=== PATIENT | male | born 1985 | race Caucasian/White ===

== ENCOUNTER 2018-07-25 10:35 | Emergency (ER) | payer SELFPAY ==
[2018-07-25 11:38] LABS: Absolute Monocytes 0.7 K/uL (0.1-1.3); Absolute Neutrophil 7.2 K/uL (1.8-8.0); Basophils % 0.4 % (0-1.3); Eosinophils % 5.5 % (0-4.4); Hematocrit 42.8 % (39.6-49.0); Lymphocytes % 18.5 % (15.3-44.8); MCH 31.8 pg (27.0-35.0); MCV 93.6 fL (80-100); MPV 9.3 fL (7.6-11.3); Monocytes % 6.9 % (3.3-12.3); RBC Red Blood Cell Count 4.57 M/uL (4.33-5.43)
[2018-07-25 11:45] LABS: Protime INR 0.89
[2018-07-25 11:56] LABS: ALT/SGPT 41 U/L (12-78); AST/SGOT 24 U/L (15-37); Albumin 3.8 g/dL (3.4-5.0); Alkaline Phosphatase 102 U/L (45-117); BUN Blood Urea Nitrogen 13 mg/dL (7-18); Bicarbonate 25 mmol/L (21-32); Bilirubin Direct < 0.1 mg/dL (0-0.2); Bilirubin Total 0.3 mg/dL (0.2-1.0); Glucose Level 83 mg/dL (74-106); Magnesium 2.3 mg/dL (1.8-2.4); NT PRO-BNP 16 pg/mL (<125); Potassium 4.2 mmol/L (3.5-5.1); Protein, Total 7.3 g/dL (6.4-8.2); Sodium Level 137 mmol/L (136-145); Troponin (Emerg Dept Use Only) < 0.02 ng/mL (0.0-0.045)
[2018-07-25 12:00] LABS: Urine Blood NEGATIVE (NEG); Urine Glucose NEGATIVE (NEG); Urine Protein NEGATIVE (NEG); Urine Specific Gravity 1.025 (1.005-1.030); Urine pH 5.5 (5.0-7.0)
[2018-07-25 12:15] LABS: Barbiturates NEGATIVE (NEGATIVE); Benzodiazepines NEGATIVE (NEGATIVE); Cocaine NEGATIVE (NEGATIVE); METHAMPHETAM NEGATIVE (NEGATIVE); Methadone NEGATIVE (NEGATIVE); Opiates NEGATIVE (NEGATIVE); Phencyclidine NEGATIVE (NEGATIVE); THC Cannibis NEGATIVE (NEGATIVE)
--- NOTE | 2018-07-25 12:17 | RAD REPORT ---
EXAM DESCRIPTION: Sadiq Single View07/25/2018 11:53 am CLINICAL HISTORY: Chest pain COMPARISON: 2013 FINDINGS: The lungs appear clear of acute infiltrate. The heart is normal size IMPRESSION: No acute abnormalities displayed
[2018-07-25 13:16] LABS: T3 Free 2.95 pg/mL (2.18-3.98); Thyroid Stimulating Hormone 4.75 uIU/mL (0.360-3.740)
--- NOTE | 2018-07-25 13:54 | EKG ---
Test Date: 2018-07-25 Test Time: 11:37:31 Viscose Cellar Worker: NIRANJAN MEASUREMENT RESULTS: Intervals: Rate: 64 MI: 120 QRSD: 106 QT: 396 QTc: 408 [place]: P: 69 MI: 120 QRS: 66 T: 48 INTERPRETIVE STATEMENTS: Normal sinus rhythm Normal ECG Compared to ECG 07/18/2014 14:20:23 Sinus arrhythmia no longer present Electronically Signed On 07-25-18 13:53:08 CDT by Edmund Rios
--- NOTE | 2018-07-25 14:01 | ER ---
Nurse's Notes [facility] Name: Karson Gant Age: 33 yrs Sex: Male : 1985 Arrival Date: 07/25/2018 Time: 10:37 Bed 7 Private MD: Diagnosis: Chest pain, unspecified Presentation: 07/25 10:49 Presenting complaint: Patient states: Dry mouth, chest/ back discomfort and mild, ss bilateral flank pain x 2 days. Pt reports a history of hypothyroidism, but has yet to fill prescription. Transition of care: patient was not received from another setting of care. Onset of symptoms was July 23, 2018. Risk Assessment: Do you want to hurt yourself or someone else? Patient reports no desire to harm self or others. Initial Sepsis Screen: Does the patient meet any 2 criteria? No. Patient's initial sepsis screen is negative. Does the patient have a suspected source of infection? No. Patient's initial sepsis screen is negative. Care prior to arrival: None. 10:49 Method Of Arrival: Ambulatory ss 10:49 Acuity: BASIL 3 ss Historical: - Allergies: 10:49 PENICILLINS; hb - Home Meds: 10:49 None [Active]; hb - PMHx: 10:49 Hypothyroidism; Hypertension; hb - PSHx: 10:49 Tear Duct Sx; hb - Immunization history:: Adult Immunizations up to date. - Social history:: Smoking status: Patient uses tobacco products, smokes one-half pack cigarettes per day, Patient uses street drugs, Methamphetamine (Meth) Patient/guardian denies using alcohol. - Ebola Screening: : No symptoms or risks identified at this time. Screenin:51 Abuse screen: Denies threats or abuse. Denies injuries from another. Nutritional hb screening: No deficits noted. Tuberculosis screening: No symptoms or risk factors identified. Fall Risk None identified. Assessment: 11:00 General: Appears in no apparent distress. Behavior is calm, cooperative. Pain: Pain hb currently is 4 out of 10 on a pain scale. Neuro: Level of Consciousness is awake, alert, obeys commands, Oriented to person, place, time, situation. Cardiovascular: Capillary refill < 3 seconds Patient's skin is warm and dry. Respiratory: Airway is patent Respiratory effort is even, unlabored, Respiratory pattern is regular, symmetrical, Breath sounds are clear bilaterally. GI: No signs and/or symptoms were reported involving the gastrointestinal system. : No signs and/or symptoms were reported regarding the genitourinary system. EENT: No signs and/or symptoms were reported regarding the EENT system. Derm: Skin is intact, is healthy with good turgor, Skin is pink, warm \T\ dry. Musculoskeletal: Reports back oain. 12:00 Reassessment: Patient appears in no apparent distress at this time. No changes from hb previously documented assessment. Patient and/or family updated on plan of care and expected duration. Pain level reassessed. Patient is alert, oriented x 3, equal unlabored respirations, skin warm/dry/pink. 13:00 Reassessment: Patient appears in no apparent distress at this time. No changes from hb previously documented assessment. Patient and/or family updated on plan of care and expected duration. Pain level reassessed. Patient is alert, oriented x 3, equal unlabored respirations, skin warm/dry/pink. 14:00 Reassessment: Patient appears in no apparent distress at this time. No changes from hb previously documented assessment. Patient and/or family updated on plan of care and expected duration. Pain level reassessed. Patient is alert, oriented x 3, equal unlabored respirations, skin warm/dry/pink. Vital Signs: 10:48 BP 115 / 84; Pulse 84; Resp 15; Temp 97.9(TE); Pulse Ox 100% on R/A; Weight 68.04 kg; hb Height 5 ft. 6 in. (167.64 cm); Pain 6/10; 11:45 BP 113 / 85; Pulse 80; Resp 15; Pulse Ox 100% on R/A; hb 13:00 BP 114 / 79; Pulse 61; Resp 16; Pulse Ox 100% on R/A; hb 10:48 Body Mass Index 24.21 (68.04 kg, 167.64 cm) hb ED Course: 10:37 Patient arrived in ED. as 10:46 Kris Andre PA is PHCP. cp 10:46 Kris Echevarria MD is Attending Physician. cp 10:48 Arm band placed on. hb 10:50 Triage completed. ss 11:00 Patient has correct armband on for positive identification. Placed in gown. Bed in low hb position. Call light in reach. Side rails up X 1. 11:31 Initial lab(s) drawn, by sd, sent to lab. Inserted saline lock: 20 gauge in right em1 forearm, using aseptic technique. Blood collected. 11:37 X-ray completed. Portable x-ray completed in exam room. Patient tolerated procedure ag1 well. 11:39 XRAY Chest (1 view) In Process Unspecified. EDMS 11:43 Destiney Barr, RN is Primary Nurse. ss 11:50 EKG done, by solar maintenance technician. reviewed by Kris BABCOCK. at1 13:45 Basic Metabolic Panel Sent. hb 13:45 CBC with Diff Sent. hb 14:09 No provider procedures requiring assistance completed. IV discontinued, intact, hb bleeding controlled, No redness/swelling at site. Pressure dressing applied. Administered Medications: No medications were administered Outcome: 14:00 Discharge ordered by . cp 14:09 Discharged to home ambulatory. hb 14:09 Condition: stable 14:09 Discharge instructions given to patient, Instructed on discharge instructions, follow up and referral plans. medication usage, Demonstrated understanding of instructions, follow-up care, medications. 14:10 Patient left the ED. hb Signatures: Dispatcher [employer] EDCT Mariela Lainez Eric em1 Destiney Barr, RN RN Yuko Gambino, [employer] glazer EKG Tat1 Radha Velazquez ag1 Kris Andre PA PA cp Baxter, Heather, RN RN hb
--- NOTE | 2018-07-25 14:02 | EDPHYS ---
Physician Documentation [facility] Name: Karson Gant Age: 33 yrs Sex: Male : 1985 Arrival Date: 07/25/2018 Time: 10:37 Bed 7 Private MD: ED Physician Kris Echevarria HPI: 07/25 11:39 This 33 yrs old Male presents to ER via Ambulatory with complaints of High cp Blood Pressure, Medication Refill. 11:39 The patient or guardian reports chest pain that is located primarily in the anterior cp chest wall. 11:39 The pain does not radiate. cp 11:39 Associated signs and symptoms: Pertinent positives: abdominal pain, back pain, flank cp pain, Pertinent negatives: cough, diaphoresis, lower extremity pain, lower extremity swelling, shortness of breath, syncope, vomiting. 11:39 The chest pain is described as aching. Duration: The patient or guardian reports cp multiple episodes, that wax and wane, with no pattern. Modifying factors: the symptoms are aggravated by nothing. Severity of pain: in the emergency department the pain has improved moderately. Patient admits to using methamphetamine 2 weeks ago. Historical: - Allergies: 10:49 PENICILLINS; hb - Home Meds: 10:49 None [Active]; hb - PMHx: 10:49 Hypothyroidism; Hypertension; hb - PSHx: 10:49 Tear Duct Sx; hb - Immunization history:: Adult Immunizations up to date. - Social history:: Smoking status: Patient uses tobacco products, smokes one-half pack cigarettes per day, Patient uses street drugs, Methamphetamine (Meth) Patient/guardian denies using alcohol. - Ebola Screening: : No symptoms or risks identified at this time. ROS: 11:40 Constitutional: Negative for body aches, chills, fever, poor PO intake. cp 11:40 Eyes: Negative for injury, pain, redness, and discharge. cp 11:40 ENT: Negative for drainage from ear(s), ear pain, sore throat, difficulty swallowing, difficulty handling secretions. 11:40 Cardiovascular: Positive for chest pain, Negative for edema, palpitations. 11:40 Respiratory: Negative for cough, shortness of breath, wheezing. 11:40 Abdomen/GI: Negative for abdominal pain, nausea, vomiting, and diarrhea, black/tarry stool, rectal bleeding. 11:40 Back: Positive for pain at rest, Negative for injury or acute deformity. 11:40 Skin: Negative for cellulitis, rash. 11:40 Neuro: Negative for altered mental status, dizziness, headache, syncope, near syncope, weakness. 11:40 All other systems are negative. Exam: 11:41 ECG was reviewed by the Attending Physician. cp 11:45 Constitutional: The patient appears in no acute distress, alert, awake, comfortable, cp non-diaphoretic, non-toxic, well developed, well nourished. 11:45 Head/Face: Normocephalic, atraumatic. cp 11:45 Eyes: Pupils equal round and reactive to light, extra-ocular motions intact. Lids and lashes normal. Conjunctiva and sclera are non-icteric and not injected. Cornea within normal limits. Periorbital areas with no swelling, redness, or edema. ENT: Nares patent. No nasal discharge, no septal abnormalities noted. Tympanic membranes are normal and external auditory canals are clear. Oropharynx with no redness, swelling, or masses, exudates, or evidence of obstruction, uvula midline. Mucous membranes moist. Neck: Trachea midline, no thyromegaly or masses palpated, and no cervical lymphadenopathy. Supple, full range of motion without nuchal rigidity, or vertebral point tenderness. No Meningismus. Chest/axilla: Normal chest wall appearance and motion. Nontender with no deformity. No lesions are appreciated. Cardiovascular: Regular rate and rhythm with a normal S1 and S2. No gallops, murmurs, or rubs. Normal PMI, no JVD. No pulse deficits. Respiratory: Lungs have equal breath sounds bilaterally, clear to auscultation and percussion. No rales, rhonchi or wheezes noted. No increased work of breathing, no retractions or nasal flaring. Abdomen/GI: Soft, non-tender, with normal bowel sounds. No distension or tympany. No guarding or rebound. No evidence of tenderness throughout. Back: No spinal tenderness. No costovertebral tenderness. Full range of motion. Skin: Warm, dry with normal turgor. Normal color with no rashes, no lesions, and no evidence of cellulitis. Neuro: Awake and alert, GCS 15, oriented to person, place, time, and situation. Cranial nerves II-XII grossly intact. Motor strength 5/5 in all extremities. Sensory grossly intact. Cerebellar exam normal. Normal gait. Vital Signs: 10:48 BP 115 / 84; Pulse 84; Resp 15; Temp 97.9(TE); Pulse Ox 100% on R/A; Weight 68.04 kg; hb Height 5 ft. 6 in. (167.64 cm); Pain 6/10; 11:45 BP 113 / 85; Pulse 80; Resp 15; Pulse Ox 100% on R/A; hb 13:00 BP 114 / 79; Pulse 61; Resp 16; Pulse Ox 100% on R/A; hb 10:48 Body Mass Index 24.21 (68.04 kg, 167.64 cm) hb MDM: 10:46 Patient medically screened. cp 12:00 Differential diagnosis: abnormal EKG, acute myocardial infarction, acute pericarditis, cp chest wall pain, Cholelithiasis costochondritis, pericarditis, pleurisy, pneumonia, pneumothorax, pulmonary embolus, stable angina, unstable angina. 14:00 Data reviewed: vital signs, nurses notes, lab test result(s), EKG, radiologic studies, cp plain films. 14:00 Test interpretation: by ED physician or midlevel provider: ECG, plain radiologic cp studies. Counseling: I had a detailed discussion with the patient and/or guardian regarding: the historical points, exam findings, and any diagnostic results supporting the discharge/admit diagnosis, lab results, radiology results, the need for outpatient follow up, a family practitioner, to return to the emergency department if symptoms worsen or persist or if there are any questions or concerns that arise at home. Special discussion: Based on the patient's history, exam, and Dx evaluation, there is no indication for emergent intervention or inpatient Tx. It is understood by the patient/guardian that if the Sx's persist or worsen they need to return immediately for re-evaluation. 07/25 11:13 Order name: Basic Metabolic Panel cp 07/25 11:13 Order name: CBC with Diff cp 07/25 11:13 Order name: LFT's; Complete Time: 12:29 cp 07/25 11:13 Order name: Magnesium; Complete Time: 12:29 cp 07/25 13:48 Interpretation: MG 2.3; Reviewed. cp 07/25 11:13 Order name: NT PRO-BNP; Complete Time: 12:29 cp 07/25 11:13 Order name: PT-INR; Complete Time: 12:29 cp 07/25 11:13 Order name: Troponin (emerg Dept Use Only); Complete Time: 12:29 cp 07/25 12:30 Interpretation: TROPED < 0.02; Reviewed. cp 07/25 11:13 Order name: UDS; Complete Time: 12:29 cp 07/25 12:31 Interpretation: Reviewed. cp 07/25 11:13 Order name: Basic Metabolic Panel; Complete Time: 12:29 EDMS 07/25 11:13 Order name: CBC with Automated Diff; Complete Time: 12:29 EDMS 07/25 12:31 Interpretation: Normal except: EOSINOPHIL % 5.5; EOSA 0.6. cp 07/25 11:57 Order name: Urine Dipstick--Ancillary (enter results); Complete Time: 12:29 bd 07/25 12:30 Order name: TSH; Complete Time: 13:47 cp 07/25 13:47 Interpretation: Abnormal: TSH 4.750. cp 07/25 12:30 Order name: T3 Free; Complete Time: 13:47 cp 07/25 13:47 Interpretation: Within normal limits: T3F 2.95. cp 07/25 11:13 Order name: XRAY Chest (1 view); Complete Time: 12:29 cp 07/25 12:30 Interpretation: Report review. cp 07/25 11:13 Order name: EKG; Complete Time: 11:13 cp 07/25 11:13 Order name: Cardiac monitoring; Complete Time: 11:56 cp 07/25 11:13 Order name: EKG - Nurse/Tech; Complete Time: 11:56 cp 07/25 11:13 Order name: IV Saline Lock; Complete Time: 11:40 cp 07/25 11:13 Order name: Labs collected and sent; Complete Time: 11:40 cp 07/25 11:13 Order name: O2 Per Protocol; Complete Time: 11:56 cp 07/25 11:13 Order name: O2 Sat Monitoring; Complete Time: 11:56 cp 07/25 12:32 Order name: Urine Dipstick-Ancillary (obtain specimen); Complete Time: 12:34 cp 07/25 13:17 Order name: T4 Free; Complete Time: 13:47 EDMS EC:41 Rate is 64 beats/min. Rhythm is regular. MA interval is normal. QRS interval is cp prolonged at 106 msec. QT interval is normal. Interpreted by me. Reviewed by me. Administered Medications: No medications were administered Disposition: 07/26 09:00 Co-signature as Attending Physician, Kris Echevarria MD I agree with the assessment and [facility] plan of care. Disposition: 07/25/18 14:00 Discharged to Home. Impression: Chest pain, unspecified. - Condition is Stable. - Discharge Instructions: Nonspecific Chest Pain. - Medication Reconciliation Form, Thank You Letter, Antibiotic Education, Prescription Opioid Use form. - Follow up: Private Physician; When: 2 - 3 days; Reason: Recheck today's complaints. - Problem is new. - Symptoms have improved. Signatures: Dispatcher [employer] EDMS Kris Echevarria MD MD cha Page, Corey PA PA cp Linda Colby, RN RN Corrections: (The following items were deleted from the chart) 07/25 12:31 12:29 Normal except: EOSINOPHIL % 5.5. cp cp 14:10 14:00 07/25/2018 14:00 Discharged to Home. Impression: Chest pain, unspecified. hb Condition is Stable. Forms are Medication Reconciliation Form, Thank You Letter, Antibiotic Education, Prescription Opioid Use. Follow up: Private Physician; When: 2 - 3 days; Reason: Recheck today's complaints. Problem is new. Symptoms have improved. cp
[2018-07-25 14:22] VITALS: TEMP 97.9; O2SAT 100
[2018-07-25 14:24] VITALS: BP 114/79
== END 2018-07-25 14:10 | disposition home or self-care (01) ==
LOC: ER 10:35
DX: R07.9 Chest pain, unspecified (principal); Z76.0 Encounter for issue of repeat prescription; Z88.0 Allergy status to penicillin
CPT/HCPCS: 36415; 71045; 80048; 80076; 80307; 81003; 83735; 83880; 84439; 84443; 84481; 84484; 85025; 85610; 93005; 99284

== ENCOUNTER 2019-01-03 03:45 | Emergency (ER) | payer SELFPAY ==
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
--- NOTE | 2019-01-03 04:48 | EDPHYS ---
Physician Documentation [facility] Name: Karson Gant Age: 33 yrs Sex: Male : 1985 Arrival Date: 01/03/2019 Time: 03:45 Bed 2 Private MD: JOSELIN Physician Kris Echevarria HPI: 01/03 04:42 This 33 yrs old Male presents to ER via EMS with complaints of Abscess. esperanza 04:42 The patient presents with an abscess of the back, The patient presents with cellulitis esperanza of the back, the patient presents with a swollen area of the back. Description: erythematous, fluctuant, raised. Onset: The symptoms/episode began/occurred 3 day(s) ago. Possible cause(s): unknown. Associated signs and symptoms: Pertinent positives: erythema. Modifying factors: the symptoms are alleviated by remaining still, the symptoms are aggravated by pressure, squeezing the lesion and expressing the contents, touching. Severity of symptoms: At their worst the symptoms were mild, moderate, in the emergency department the symptoms are unchanged. The patient has not experienced similar symptoms in the past. Historical: - Allergies: 03:50 PENICILLINS; tl2 - Home Meds: 03:50 None [Active]; tl2 - PMHx: 03:50 Hypertension; Hypothyroidism; tl2 - PSHx: 03:50 tear duct; tl2 - Immunization history:: Adult Immunizations up to date. - Social history:: Smoking status: Patient uses tobacco products, smokes one pack cigarettes per day. - Ebola Screening: : No symptoms or risks identified at this time. - Family history:: not pertinent. ROS: 04:42 Constitutional: Negative for fever, chills, and weight loss, Eyes: Negative for injury, esperanza pain, redness, and discharge, ENT: Negative for injury, pain, and discharge, Neck: Negative for injury, pain, and swelling, Cardiovascular: Negative for chest pain, palpitations, and edema, Respiratory: Negative for shortness of breath, cough, wheezing, and pleuritic chest pain, Abdomen/GI: Negative for abdominal pain, nausea, vomiting, diarrhea, and constipation, Back: Negative for injury and pain, : Negative for injury, bleeding, discharge, and swelling, MS/Extremity: Negative for injury and deformity, Neuro: Negative for headache, weakness, numbness, tingling, and seizure, Psych: Negative for depression, anxiety, suicide ideation, homicidal ideation, and hallucinations, Allergy/Immunology: Negative for hives, rash, and allergies, Endocrine: Negative for neck swelling, polydipsia, polyuria, polyphagia, and marked weight changes, Hematologic/Lymphatic: Negative for swollen nodes, abnormal bleeding, and unusual bruising. 04:42 Skin: Positive for erythema, swelling. Exam: 04:42 Constitutional: This is a well developed, well nourished patient who is awake, alert, esperanza and in no acute distress. Head/Face: Normocephalic, atraumatic. Eyes: Pupils equal round and reactive to light, extra-ocular motions intact. Lids and lashes normal. Conjunctiva and sclera are non-icteric and not injected. Cornea within normal limits. Periorbital areas with no swelling, redness, or edema. ENT: Nares patent. No nasal discharge, no septal abnormalities noted. Tympanic membranes are normal and external auditory canals are clear. Oropharynx with no redness, swelling, or masses, exudates, or evidence of obstruction, uvula midline. Mucous membranes moist. Neck: Trachea midline, no thyromegaly or masses palpated, and no cervical lymphadenopathy. Supple, full range of motion without nuchal rigidity, or vertebral point tenderness. No Meningismus. Chest/axilla: Normal chest wall appearance and motion. Nontender with no deformity. No lesions are appreciated. Cardiovascular: Regular rate and rhythm with a normal S1 and S2. No gallops, murmurs, or rubs. Normal PMI, no JVD. No pulse deficits. Respiratory: Lungs have equal breath sounds bilaterally, clear to auscultation and percussion. No rales, rhonchi or wheezes noted. No increased work of breathing, no retractions or nasal flaring. Abdomen/GI: Soft, non-tender, with normal bowel sounds. No distension or tympany. No guarding or rebound. No evidence of tenderness throughout. Back: No spinal tenderness. No costovertebral tenderness. Full range of motion. MS/ Extremity: Pulses equal, no cyanosis. Neurovascular intact. Full, normal range of motion. Neuro: Awake and alert, GCS 15, oriented to person, place, time, and situation. Cranial nerves II-XII grossly intact. Motor strength 5/5 in all extremities. Sensory grossly intact. Cerebellar exam normal. Normal gait. Psych: Awake, alert, with orientation to person, place and time. Behavior, mood, and affect are within normal limits. 04:42 Skin: Appearance: Temperature: hot, Moisture: normal moisture, petechiae, not noted, ecchymosis, not noted, abscess, that is moderate sized, of the back, cellulitis, that is mild, that is moderate, induration, that is moderate is noted. Vital Signs: 03:50 BP 135 / 98; Pulse 74; Resp 18; Temp 98.6(O); Pulse Ox 98% on R/A; Weight 61.23 kg; tl2 Height 5 ft. 6 in. (167.64 cm); Pain 8/10; 04:47 BP 127 / 86; Pulse 64; Resp 16; Pulse Ox 100% on R/A; aa1 05:46 BP 129 / 73; Pulse 71; Resp 16; Pulse Ox 98% on R/A; Pain 0/10; aa1 03:50 Body Mass Index 21.79 (61.23 kg, 167.64 cm) tl2 MDM: 03:59 Patient medically screened. [facility] 04:42 Data reviewed: vital signs, nurses notes. [facility] 01/03 04:42 Order name: Dressing - Wound [facility] 01/03 04:42 Order name: Gloves, Sterile; Complete Time: 04:54 [facility] 01/03 04:42 Order name: Setup Suture Tray; Complete Time: 04:54 [facility] Administered Medications: 04:54 Drug: Doxycycline 200 mg Route: PO; aa1 05:44 Follow up: Response: No adverse reaction aa1 04:54 Drug: Bactrim (160 mg-800 mg (DS) 1 tablet Route: PO; aa1 05:44 Follow up: Response: No adverse reaction aa1 05:30 Drug: Lidocaine-Epinephrine -1%: (1:100,000) 1 application Volume: 20 ml; Route: aa1 Infiltration; Disposition: 01/03/19 04:48 Discharged to Home. Impression: Cutaneous abscess of back [any part, except buttock], Cellulitis of back [any part except buttock]. - Condition is Stable. - Discharge Instructions: Skin Abscess, Cellulitis, Adult, Incision and Drainage, Cellulitis, Adult, [id number], Incision and Drainage, Care After. - Prescriptions for Tylenol- Codeine #3 300-30 mg Oral Tablet - take 2 tablets by ORAL route every 6 hours As needed; 26 tablet. Doxycycline Hyclate 100 mg Oral Tablet - take 1 tablet by ORAL route every 12 hours; 20 tablet. Bactrim DS 800- 160 mg Oral Tablet - take 1 tablet by ORAL route every 12 hours for 10 days; 20 tablet. - Medication Reconciliation Form, Thank You Letter, Antibiotic Education, Prescription Opioid Use form. - Follow up: Private Physician; When: 2 - 3 days; Reason: Recheck today's complaints, Continuance of care, Re-evaluation by your physician. Follow up: Stew Ngo MD; When: 2 - 3 days; Reason: Recheck today's complaints, Re-evaluation by your physician. - Problem is new. - Symptoms have improved. Signatures: Nai Bower RN RN aa1 Kris Echevarria MD MD cha Knox, Taylor, RN RN tl2 Corrections: (The following items were deleted from the chart) 05:53 04:48 01/03/2019 04:48 Discharged to Home. Impression: Cutaneous abscess of back [any aa1 part, except buttock]; Cellulitis of back [any part except buttock]. Condition is Stable. Forms are Medication Reconciliation Form, Thank You Letter, Antibiotic Education, Prescription Opioid Use. Follow up: Private Physician; When: 2 - 3 days; Reason: Recheck today's complaints, Continuance of care, Re-evaluation by your physician. Follow up: Dr. Stew Ngo; When: 2 - 3 days; Reason: Recheck today's complaints, Re-evaluation by your physician. Problem is new. Symptoms have improved. esperanza
[2019-01-03] MEDS ORDERED: SMZ./TMP. 800/160 MG TABLET ONE (04:56)
[2019-01-03] MEDS ORDERED: DOXYCYCLINE 100 MG CAP PO ONE (04:56)
[2019-01-03] MEDS ORDERED: LIDOCAINE 1% W/EPI 1:100,000 MDV 50 ML VIAL ONE (04:56)
[2019-01-03 05:57] VITALS: TEMP 98.6
[2019-01-03 06:00] VITALS: BP 129/73; O2SAT 98
== END 2019-01-03 05:53 | disposition home or self-care (01) ==
LOC: ER 03:45
PROC: 0J970ZZ Drainage of Back Subcutaneous Tissue and Fascia, Open Approach (ICD-10-PCS; principal; 2019-01-03)
DX: L02.212 Cutaneous abscess of back [any part, except buttock and flank] (principal); L03.312 Cellulitis of back [any part except buttock and flank]; I10 Essential (primary) hypertension; E03.9 Hypothyroidism, unspecified; F17.210 Nicotine dependence, cigarettes, uncomplicated
CPT/HCPCS: 99283

== ENCOUNTER 2019-01-19 11:48 | Emergency (ER) | payer SELFPAY ==
[2019-01-19] MEDS ORDERED: ONDANSETRON 4 MG/2 ML VIAL ONE (12:22)
[2019-01-19] MEDS ORDERED: NA CHLORIDE 0.9% 1,000 ML ONE ×2 (12:22→13:24)
[2019-01-19 12:36] LABS: Absolute Lymphocytes (CBC) 3.8 K/uL (0.7-4.9); Absolute Monocytes 1.4 K/uL (0.1-1.3); Absolute Neutrophil 11.9 K/uL (1.8-8.0); Basophils % 0.4 % (0-1.3); Eosinophils % 7.4 % (0-4.4); Hematocrit 44.3 % (39.6-49.0); Lymphocytes % 20.4 % (15.3-44.8); MPV 8.6 fL (7.6-11.3); Monocytes % 7.6 % (3.3-12.3); RBC Red Blood Cell Count 4.75 M/uL (4.33-5.43)
[2019-01-19] MEDS ORDERED: PROMETHAZINE 25 MG/ML VIAL ONE (12:54)
[2019-01-19 12:59] LABS: ALT/SGPT 18 U/L (12-78); AST/SGOT 13 U/L (15-37); Albumin 4.1 g/dL (3.4-5.0); Alkaline Phosphatase 95 U/L (45-117); BUN Blood Urea Nitrogen 11 mg/dL (7-18); Bicarbonate 31 mmol/L (21-32); Bilirubin Direct < 0.1 mg/dL (0-0.2); Bilirubin Total 0.3 mg/dL (0.2-1.0); Glucose Level 99 mg/dL (74-106); Lipase 58 U/L (73-393); Potassium 4.2 mmol/L (3.5-5.1); Protein, Total 8.2 g/dL (6.4-8.2); Sodium Level 144 mmol/L (136-145)
[2019-01-19 13:00] LABS: Urine Blood NEGATIVE (NEG); Urine Glucose NEGATIVE (NEG); Urine Protein TRACE (NEG)
[2019-01-19 13:07] LABS: Barbiturates NEGATIVE (NEGATIVE); Benzodiazepines NEGATIVE (NEGATIVE); Cocaine NEGATIVE (NEGATIVE); Methadone NEGATIVE (NEGATIVE); Opiates NEGATIVE (NEGATIVE); Phencyclidine NEGATIVE (NEGATIVE)
[2019-01-19 13:08] LABS: METHAMPHETAM POSITIVE (NEGATIVE); THC Cannibis POSITIVE (NEGATIVE)
--- NOTE | 2019-01-19 14:39 | ER ---
Nurse's Notes [facility] Name: Karson Gant Age: 33 yrs Sex: Male : 1985 Arrival Date: 01/19/2019 Time: 11:49 Bed 16 Private MD: Diagnosis: Nausea and vomiting;Diarrhea, unspecified Presentation: 01/19 11:49 Presenting complaint: Patient states: N/V/D for 2 days. Patient states "I'm detoxing aj off of meth, last use was 1 week ago.". Transition of care: patient was not received from another setting of care. Onset of symptoms was January 17, 2019. Risk Assessment: Do you want to hurt yourself or someone else? Patient reports no desire to harm self or others. Initial Sepsis Screen: Does the patient meet any 2 criteria? No. Patient's initial sepsis screen is negative. Does the patient have a suspected source of infection? No. Patient's initial sepsis screen is negative. Care prior to arrival: None. 11:49 Method Of Arrival: EMS: [facility] 11:49 Acuity: BASIL 3 aj Triage Assessment: 11:51 General: Appears in no apparent distress. comfortable, Behavior is calm, cooperative, aj appropriate for age. Pain: Complains of pain in abdomen. Neuro: Level of Consciousness is awake, alert, obeys commands, Oriented to person, place, time, situation, Appropriate for age. Respiratory: Airway is patent Respiratory effort is even, unlabored, Respiratory pattern is regular, symmetrical. GI: Abdomen is flat, non-distended, Reports diarrhea, nausea, vomiting. Derm: Skin is intact, is healthy with good turgor, Skin is pink, warm \\T\\ dry. normal. Historical: - Allergies: 11:51 PENICILLINS; aj - Home Meds: 11:51 None [Active]; aj - PMHx: 11:51 Hypertension; Hypothyroidism; aj - PSHx: 11:51 None; aj - Immunization history:: Adult Immunizations unknown. - Social history:: Smoking status: Patient uses tobacco products, smokes one pack cigarettes per day. Patient uses street drugs, marijuana, Methamphetamine (Meth). - Ebola Screening: : Patient negative for fever greater than or equal to 101.5 degrees Fahrenheit, and additional compatible Ebola Virus Disease symptoms Patient denies exposure to infectious person Patient denies travel to an Ebola-affected area in the 21 days before illness onset No symptoms or risks identified at this time. Screenin:27 Abuse screen: Denies threats or abuse. Denies injuries from another. Nutritional aj screening: No deficits noted. Tuberculosis screening: No symptoms or risk factors identified. Fall Risk None identified. Assessment: 12:26 Reassessment: No changes from previously documented assessment. aj 13:15 Reassessment: Patient appears in no apparent distress at this time. No changes from aj previously documented assessment. Patient and/or family updated on plan of care and expected duration. Pain level reassessed. Patient is alert, oriented x 3, equal unlabored respirations, skin warm/dry/pink. Patient is resting in bed comfortably Patient states feeling better. Patient states symptoms have improved. 14:52 Reassessment: Patient appears in no apparent distress at this time. Patient and/or aj family updated on plan of care and expected duration. Pain level reassessed. Patient is alert, oriented x 3, equal unlabored respirations, skin warm/dry/pink. Patient denies pain at this time. Patient states feeling better. Patient states symptoms have improved. Vital Signs: 11:51 BP 117 / 83; Pulse 67; Resp 20; Temp 98.1; Pulse Ox 100% on R/A; Weight 72.57 kg; aj Height 5 ft. 6 in. (167.64 cm); 14:53 BP 119 / 79; Pulse 69; Resp 20; Pulse Ox 100% on R/A; aj 11:51 Body Mass Index 25.82 (72.57 kg, 167.64 cm) aj ED Course: 11:49 Patient arrived in ED. aj 11:50 Matilda Gee FNP-C is PHCP. kb 11:50 Debby Dunlap MD is Attending Physician. kb 11:50 Triage completed. aj 11:51 Arm band placed on left wrist. Patient placed in an exam room, on a stretcher, on pulse aj oximetry. 12:01 Yuko Simeon, ASLUD is Primary Nurse. aj 12:27 Inserted saline lock: 22 gauge in left antecubital area, using aseptic technique. Blood aj collected. 12:35 Patient has correct armband on for positive identification. iw 15:16 No provider procedures requiring assistance completed. IV discontinued, intact, iw bleeding controlled, No redness/swelling at site. Pressure dressing applied. Administered Medications: 12:26 Drug: NS 0.9% 1000 ml Route: IV; Rate: 1000 ml; Site: left antecubital; aj 15:17 Follow up: IV Status: Completed infusion iw 12:26 Drug: Zofran 4 mg Route: IVP; Site: left antecubital; aj 14:51 Follow up: Response: Nausea is decreased aj 12:45 Drug: Phenergan 12.5 mg Route: IVP; Site: left antecubital; aj 14:51 Follow up: Response: Nausea is decreased aj 13:14 Drug: NS 0.9% 1000 ml Route: IV; Rate: 1 bolus; Site: left antecubital; aj 15:17 Follow up: IV Status: Completed infusion iw Outcome: 14:39 Discharge ordered by . kb 15:16 Discharged to home ambulatory. iw 15:16 Condition: good 15:16 Discharge instructions given to patient, Instructed on discharge instructions, follow up and referral plans. medication usage, Demonstrated understanding of instructions, follow-up care, medications, Prescriptions given X 1. 15:17 Patient left the ED. iw Signatures: Matilda Gee, ITEM PROCESSING CLERK-C ITEM PROCESSING CLERK-CkYuko Pratt, RN RN Chasity Mcfadden, RN RN iw Corrections: (The following items were deleted from the chart) 13:15 11:51 BP 117 / 83; Pulse 67bpm; Resp 20bpm; Pulse Ox 100% RA; aj aj
--- NOTE | 2019-01-19 14:39 | EDPHYS ---
Physician Documentation [facility] Name: Karson Gant Age: 33 yrs Sex: Male : 1985 Arrival Date: 01/19/2019 Time: 11:49 Bed 16 Private MD: ED Physician Debby Dunlap HPI: 01/19 11:59 This 33 yrs old Male presents to ER via EMS with complaints of kb Nausea/Vomiting/Diarrhea. 11:59 The patient presents to the emergency department with nausea, vomiting, diarrhea, kb abdominal pain. Onset: The symptoms/episode began/occurred this morning. Possible causes: stopped using meth one week ago. The symptoms are aggravated by nothing. The symptoms are alleviated by nothing. Associated signs and symptoms: Pertinent positives: diarrhea, nausea, vomiting, Pertinent negatives: abdominal pain, anorexia, belching, constipation, dysuria, fever, flatulence, GI bleeding, hematuria. Severity of symptoms: At their worst the symptoms were moderate in the emergency department the symptoms are unchanged. The patient has experienced a previous episode, "same as last time I came off a drug, but it wasn't meth that time.". The patient has not recently seen a physician. Historical: - Allergies: 11:51 PENICILLINS; aj - Home Meds: 11:51 None [Active]; aj - PMHx: 11:51 Hypertension; Hypothyroidism; aj - PSHx: 11:51 None; aj - Immunization history:: Adult Immunizations unknown. - Social history:: Smoking status: Patient uses tobacco products, smokes one pack cigarettes per day. Patient uses street drugs, marijuana, Methamphetamine (Meth). - Ebola Screening: : Patient negative for fever greater than or equal to 101.5 degrees Fahrenheit, and additional compatible Ebola Virus Disease symptoms Patient denies exposure to infectious person Patient denies travel to an Ebola-affected area in the 21 days before illness onset No symptoms or risks identified at this time. ROS: 11:58 Constitutional: Negative for fever, chills, and weight loss, ENT: Negative for injury, kb pain, and discharge, Neck: Negative for injury, pain, and swelling, Cardiovascular: Negative for chest pain, palpitations, and edema, Respiratory: Negative for shortness of breath, cough, wheezing, and pleuritic chest pain, Back: Negative for injury and pain, : Negative for injury, bleeding, discharge, and swelling, MS/Extremity: Negative for injury and deformity, Skin: Negative for injury, rash, and discoloration, Neuro: Negative for headache, weakness, numbness, tingling, and seizure. 11:58 Abdomen/GI: Positive for abdominal pain, nausea, vomiting, and diarrhea, Negative for constipation, abdominal cramps, abdominal distension, anorexia. Exam: 11:58 Constitutional: This is a well developed, well nourished patient who is awake, alert, kb and in no acute distress. Head/Face: Normocephalic, atraumatic. Chest/axilla: Normal chest wall appearance and motion. Nontender with no deformity. No lesions are appreciated. Cardiovascular: Regular rate and rhythm with a normal S1 and S2. No gallops, murmurs, or rubs. Normal PMI, no JVD. No pulse deficits. Respiratory: Lungs have equal breath sounds bilaterally, clear to auscultation and percussion. No rales, rhonchi or wheezes noted. No increased work of breathing, no retractions or nasal flaring. Abdomen/GI: Soft, non-tender, with normal bowel sounds. No distension or tympany. No guarding or rebound. No evidence of tenderness throughout. Skin: Warm, dry with normal turgor. Normal color with no rashes, no lesions, and no evidence of cellulitis. MS/ Extremity: Pulses equal, no cyanosis. Neurovascular intact. Full, normal range of motion. Neuro: Awake and alert, GCS 15, oriented to person, place, time, and situation. Cranial nerves II-XII grossly intact. Motor strength 5/5 in all extremities. Sensory grossly intact. Cerebellar exam normal. Normal gait. Vital Signs: 11:51 BP 117 / 83; Pulse 67; Resp 20; Temp 98.1; Pulse Ox 100% on R/A; Weight 72.57 kg; aj Height 5 ft. 6 in. (167.64 cm); 14:53 BP 119 / 79; Pulse 69; Resp 20; Pulse Ox 100% on R/A; aj 11:51 Body Mass Index 25.82 (72.57 kg, 167.64 cm) aj MDM: 11:50 Patient medically screened. kb 11:58 Data reviewed: vital signs, nurses notes. Data interpreted: Pulse oximetry: on room air kb is 100 %. Interpretation: normal. 14:38 Counseling: I had a detailed discussion with the patient and/or guardian regarding: the kb historical points, exam findings, and any diagnostic results supporting the discharge/admit diagnosis, lab results, the need for outpatient follow up, a family practitioner, to return to the emergency department if symptoms worsen or persist or if there are any questions or concerns that arise at home. ED course: Tolerating PO intake. 01/19 11:55 Order name: Basic Metabolic Panel; Complete Time: 12:59 kb 01/19 11:55 Order name: CBC with Diff; Complete Time: 12:40 kb 01/19 11:55 Order name: Hepatic Function; Complete Time: 12:59 kb 01/19 11:55 Order name: Lipase; Complete Time: 12:59 kb 01/19 12:06 Order name: UDS; Complete Time: 13:12 kb 01/19 12:27 Order name: Urine Dipstick--Ancillary (enter results); Complete Time: 13:02 eb 01/19 11:55 Order name: IV Saline Lock; Complete Time: 12:26 kb 01/19 11:55 Order name: Labs collected and sent; Complete Time: 12:26 kb 01/19 13:36 Order name: PO challenge; Complete Time: 14:51 kb Administered Medications: 12:26 Drug: NS 0.9% 1000 ml Route: IV; Rate: 1000 ml; Site: left antecubital; aj 15:17 Follow up: IV Status: Completed infusion iw 12:26 Drug: Zofran 4 mg Route: IVP; Site: left antecubital; aj 14:51 Follow up: Response: Nausea is decreased aj 12:45 Drug: Phenergan 12.5 mg Route: IVP; Site: left antecubital; aj 14:51 Follow up: Response: Nausea is decreased aj 13:14 Drug: NS 0.9% 1000 ml Route: IV; Rate: 1 bolus; Site: left antecubital; aj 15:17 Follow up: IV Status: Completed infusion iw Disposition: 17:13 Co-signature as Attending Physician, Debby Dunlap MD. ma2 Disposition: 01/19/19 14:39 Discharged to Home. Impression: Nausea and vomiting, Diarrhea, unspecified. - Condition is Stable. - Discharge Instructions: Nausea and Vomiting, Adult, [id number], Diarrhea, Adult, [id number]. - Prescriptions for Zofran 4 mg Oral Tablet - take 1 tablet by ORAL route every 6 hours As needed; 20 tablet. - Medication Reconciliation Form, Thank You Letter, Antibiotic Education, Prescription Opioid Use form. - Follow up: Emergency Department; When: As needed; Reason: Worsening of condition. Follow up: Private Physician; When: 2 - 3 days; Reason: Recheck today's complaints, Continuance of care, Re-evaluation by your physician. Signatures: Dispatcher [employer] Matilda Gee, NURSE EXECUTIVE-C NURSE EXECUTIVE-Yuko Choe, RN RN Chasity Mcfadden RN RN Debby Shahid MD MD ma2 Corrections: (The following items were deleted from the chart) 15:17 14:39 01/19/2019 14:39 Discharged to Home. Impression: Nausea and vomiting; Diarrhea, iw unspecified. Condition is Stable. Forms are Medication Reconciliation Form, Thank You Letter, Antibiotic Education, Prescription Opioid Use. Follow up: Emergency Department; When: As needed; Reason: Worsening of condition. Follow up: Private Physician; When: 2 - 3 days; Reason: Recheck today's complaints, Continuance of care, Re-evaluation by your physician. kb
[2019-01-19 16:02] VITALS: TEMP 98.1; O2SAT 100
[2019-01-19 16:03] VITALS: BP 119/79
== END 2019-01-19 15:17 | disposition home or self-care (01) ==
LOC: ER 11:48
DX: R11.2 Nausea with vomiting, unspecified (principal); R19.7 Diarrhea, unspecified; F17.210 Nicotine dependence, cigarettes, uncomplicated; Z88.0 Allergy status to penicillin
CPT/HCPCS: 36415; 80048; 80076; 80307; 81003; 83690; 85025; 96361; 96374; 96375; 99284; J2405; J2550; J7030

== ENCOUNTER 2019-05-21 18:04 | Inpatient (IN) | payer SELFPAY ==
[2019-05-21] MEDS ORDERED: FAMOTIDINE 20 MG/2 ML VIAL IV ONE (18:35)
[2019-05-21] MEDS ORDERED: NA CHLORIDE 0.9% 2,000 ML ONE (18:35)
[2019-05-21] MEDS ORDERED: ONDANSETRON 4 MG/2 ML VIAL ONE (18:35)
[2019-05-21 19:04] LABS: Absolute Lymphocytes (CBC) 1.7 K/uL (0.7-4.9); Basophils % 0.5 % (0-1.3); Hematocrit 41.9 % (39.6-49.0); MPV 9.8 fL (7.6-11.3); RBC Red Blood Cell Count 4.54 M/uL (4.33-5.43)
[2019-05-21 19:09] LABS: Protime INR 1.35
--- NOTE | 2019-05-21 19:10 | RAD REPORT ---
EXAM DESCRIPTION: RAD - Chest Single View - 05/21/2019 6:43 pm CLINICAL HISTORY: Weakness, shortness of breath COMPARISON: June 2018 TECHNIQUE: AP portable chest image was obtained 1838 hours . FINDINGS: Lungs are clear. Heart and vasculature are normal. No measurable pleural effusion and no p neumothorax. No acute bony abnormality seen. No acute aortic findings suspected. IMPRESSION: No acute cardiopulmonary process. No significant interval change.
[2019-05-21] MEDS ORDERED: NA CHLORIDE 0.9% 1,000 ML ONE ×2 (19:22→20:41)
[2019-05-21 19:23] LABS: ALT/SGPT 100 U/L (12-78); AST/SGOT 65 U/L (15-37); Albumin 3.3 g/dL (3.4-5.0); Alkaline Phosphatase 133 U/L (45-117); BUN Blood Urea Nitrogen 29 mg/dL (7-18); Bicarbonate 27 mmol/L (21-32); Bilirubin Direct 0.2 mg/dL (0-0.2); Bilirubin Total 0.6 mg/dL (0.2-1.0); Glucose Level 85 mg/dL (74-106); Magnesium 1.7 mg/dL (1.8-2.4); NT PRO-BNP 1038 pg/mL (<125); Potassium 4.1 mmol/L (3.5-5.1); Sodium Level 137 mmol/L (136-145); Troponin (Emerg Dept Use Only) < 0.02 ng/mL (0.0-0.045)
[2019-05-21 20:27] LABS: Barbiturates NEGATIVE (NEGATIVE); Benzodiazepines NEGATIVE (NEGATIVE); Cocaine NEGATIVE (NEGATIVE); METHAMPHETAM POSITIVE (NEGATIVE); Methadone NEGATIVE (NEGATIVE); Opiates NEGATIVE (NEGATIVE); Phencyclidine NEGATIVE (NEGATIVE); THC Cannibis NEGATIVE (NEGATIVE)
--- NOTE | 2019-05-21 20:38 | RAD REPORT ---
EXAM DESCRIPTION: CT - Abdomen Pelvis Wo Contrast - 05/21/2019 7:45 pm CLINICAL HISTORY: nausea/vomiting/diarrhea Abdominal pain COMPARISON: <Comparisons> None. TECHNIQUE: Axial [address] imaging of the abdomen and pelvis was performed without IV contrast. No IV contrast was given because of allergy, abnormal renal function, patient refusal or physician re quest. No oral contrast was given. All CT scans are performed using dose optimization technique as appropriate and may include automated exposure control or mA/KV adjustment according to patient size. FINDINGS: No suspicious findings in the lung bases. The liver, spleen and pancreas show no suspicious findings on non-contrast imaging. Gallbladder and b iliary tree are also without suspicious finding. No hydronephrosis or suspicious renal mass. No significant adrenal finding. Isodense renal masses an d pyelonephritis cannot be excluded in the absence of IV contrast. The urinary bladder is without sig nificant finding. No dilated bowel loops or bowel wall thickening. No free air, free fluid or inflammatory stranding. No hernia, mass or bulky lymphadenopathy. No suspicious bony findings. IMPRESSION: Non-contrast enhanced CT abdomen and pelvis imaging show no significant or suspicious fi nding. Full assessment is limited is the absence of IV contrast.
[2019-05-21 20:44] LABS: Blood Morphology Comment NOT SEEN (NOT SEEN); Platelet Estimate ADEQ
[2019-05-21] MEDS ORDERED: NA CHLORIDE 0.9% 250 ML ONE ×2 (21:11→21:12)
[2019-05-21] MEDS ORDERED: CEFEPIME 2 GM VIAL ONE (21:11)
[2019-05-21] MEDS ORDERED: VANCOMYCIN 1 GM/VIAL ONE (21:12)
[2019-05-21 21:38] LABS: Urine Bacteria <20 /HPF (NONE SEEN); Urine Culture Reflex Order NOT NEEDED; Urine Mucus 1+ /HPF (NONE SEEN); Urine RBC <5 /HPF (NONE SEEN)
--- NOTE | 2019-05-21 21:48 | EDPHYS ---
Physician Documentation [facility] Name: Karson Gant Age: 34 yrs Sex: Male : 1985 Arrival Date: 05/21/2019 Time: 18:06 Bed 25 Private MD: ED Physician Kris Echevarria HPI: 05/21 18:40 This 34 yrs old Male presents to ER via EMS with complaints of Heat Exposure. cp 18:40 The patient presents to the emergency department with nausea, that is mild, vomiting, cp that is continuous, described as bilious, diarrhea, that is continuous, abdominal pain, of the epigastric area, described as dull, and does not radiate. 18:40 Onset: The symptoms/episode began/occurred yesterday. cp 18:40 Possible causes: unknown. Associated signs and symptoms: Pertinent positives: abdominal cp pain, Pertinent negatives: constipation, fever, GI bleeding. Severity of symptoms: in the emergency department the symptoms are unchanged despite home interventions. Patient admits to injecting methamphetamine 2 days ago. Historical: - Allergies: 18:08 PENICILLINS; bp - Home Meds: 18:08 None [Active]; bp - PMHx: 18:08 Hypertension; Hypothyroidism; bp - Immunization history:: Adult Immunizations unknown. - Social history:: Smoking status: Patient uses tobacco products, unknown amount Patient uses street drugs, Methamphetamine (Meth). - Ebola Screening: : No symptoms or risks identified at this time. ROS: 18:45 Constitutional: Positive for poor PO intake, Negative for body aches, chills, fever. cp 18:45 Eyes: Negative for injury, pain, redness, and discharge. cp 18:45 ENT: Negative for drainage from ear(s), ear pain, sore throat, difficulty swallowing, difficulty handling secretions. 18:45 Neck: Negative for pain with movement, pain at rest, stiffness, tenderness. 18:45 Cardiovascular: Negative for chest pain, edema, palpitations. 18:45 Respiratory: Negative for cough, shortness of breath, wheezing. 18:45 Abdomen/GI: Positive for abdominal pain, nausea, vomiting, diarrhea, anorexia, of the epigastric area, Negative for constipation, hematemesis, black/tarry stool, rectal bleeding. 18:45 Back: Negative for pain at rest, pain with movement. 18:45 : Negative for urinary symptoms, testicular pain 18:45 Skin: Negative for cellulitis, rash. 18:45 Neuro: Positive for headache, weakness, Negative for altered mental status, dizziness, loss of consciousness, syncope. 18:45 All other systems are negative. Exam: 18:08 ECG was reviewed by the Attending Physician. cp 18:35 ECG was reviewed by the Attending Physician. cp 18:50 Constitutional: The patient appears in no acute distress, alert, awake, cp non-diaphoretic, non-toxic, well developed, well nourished. 18:50 Head/Face: Normocephalic, atraumatic. cp 18:50 Eyes: Periorbital structures: appear normal, Pupils: equal, round, and reactive to cp light and accomodation, Extraocular movements: intact throughout, Conjunctiva: normal, no exudate, no injection, Sclera: no appreciated abnormality, Lids and lashes: appear normal, bilaterally. 18:50 ENT: External ear(s): are unremarkable, Ear canal(s): are normal, clear, TM's: are normal, no evidence of bulging, no erythema, Nose: is normal, Mouth: Lips: dry, Oral mucosa: pink and intact, dry, Posterior pharynx: is normal, airway is patent, no erythema, no exudate, Voice: is normal. 18:50 Neck: ROM/movement: is normal, is supple, without pain, no range of motions cp limitations, no meningismus, no nuchal rigidity. 18:50 Chest/axilla: Inspection: normal, Palpation: is normal, no crepitus, no tenderness. 18:50 Cardiovascular: Rate: normal, Rhythm: regular, Heart sounds: murmur, not appreciated, rub, not appreciated, gallop, not appreciated, Edema: is not appreciated, JVD: is not appreciated. 18:50 Respiratory: the patient does not display signs of respiratory distress, Respirations: normal, no use of accessory muscles, no retractions, no splinting, no tachypnea, labored breathing, is not present, Breath sounds: are clear throughout, no decreased breath sounds, no stridor, no wheezing. 18:50 Abdomen/GI: Inspection: abdomen appears normal, Bowel sounds: active, all quadrants, Palpation: soft, in all quadrants, mild abdominal tenderness, in the epigastric area, rebound tenderness, is not appreciated, voluntary guarding, is not appreciated, involuntary guarding, is not appreciated. 18:50 Back: pain, is absent, ROM is normal. 18:50 Skin: cellulitis, is not appreciated, no rash present. 18:50 Neuro: Orientation: to person, place \T\ time. Mentation: is normal, Motor: moves all fours, strength is normal. Vital Signs: 18:10 BP 90 / 49; Pulse 90; Resp 14; Temp 99.1; Pulse Ox 98% ; Weight 54.43 kg; bp 18:45 BP 84 / 59; Pulse 75; Resp 16; Pulse Ox 98% ; bp 19:54 BP 91 / 62; Pulse 79; Resp 17; Pulse Ox 100% on R/A; ca1 20:38 BP 88 / 68; Pulse 81; Resp 17 S; Temp 98.2(TE); Pulse Ox 100% on R/A; ca1 21:00 BP 89 / 69; Pulse 85; Resp 15; Pulse Ox 99% on R/A; jp3 21:41 BP 91 / 64; Pulse 82; Resp 15 S; Pulse Ox 100% on R/A; ca1 22:44 BP 103 / 71; Pulse 81; Resp 17 S; Pulse Ox 100% on R/A; ca1 18:10 ARRIVAL VITALS bp MDM: 18:11 Patient medically screened. esperanza 18:30 Differential diagnosis: gastritis, pancreatitis, viral gastroenteritis, cp gastroenteritis, sepsis, colitis, dehydration. 21:03 Data reviewed: vital signs, nurses notes, lab test result(s), EKG, radiologic studies, cp CT scan, plain films. Test interpretation: by ED physician or midlevel provider: ECG, plain radiologic studies. Physician consultation: Debby Mckeon MD was called at 21:00, was contacted at 21:00, regarding admission, patient's condition. 21:05 Response to treatment: improved. cp 05/21 18:21 Order name: Basic Metabolic Panel; Complete Time: 19:50 bp 05/21 18: Order name: CBC with Diff; Complete Time: 20:45 bp 05/21 19:19 Interpretation: Normal except: WBC 43.0; IONA% 90.5; LYM% 4.0; MNA 2.1; NEUT A 39.0. cp 05/21 18: Order name: LFT's; Complete Time: 19:50 bp 05/21 18:21 Order name: Magnesium; Complete Time: 19:50 bp 05/21 18:21 Order name: NT PRO-BNP; Complete Time: 19:50 bp 05/21 18:21 Order name: PT-INR; Complete Time: 19:16 bp 05/21 18:21 Order name: Troponin (emerg Dept Use Only); Complete Time: 19:50 bp 05/21 18:31 Order name: Lipase; Complete Time: 19:19 cp 05/21 19:19 Interpretation: Reviewed. 05/21 18:33 Order name: UDS; Complete Time: 20:39 cp 05/21 20:40 Interpretation: Normal except: METHAMPHETAMINE POSITIVE. 05/21 19:13 Order name: Procalcitonin; Complete Time: 20:39 cp 05/21 20:40 Interpretation: Abnormal: Procalcitonin 130.67. 05/21 19:13 Order name: Lactate; Complete Time: 20:39 cp 05/21 19:13 Order name: Blood Culture Adult (2) 05/21 20:43 Order name: Manual Differential [facility] 05/21 20:52 Order name: Urine Microscopic Only; Complete Time: 21:45 cp 05/21 21:45 Interpretation: Normal except: UWBC 5-10; SQEPI 5-10. 05/21 20:52 Order name: Urine Culture 05/21 20:52 Order name: Urine Dipstick--Ancillary (enter results) 05/21 20:52 Order name: Urine Microscopic Only 05/21 21:03 Order name: CPK 05/21 22:06 Order name: Lactate [facility] 05/21 22:08 Order name: CBC with Automated Diff ED[facility] 05/21 22:08 Order name: CBC with Automated Diff ED[facility] 05/21 22:08 Order name: Comprehensive Metabolic Panel [facility] 05/21 18:21 Order name: XRAY Chest (1 view); Complete Time: 19:50 bp 05/21 18:21 Order name: EKG; Complete Time: 18:22 bp 05/21 18:22 Order name: EKG; Complete Time: 18:23 cp 05/21 18:22 Order name: Cardiac monitoring; Complete Time: 18:27 cp 05/21 18:22 Order name: EKG - Nurse/Tech; Complete Time: 18:27 cp 05/21 18:22 Order name: IV Saline Lock; Complete Time: 18:55 cp 05/21 18:22 Order name: Labs collected and sent; Complete Time: 18:55 cp 05/21 18:22 Order name: O2 Per Protocol; Complete Time: 18:27 cp 05/21 18:22 Order name: O2 Sat Monitoring; Complete Time: 18:27 cp 05/21 18:31 Order name: IV; Complete Time: 18:54 cp 05/21 19:51 Order name: Abdomen ; Complete Time: 20:39 EDMS 05/21 20:52 Order name: CT Head Brain wo Cont cp 05/21 22:08 Order name: CONS Pharmacy Consult EDMS 05/21 22:08 Order name: NPO EDMS 05/21 22:08 Order name: Comprehensive Metabolic Panel ED[facility] 05/21 22:13 Order name: Abdomen Exam Complete EDMS EC:08 Rate is 84 beats/min. Rhythm is regular. [place] interval is normal. QRS interval is cp prolonged at 106 msec. QT interval is normal. Interpreted by me. Reviewed by me. 18:35 Rate is 82 beats/min. Rhythm is regular. [place] interval is normal. QRS interval is cp prolonged at 104 msec. QT interval is normal. Interpreted by me. Reviewed by me. Administered Medications: 18:45 Drug: NS 0.9% 1000 ml Route: IV; Rate: 1 bolus; Site: right antecubital; bp 20:07 Follow up: Response: No adverse reaction; IV Status: Completed infusion; IV Intake: ca1 1000ml 18:45 Drug: Zofran 4 mg Route: IVP; Site: right antecubital; bp 20:06 Follow up: Response: No adverse reaction ca1 18:45 Drug: Pepcid 20 mg Route: IVP; Site: right antecubital; bp 20:06 Follow up: Response: No adverse reaction ca1 18:45 Drug: NS 0.9% 1000 ml Route: IV; Rate: 1 bolus; Site: right antecubital; bp 20:06 Follow up: Urine output 250 ml; IV Status: Completed infusion; IV Intake: 1000ml ca1 19:23 Drug: NS 0.9% 1000 ml Route: IV; Rate: 1 bolus; Site: right antecubital; bp 20:30 Follow up: Response: No adverse reaction; IV Status: Completed infusion; IV Intake: ca1 1000ml 20:56 Drug: NS 0.9% 1000 ml Route: IV; Rate: 125 ml/hr; Site: right antecubital; ca1 21:55 Follow up: Response: No adverse reaction; IV Status: Infusion continued upon admission ca1 21:02 CANCELLED (Physician Discretion): cefOTAXime 2 grams IVPB once over 30 mins; (mix in cp 100 mL NS) 21:17 Drug: Cefepime 2 grams Route: IVPB; Rate: 200 ml/hr; Infused Over: 30 mins; Site: right ca1 antecubital; 21:53 Follow up: Response: No adverse reaction; IV Status: Completed infusion ca1 21:54 Drug: vancoMYCIN 1 grams Route: IVPB; Infused Over: 2 hrs; Site: right antecubital; ca1 21:56 Follow up: Response: No adverse reaction; IV Status: Infusion continued upon admission ca1 Disposition: 05/22 20:39 Co-signature as Attending Physician, Kris Echevarria MD I agree with the assessment and esperanza plan of care. Disposition: 05/21/19 21:47 Hospitalization ordered by Debby Mckeon for Inpatient Admission. Preliminary diagnosis are Other sepsis, Vomiting, unspecified, Diarrhea, unspecified. - Bed requested for Intensive Care Unit. - Status is Inpatient Admission. ca1 - Condition is Serious. - Problem is new. - Symptoms have improved. UTI on Admission? No Signatures: Dispatcher [employer] Kris Trinh MD MD cha Page, Corey, PA PA cp Garcia, Cindy, Marco Stahl RN, MD MD gs Peltier, Brian, RN RN bp Candice Houston RN RN ca1 Corrections: (The following items were deleted from the chart) 05/21 18:22 18:21 O2 Sat Monitoring ordered. bp bp 18:25 18:21 Oxygen Per Protocol ordered. bp bp 18:26 18:21 Cardiac monitoring ordered. bp bp 18:26 18:21 EKG - Nurse/Tech ordered. bp bp 18:26 18:21 IV Saline Lock ordered. bp bp 18:26 18:21 Labs collected and sent ordered. bp bp 18:59 18:23 BASIC METABOLIC PANEL+C.LAB.BRZ ordered. EDMS EDMS 18:59 18:23 CBC+H.LAB.BRZ ordered. EDMS EDMS 18:59 18:23 HEPATIC FUNCTION+C.LAB.BRZ ordered. EDMS EDMS 18:59 18:23 MAGNESIUM+C.LAB.BRZ ordered. EDVA EDMS 18:59 18:23 PROBNP+C.LAB.BRZ ordered. [facility] EDMS 19:00 18:23 PROTIME (+INR)+COAG.LAB.BRZ ordered. [facility] EDMS 19:00 18:23 TROPONIN (EMERG DEPT USE ONLY)+C.LAB.BRZ ordered. ED[facility] EDMS 19:00 18:23 CREATINE PHOSPHOKINASE+C.LAB.BRZ ordered. [facility] EDMS 19:19 19:19 Normal except: WBC 43.0; IONA% 90.5; LYM% 4.0. cp cp 19:19 19:19 Normal except: WBC 43.0; IONA% 90.5; LYM% 4.0; MNA 2.1. cp cp 19:50 19:19 Abdomen Pelvis W Con+CT.RAD.BRZ ordered. EDVA EDMS 21:02 21:01 cefOTAXime 2 grams IVPB once over 30 mins; (mix in 100 mL NS) ordered. cp cp 22:51 21:47 Hospitalization Ordered by Debby Mckeon MD for Inpatient Admission. Preliminary cg diagnosis is Other sepsis; Vomiting, unspecified; Diarrhea, unspecified. Bed requested for Intensive Care Unit. Status is Inpatient Admission. Condition is Serious. Problem is new. Symptoms have improved. UTI on Admission? No. cp 23:21 22:51 05/21/2019 21:47 Hospitalization Ordered by Debby Mckeon MD for Inpatient ca1 Admission. Preliminary diagnosis is Other sepsis; Vomiting, unspecified; Diarrhea, unspecified. Bed requested for Intensive Care Unit. Status is Inpatient Admission. Condition is Serious. Problem is new. Symptoms have improved. UTI on Admission? No. cg
--- NOTE | 2019-05-21 21:48 | ER ---
Nurse's Notes [facility] Name: Karson Gant Age: 34 yrs Sex: Male : 1985 Arrival Date: 05/21/2019 Time: 18:06 Bed 25 Private MD: Diagnosis: Other sepsis;Vomiting, unspecified;Diarrhea, unspecified Presentation: 05/21 18:07 Presenting complaint: EMS states: METH USE, HEAT EXPOSURE, GENERALIZED WEAKNESS. bp Transition of care: patient was not received from another setting of care. Onset of symptoms is unknown. Risk Assessment: Do you want to hurt yourself or someone else? Patient reports no desire to harm self or others. Initial Sepsis Screen: Does the patient meet any 2 criteria? No. Patient's initial sepsis screen is negative. Does the patient have a suspected source of infection? No. Patient's initial sepsis screen is negative. Care prior to arrival: Glucose check: 76. 18:07 Method Of Arrival: EMS: [facility] bp 18:07 Acuity: BASIL 3 bp Triage Assessment: 18:08 General: Appears in no apparent distress. comfortable, unkempt, Behavior is bp cooperative, appropriate for age, drowsy. Pain: Denies pain. EENT: No deficits noted. Neuro: Level of Consciousness is alert, obeys commands, lethargic, Oriented to person, place, time, situation, Appropriate for age. Cardiovascular: No deficits noted. Respiratory: No deficits noted. GI: No signs and/or symptoms were reported involving the gastrointestinal system. : No signs and/or symptoms were reported regarding the genitourinary system. Derm: No deficits noted. Musculoskeletal: No deficits noted. Historical: - Allergies: 18:08 PENICILLINS; bp - Home Meds: 18:08 None [Active]; bp - PMHx: 18:08 Hypertension; Hypothyroidism; bp - Immunization history:: Adult Immunizations unknown. - Social history:: Smoking status: Patient uses tobacco products, unknown amount Patient uses street drugs, Methamphetamine (Meth). - Ebola Screening: : No symptoms or risks identified at this time. Screenin:11 Abuse screen: Denies threats or abuse. Denies injuries from another. Nutritional bp screening: No deficits noted. Tuberculosis screening: No symptoms or risk factors identified. Fall Risk None identified. Assessment: 18:11 General: SEE TRIAGE NOTE. bp 19:12 Reassessment:. ak1 19:54 Reassessment: Patient appears in no apparent distress at this time. Patient and/or ca1 family updated on plan of care and expected duration. Pain level reassessed. Patient is alert, oriented x 3, equal unlabored respirations, skin warm/dry/pink. Pt back from CT scan. 20:50 Reassessment: Patient appears in no apparent distress at this time. Patient and/or ca1 family updated on plan of care and expected duration. Pain level reassessed. Patient is alert, oriented x 3, equal unlabored respirations, skin warm/dry/pink. 21:40 Reassessment: Patient appears in no apparent distress at this time. Patient and/or ca1 family updated on plan of care and expected duration. Pain level reassessed. Patient is alert, oriented x 3, equal unlabored respirations, skin warm/dry/pink. 22:44 Reassessment: Patient appears in no apparent distress at this time. Patient and/or ca1 family updated on plan of care and expected duration. Pain level reassessed. Patient is alert, oriented x 3, equal unlabored respirations, skin warm/dry/pink. Vital Signs: 18:10 BP 90 / 49; Pulse 90; Resp 14; Temp 99.1; Pulse Ox 98% ; Weight 54.43 kg; bp 18:45 BP 84 / 59; Pulse 75; Resp 16; Pulse Ox 98% ; bp 19:54 BP 91 / 62; Pulse 79; Resp 17; Pulse Ox 100% on R/A; ca1 20:38 BP 88 / 68; Pulse 81; Resp 17 S; Temp 98.2(TE); Pulse Ox 100% on R/A; ca1 21:00 BP 89 / 69; Pulse 85; Resp 15; Pulse Ox 99% on R/A; jp3 21:41 BP 91 / 64; Pulse 82; Resp 15 S; Pulse Ox 100% on R/A; ca1 22:44 BP 103 / 71; Pulse 81; Resp 17 S; Pulse Ox 100% on R/A; ca1 18:10 ARRIVAL VITALS bp ED Course: 18:00 Inserted saline lock: 18 gauge in right antecubital area, using aseptic technique. ca1 ,using aseptic technique. by SALUD Watkins Blood collected. 18:06 Patient arrived in ED. bp 18:08 Triage completed. bp 18:10 Kris Andre PA is PHCP. cp 18:10 Kris Echevarria MD is Attending Physician. cp 18:10 Arm band placed on. bp 18:11 Patient has correct armband on for positive identification. Bed in low position. Call bp light in reach. Side rails up X2. 18:20 Roland Mukherjee RN is Primary Nurse. bp 18:41 XRAY Chest (1 view) In Process Unspecified. EDMS 19:00 Inserted saline lock: 20 gauge in right forearm, using aseptic technique. ,using ca1 aseptic technique. by SALUD Watkins Blood collected. 19:12 Notified Nurse Practitioner and/or Physician Freight Handler of a critical lab result(s), WBC ak1 43.0 C. Page PA informed. 19:24 Radiology exam delayed due to lab results not completed at this time. (BUN/Creatinine). nj 19:51 Abdomen In Process Unspecified. EDMS 21:20 CT Head Brain wo Cont In Process Unspecified. EDMS 21:45 Debby Mckeon MD is Hospitalizing Provider. cp 21:55 No provider procedures requiring assistance completed. Patient admitted, IV remains in ca1 place. Administered Medications: 18:45 Drug: NS 0.9% 1000 ml Route: IV; Rate: 1 bolus; Site: right antecubital; bp 20:07 Follow up: Response: No adverse reaction; IV Status: Completed infusion; IV Intake: ca1 1000ml 18:45 Drug: Zofran 4 mg Route: IVP; Site: right antecubital; bp 20:06 Follow up: Response: No adverse reaction ca1 18:45 Drug: Pepcid 20 mg Route: IVP; Site: right antecubital; bp 20:06 Follow up: Response: No adverse reaction ca1 18:45 Drug: NS 0.9% 1000 ml Route: IV; Rate: 1 bolus; Site: right antecubital; bp 20:06 Follow up: Urine output 250 ml; IV Status: Completed infusion; IV Intake: 1000ml ca1 19:23 Drug: NS 0.9% 1000 ml Route: IV; Rate: 1 bolus; Site: right antecubital; bp 20:30 Follow up: Response: No adverse reaction; IV Status: Completed infusion; IV Intake: ca1 1000ml 20:56 Drug: NS 0.9% 1000 ml Route: IV; Rate: 125 ml/hr; Site: right antecubital; ca1 21:55 Follow up: Response: No adverse reaction; IV Status: Infusion continued upon admission ca1 21:02 CANCELLED (Physician Discretion): cefOTAXime 2 grams IVPB once over 30 mins; (mix in cp 100 mL NS) 21:17 Drug: Cefepime 2 grams Route: IVPB; Rate: 200 ml/hr; Infused Over: 30 mins; Site: right ca1 antecubital; 21:53 Follow up: Response: No adverse reaction; IV Status: Completed infusion ca1 21:54 Drug: vancoMYCIN 1 grams Route: IVPB; Infused Over: 2 hrs; Site: right antecubital; ca1 21:56 Follow up: Response: No adverse reaction; IV Status: Infusion continued upon admission ca1 Intake: 20:06 IV: 1000ml; Total: 1000ml. ca1 20:07 IV: 1000ml; Total: 2000ml. ca1 20:30 IV: 1000ml; Total: 3000ml. ca1 Output: 20:06 Urine: 250ml; Total: 250ml. ca1 Outcome: 21:47 Decision to Hospitalize by Provider. cp 23:12 Admitted to ICU accompanied by nurse, via stretcher, room 8, on monitor, with chart, ca1 Report called to Zenia Sprague RN 23:12 Condition: stable 23:12 Instructed on the need for admit. 23:21 Patient left the ED. ca1 Signatures: Dispatcher [employer] EDMS Margoth Geiger, RN RN ak1 Kris Andre PA PA cp Jordan, Nathan nj Peltier, Brian, RN RN bp Pisarski, Jacob jp3 Candice Houston RN RN ca1
[2019-05-21] MEDS ORDERED: MORPHINE 4 MG/ML SYR IV PRN (22:02)
[2019-05-21] MEDS ORDERED: ONDANSETRON 4 MG/2 ML VIAL IV PRN (22:02)
[2019-05-21 22:16] LABS: Urine Blood NEGATIVE (NEG); Urine Glucose NEGATIVE (NEG); Urine Protein NEGATIVE (NEG); Urine pH 5.5 (5.0-7.0)
[2019-05-21] MEDS ORDERED: Levofloxacin500mg IV 500 MG/100 ML BAG IV SCH (23:00)
[2019-05-21] MEDS: ACETAMINOPHEN 500 MG TAB PO PRN (23:56)
[2019-05-21] MEDS: METRONIDAZOLE 500mg IVPB 500 MG/100 ML BAG IV SCH (23:56)
[2019-05-21] MEDS: NA CHLORIDE 0.9% 1,000 ML IV SCH (23:56)
[2019-05-22] MEDS ORDERED: NA CHLORIDE 0.9% 1,000 ML IV ONE ×2 (00:23→05:22)
[2019-05-22] MEDS ORDERED: Magnesium Sulfate 2gm IVPB 2 G/50 ML BAG IV ONE (00:23)
[2019-05-22] MEDS ORDERED: HYDROCORTISONE SUC 100 MG INJ IV ONE (00:24)
[2019-05-22 00:41] VITALS: BMI 23.1
[2019-05-22] MEDS: METRONIDAZOLE 500mg IVPB 500 MG/100 ML BAG IV SCH ×3 (05:06→17:17)
[2019-05-22 05:16] LABS: Absolute Lymphocytes (CBC) 1.5 K/uL (0.7-4.9); Basophils % 0.2 % (0-1.3); MPV 10.3 fL (7.6-11.3); RBC Red Blood Cell Count 3.87 M/uL (4.33-5.43)
[2019-05-22 05:30] LABS: Albumin 2.5 g/dL (3.4-5.0); Bilirubin Total 0.4 mg/dL (0.2-1.0); Magnesium 2.6 mg/dL (1.8-2.4); Protein, Total 5.5 g/dL (6.4-8.2)
[2019-05-22] MEDS ORDERED: VANCOMYCIN 1.25 GM in NA CHLORIDE 0.9% 250 ML IVPB SCH (09:00)
[2019-05-22] MEDS: ACETAMINOPHEN 500 MG TAB PO PRN (09:08)
[2019-05-22] MEDS ORDERED: VANCOMYCIN 1 GM in NA CHLORIDE 0.9% 250 ML IVPB SCH (10:00)
--- NOTE | 2019-05-22 10:02 | RAD REPORT ---
EXAM DESCRIPTION: CT - Head Brain Wo Cont - 05/21/2019 11:59 pm CLINICAL HISTORY: 34-year-old male with headache and generalized weakness with nausea. COMPARISON: None. TECHNIQUE: CT brain without contrast. This exam was performed according to our departmental dose opt imization program which includes use of automated exposure control, adjustment of the mA and/or kV ac cording to patient size and/or use of iterative reconstruction technique. FINDINGS: The ventricles, sulci, and cisterns are within normal limits. The tierney-white matter diff erentiation is preserved. There is no mass effect, midline shift, intra- or extra-axial fluid colle ction/acute hemorrhage. The osseous structures are unremarkable. The paranasal sinuses and mastoi d air cells are clear. Chronic appearing right-sided lamina papyracea fracture. IMPRESSION: No acute intracranial abnormalities. Electronically signed by: Christiana Vargas MD 05/21/2019 9:47 PM CDT Due to temporary technical issues with the PACS/Fluency reporting system, reports are being signed by the in house radiologist as a courtesy to ensure prompt reporting. The interpreting radiologist is f ully responsible for the content of the report.
--- NOTE | 2019-05-22 11:22 | EKG ---
Test Date: 2019-05-21 Test Time: 18:26:39 Certified Real Estate Appraiser: EDIN MEASUREMENT RESULTS: Intervals: Rate: 82 GA: 112 QRSD: 104 QT: 388 QTc: 453 [place]: P: 64 GA: 112 QRS: 70 T: 49 INTERPRETIVE STATEMENTS: Normal sinus rhythm Moderate voltage criteria for LVH, may be normal variant Borderline ECG Compared to ECG 07/25/2018 11:37:31 Left ventricular hypertrophy now present Electronically Signed On 05-22-19 11:19:26 CDT by Edmund Rios
--- NOTE | 2019-05-22 11:22 | EKG ---
Test Date: 2019-05-21 Test Time: 18:04:02 Road Freight Conductor: RV MEASUREMENT RESULTS: Intervals: Rate: 84 SD: 118 QRSD: 106 QT: 380 QTc: 449 [place]: P: 69 SD: 118 QRS: 68 T: 51 INTERPRETIVE STATEMENTS: Normal sinus rhythm Possible Left atrial enlargement RSR' or QR pattern in V1 suggests right ventricular conduction delay Borderline ECG Compared to ECG 07/25/2018 11:37:31 RSR' in V1 or V2 now present Electronically Signed On 05-22-19 11:19:28 CDT by Edmund Rios
--- NOTE | 2019-05-22 12:02 | ECHO ---
HEIGHT: 5 ft 6 in WEIGHT: 143 lb 3.2 oz DATE OF STUDY: 04/21/[address]: Debby Mckeon MD 2-DIMENSIONAL: YES M.MODE: YES DOPPLER: YES COLOR FLOW: YES TDS: NO PORTABLE: NO DEFINITY: NO BUBBLE STUDY: NO DIAGNOSIS: SEPTIC/ ENDOCARDITIS CARDIAC HISTORY: CATHERIZATION: NO SURGERY: NO PROSTHETIC VALVE: NO PACEMAKER: NO MEASUREMENTS (cm) DIASTOLIC (NORMALS) SYSTOLIC (NORMALS) IVSd 0.7 (0.6-1.2) LA Diam 3.4 (1.9-4.0) LVEF 44% LVIDd 5.5 (3.5-5.7) LVIDs 4.3 (2.0-3.5) %FS 22% LVPWd 0.7 (0.6-1.2) Ao Diam 2.9 (2.0-3.7) 2 DIMENSIONAL ASSESSMENT: RIGHT ATRIUM: NORMAL LEFT ATRIUM: NORMAL RIGHT VENTRICLE: NORMAL LEFT VENTRICLE: NORMAL TRICUSPID VALVE: NORMAL MITRAL VALVE: NORMAL PULMONIC VALVE: NORMAL AORTIC VALVE: NORMAL PERICARDIAL EFFUSION: NONE AORTIC ROOT: NORMAL LEFT VENTRICULAR WALL MOTION: MILD GLOBAL HYPOKENISIS. DOPPLER/COLOR FLOW: MILD TRICUSPID REGURGITATION. COMMENTS: MILD GLOBAL HYPOKINESIS. EJECTION FRACTION 45%. MILD TRICUSPID REGURGITATION. NO VEGETATION. TECHNOLOGIST: JESUS QUIJANO
[2019-05-22] MEDS: NA CHLORIDE 0.9% 1,000 ML IV SCH ×4 (12:20→23:00)
--- NOTE | 2019-05-22 14:14 | P.PN ---
Subjective Date of Service: 05/22/19 Subjective: Tolerating diet, Improving, Working w/ PT, Doing well Review of Systems 10-point ROS is otherwise unremarkable Physical Examination - Vital Signs Temperature: 97.6 F Blood Pressure: 104/72 Pulse: 58 Respirations: 16 Pulse Ox (%): 100 - Physical Exam General: Alert, In no apparent distress HEENT: Atraumatic, PERRLA, EOMI Neck: Supple, JVD not distended Respiratory: Clear to auscultation bilaterally, Normal air movement Cardiovascular: Regular rate/rhythm, Normal S1 S2 Gastrointestinal: Normal bowel sounds, No tenderness Musculoskeletal: No tenderness Integumentary: No rashes Neurological: Normal speech, Normal tone, Normal affect Lymphatics: No axilla or inguinal lymphadenopathy - Studies Laboratory Data (last 24 hrs) 05/21/19 18:45: Lipase 38 L 05/21/19 18:45: PT 15.8 H, INR 1.35 05/21/19 18:45: WBC 43.0 H*, Hgb 13.7, Hct 41.9, Plt Count 212 05/21/19 18:45: Sodium 137, Potassium 4.1, BUN 29 H, Creatinine 1.64 H, Glucose 85, Magnesium 1.7 L D, Total Bilirubin 0.6, AST 65 H, ALT 100 H, Alkaline Phosphatase 133 H 05/21/19 18:22: PT Cancelled, INR Cancelled 05/21/19 18:22: WBC Cancelled, Hgb Cancelled, Hct Cancelled, Plt Count Cancelled 05/21/19 18:22: Sodium Cancelled, Potassium Cancelled, BUN Cancelled, Creatinine Cancelled, Glucose Cancelled, Magnesium Cancelled, Total Bilirubin Cancelled, AST Cancelled, ALT Cancelled, Alkaline Phosphatase Cancelled Medications List Reviewed: Yes Assessment And Plan - Current Problems (Diagnosis) (1) Heat stroke Current Visit: Yes Status: Acute Plan: Patient with heat stroke with prolonged exposure to the heat -CK within normal limits -BUN and creatinine within normal limits at this time -elevated white count along with pro calcitonin -will monitor closely here in the hospital -currently alert and oriented x3 -IV fluids increased to 125 mL an hr Qualifiers: Encounter type: initial encounter Qualified Code(s): T67.0XXA - Heatstroke and sunstroke, initial encounter (2) Diarrhea Current Visit: Yes Status: Acute Plan: Patient with diarrhea on presentation along with nausea vomiting most likely secondary to heat stroke -however will rule out any infectious etiology -abdominal CT negative for any acute abnormality -stool cultures pending at this time -continue with IV Levaquin and Flagyl -pending abdominal ultrasound Qualifiers: Diarrhea type: presumed infectious Qualified Code(s): R19.7 - Diarrhea, unspecified (3) Methamphetamine abuse Current Visit: Yes Status: Chronic - Plan Pending clinical improvement at this time Discharge Plan: Home Plan to discharge in: Greater than 2 days - Code Status/Comfort Care Code Status Assessed: Yes Critical Care: Yes
--- NOTE | 2019-05-22 15:44 | RAD REPORT ---
EXAM DESCRIPTION: US - Abdomen Exam Complete - 05/22/2019 3:27 pm CLINICAL HISTORY: Abdominal pain. Abd pain COMPARISON: Abdomen Pelvis Wo Contrast dated 05/21/2019; Head Brain Wo Cont dated 05/21/2019 FINDINGS: Liver size is prominent with the right lobe of the liver measuring 18 cm in anterior-poste rior dimension. No focal liver lesions or intrahepatic biliary dilatation is seen. Very small amount of fluid is seen the perihepatic space. The gallbladder demonstrates no gallstones, pericholecystic fluid or gallbladder wall thickening. Co mmon bile duct is normal in caliber measuring 3 mm. Both kidneys are normal in size, shape and echotexture. No hydronephrosis, focal lesion of concern or perinephric fluid. Small benign right renal cyst. The spleen is normal in size measuring 10 x 3 cm. The pancreas and aorta are obscured by bowel gas. The visualized aspects of the IVC are grossly normal. IMPRESSION: The liver appears mildly prominent in size.
[2019-05-22] MEDS: PIPER/TAZO/NS 3.375gm 3.375 GM/100 ML BAG IVPB SCH (18:07)
--- NOTE | 2019-05-22 20:13 | P.HP ---
Certification for Inpatient Patient admitted to: Inpatient With expected LOS: >2 Midnights Patient will require the following post-hospital care: None Practitioner: I am a practitioner with admitting privileges, knowledge of patient current condition, hospital course, and medical plan of care. Services: Services provided to patient in accordance with Admission requirements found in Title 42 Section 412.3 of the Code of Federal Regulations Patient History Date of Service: 05/21/19 Reason for admission: Septic shock History of Present Illness: Patient is a 34-year-old gentleman who presents to the hospital with intractable nausea and vomiting with persistent diarrhea. This has been going on for last 24 hours. Patient with no significant past medical history. He does have a history of IV drug abuse. He did and fed it means intravenously. He says the needle was dirty and he did really clean himself. There is a concern for sepsis from the intravenous drug use and also possibly from the gastroenteritis. Patient will be admitted to the hospital for further evaluation. Patient has been having nausea and vomiting along with diarrhea for the last 24 hours. He does not have any sick contacts. He says that he has gotten really dehydrated and lightheaded. In the emergency room he was given 3 L of IV fluids and his blood pressure only went up to a 80/50. Normally he states his blood pressure is 110/70. He will be admitted for further evaluation in the intensive care unit. Continue IV fluid boluses along with IV antibiotics. We will now for sepsis and also check echocardiogram. Blood cultures are pending as well. Patient will need inpatient hospitalization. Allergies Penicillins Allergy (Unknown, Verified 05/22/19 00:41) Shortness of breath Home Medications: NK [No Home Meds] 07/18/14 - Past Medical/Surgical History Has patient received pneumonia vaccine in the past: No Diabetic: No -: HTN -: hypothyroidism -: tear duct sx - Family History Father Family History: Reviewed- Non-Contributory - Social History Smoking Status: Current every day smoker Alcohol use: Yes CD- Drugs: Yes Caffeine use: Yes Place of Residence: Homeless Review of Systems 10-point ROS is otherwise unremarkable Physical Examination - Vital Signs Temperature: 98.4 F Blood Pressure: 114/82 Pulse: 55 Respirations: 18 Pulse Ox (%): 99 - Physical Exam General: Alert, In no apparent distress, Oriented x3 HEENT: Atraumatic, PERRLA, Mucous membr. moist/pink, EOMI, Sclerae nonicteric Neck: Supple, 2+ carotid pulse no bruit, No LAD, Without JVD or thyroid abnormality Respiratory: Clear to auscultation bilaterally, Normal air movement Cardiovascular: Regular rate/rhythm, Normal S1 S2, No murmurs Gastrointestinal: Normal bowel sounds, Soft and benign, Non-distended, Tenderness Musculoskeletal: No clubbing, No swelling, No tenderness Integumentary: No rashes Neurological: Normal gait, Normal speech, Normal strength at 5/5 x4 extr, Normal tone, Sensation intact, Cranial nerves 3-12 intact, Normal affect Lymphatics: No axilla or inguinal lymphadenopathy - Studies Laboratory Data (last 24 hrs) 05/21/19 18:45: WBC 43.0 H*, Hgb 13.7, Hct 41.9, Plt Count 212 Assessment & Plan - Problems (Diagnosis) (1) 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 Aggressive IV hydration 2. Aggressive IV antibiotics 3. Echocardiogram 4. Abdominal ultrasound 5. Blood cultures 6. Stool cultures 7. Procalcitonin and lactate along with white blood cell count repeat 8. GI and DVT prophylaxis Discharge Plan: Home Plan to discharge in: Greater than 2 days - Advance Directives Does patient have a Living Will: No Does patient have a Durable POA for Healthcare: No - Code Status/Comfort Care Code Status Assessed: Yes Code Status: Full Code Critical Care: Yes Time Spent Managing PTS Care (In Minutes): 45
[2019-05-22] MEDS: VANCOMYCIN 1.25 GM in NA CHLORIDE 0.9% 250 ML IVPB SCH (20:23)
[2019-05-23] MEDS: METRONIDAZOLE 500mg IVPB 500 MG/100 ML BAG IV SCH ×2 (00:45→05:36)
[2019-05-23] MEDS: PIPER/TAZO/NS 3.375gm 3.375 GM/100 ML BAG IVPB SCH ×2 (01:20→05:35)
[2019-05-23 06:29] LABS: Absolute Lymphocytes (CBC) 4.4 K/uL (0.7-4.9); Basophils % 0.3 % (0-1.3); Hematocrit 38.1 % (39.6-49.0); Lymphocytes % 14.7 % (15.3-44.8); MPV 10.9 fL (7.6-11.3); RBC Red Blood Cell Count 4.13 M/uL (4.33-5.43)
[2019-05-23 06:41] LABS: Albumin 2.3 g/dL (3.4-5.0); Bilirubin Total 0.3 mg/dL (0.2-1.0); Magnesium 1.8 mg/dL (1.8-2.4); Phosphorus 2.2 mg/dL (2.5-4.9); Potassium 3.9 mmol/L (3.5-5.1); Protein, Total 5.4 g/dL (6.4-8.2)
[2019-05-23] MEDS: ACETAMINOPHEN 500 MG TAB PO PRN (07:10)
[2019-05-23] MEDS: NA CHLORIDE 0.9% 1,000 ML IV SCH (07:17)
[2019-05-23] MEDS ORDERED: HYDROCODONE/APAP 10/325 TAB PO ONE (07:23)
[2019-05-23 08:33] LABS: Blood Morphology Comment NOT SEEN (NOT SEEN); Platelet Estimate ADEQ
[2019-05-23] MEDS: VANCOMYCIN 1.25 GM in NA CHLORIDE 0.9% 250 ML IVPB SCH ×2 (09:26→20:58)
--- NOTE | 2019-05-23 11:29 | P.PN ---
Subjective Date of Service: 05/23/19 Chief Complaint: Septic shock Patient seen and examined at bedside with RN. Chart reviewed. Case discussed with patient at bedside. This morning patient has no complaints to offer. Feels much better than before. Review of Systems 10-point ROS is otherwise unremarkable Physical Examination - Vital Signs Temperature: 98.5 F Blood Pressure: 116/87 Pulse: 58 Respirations: 16 Pulse Ox (%): 100 - Physical Exam General: Alert, In no apparent distress HEENT: Atraumatic, PERRLA, EOMI Neck: Supple, JVD not distended Respiratory: Clear to auscultation bilaterally, Normal air movement Cardiovascular: Regular rate/rhythm, Normal S1 S2 Gastrointestinal: Normal bowel sounds, No tenderness Musculoskeletal: No tenderness Integumentary: No rashes Neurological: Normal speech, Normal tone, Normal affect Lymphatics: No axilla or inguinal lymphadenopathy - Studies Medications List Reviewed: Yes Assessment And Plan - Current Problems (Diagnosis) (1) Bacteremia Current Visit: Yes Status: Acute Plan: Patient blood culture positive for Gram positive rods -currently on IV vancomycin will continue that here in the hospital until sensitivities are back -discontinue Flagyl and Zosyn at this time (2) Heat stroke Current Visit: Yes Status: Acute Plan: Patient with heat stroke with prolonged exposure to the heat. Resolved now -CK within normal limits -BUN and creatinine within normal limits at this time -elevated white count along with pro calcitonin -will monitor closely here in the hospital -currently alert and oriented x3 Qualifiers: Encounter type: initial encounter Qualified Code(s): T67.0XXA - Heatstroke and sunstroke, initial encounter (3) Diarrhea Current Visit: Yes Status: Resolved Plan: Patient with diarrhea on presentation along with nausea vomiting most likely secondary to heat stroke -however will rule out any infectious etiology -abdominal CT negative for any acute abnormality -stool cultures negative at this time -Dc Levaquin and Flagyl at this time -abdominal ultrasound negative for acute abnormality Qualifiers: Diarrhea type: presumed infectious Qualified Code(s): R19.7 - Diarrhea, unspecified (4) Methamphetamine abuse Current Visit: Yes Status: Chronic - Plan Pending clinical improvement at this time Discharge Plan: Home Plan to discharge in: Greater than 2 days - Code Status/Comfort Care Code Status Assessed: Yes Critical Care: No
[2019-05-23 15:50] VITALS: O2SAT 99
[2019-05-24] MEDS: VANCOMYCIN 1.25 GM in NA CHLORIDE 0.9% 250 ML IVPB SCH ×2 (09:22→20:52)
--- NOTE | 2019-05-24 10:35 | P.PN ---
Subjective Date of Service: 05/24/19 Chief Complaint: Septic shock Patient seen and examined at bedside with RN. Chart reviewed. Case discussed with patient at bedside. This morning patient has no complaints to offer. Feels much better than before. Review of Systems 10-point ROS is otherwise unremarkable Physical Examination - Vital Signs Temperature: 98.5 F Blood Pressure: 121/80 Pulse: 62 Respirations: 16 Pulse Ox (%): 97 - Physical Exam General: Alert, In no apparent distress HEENT: Atraumatic, PERRLA, EOMI Neck: Supple, JVD not distended Respiratory: Clear to auscultation bilaterally, Normal air movement Cardiovascular: Regular rate/rhythm, Normal S1 S2 Gastrointestinal: Normal bowel sounds, No tenderness Musculoskeletal: No tenderness Integumentary: No rashes Neurological: Normal speech, Normal tone, Normal affect Lymphatics: No axilla or inguinal lymphadenopathy - Studies Microbiology Data (last 24 hrs): 05/21/19 20:00 Clean Catch Urine [place] Count - Final <10,000 CFU/ML. 05/21/19 20:00 Clean Catch Urine - Final MIXED DELILAH. Medications List Reviewed: Yes Assessment And Plan - Current Problems (Diagnosis) (1) Bacteremia Current Visit: Yes Status: Acute Plan: Patient blood culture positive for Gram positive rods -currently on IV vancomycin will continue that here in the hospital until sensitivities are back -discontinue Flagyl and Zosyn at this time (2) Heat stroke Current Visit: Yes Status: Acute Plan: Patient with heat stroke with prolonged exposure to the heat. Resolved now -CK within normal limits -BUN and creatinine within normal limits now -elevated white count along with pro calcitonin -Repeat lab work today -currently alert and oriented x3 Qualifiers: Encounter type: initial encounter Qualified Code(s): T67.0XXA - Heatstroke and sunstroke, initial encounter (3) Diarrhea Current Visit: Yes Status: Resolved Plan: Patient with diarrhea on presentation along with nausea vomiting most likely secondary to heat stroke -abdominal CT negative for any acute abnormality -stool cultures negative at this time -Dc Levaquin and Flagyl at this time -abdominal ultrasound negative for acute abnormality Qualifiers: Diarrhea type: presumed infectious Qualified Code(s): R19.7 - Diarrhea, unspecified (4) Methamphetamine abuse Current Visit: Yes Status: Chronic - Plan Pending Microbiology culture final Results.
[2019-05-24 11:00] LABS: Absolute Lymphocytes (CBC) 4.7 K/uL (0.7-4.9); Basophils % 0.6 % (0-1.3); Hematocrit 41.8 % (39.6-49.0); Lymphocytes % 20.1 % (15.3-44.8); MPV 9.7 fL (7.6-11.3); RBC Red Blood Cell Count 4.52 M/uL (4.33-5.43)
[2019-05-24 11:10] LABS: Albumin 2.5 g/dL (3.4-5.0); Bilirubin Total 0.2 mg/dL (0.2-1.0); Potassium 3.9 mmol/L (3.5-5.1); Protein, Total 5.5 g/dL (6.4-8.2)
[2019-05-24] MEDS: ACETAMINOPHEN 500 MG TAB PO PRN (20:59)
[2019-05-25 06:07] LABS: Absolute Lymphocytes (CBC) 4.7 K/uL (0.7-4.9); Basophils % 0.7 % (0-1.3); Hematocrit 40.8 % (39.6-49.0); Lymphocytes % 24.1 % (15.3-44.8); MPV 9.8 fL (7.6-11.3); RBC Red Blood Cell Count 4.45 M/uL (4.33-5.43)
[2019-05-25 06:17] LABS: ALT/SGPT 57 U/L (12-78); AST/SGOT 26 U/L (15-37); Albumin 2.5 g/dL (3.4-5.0); Alkaline Phosphatase 174 U/L (45-117); BUN Blood Urea Nitrogen 9 mg/dL (7-18); Bicarbonate 28 mmol/L (21-32); Bilirubin Total 0.3 mg/dL (0.2-1.0); Glucose Level 110 mg/dL (74-106); Potassium 3.6 mmol/L (3.5-5.1); Protein, Total 5.7 g/dL (6.4-8.2); Sodium Level 144 mmol/L (136-145)
[2019-05-25] MEDS: VANCOMYCIN 1.25 GM in NA CHLORIDE 0.9% 250 ML IVPB SCH ×2 (09:00→10:10)
[2019-05-25 09:40] VITALS: BP 132/79; TEMP 98.9
--- NOTE | 2019-05-25 11:22 | P.DS ---
Admission Date: 05/21/19 Discharge Date: 05/25/19 Disposition: ROUTINE DISCHARGE Discharge Condition: GOOD Reason for Admission: Septic shock - Problems (1) Bacteremia Status: Acute (2) Heat stroke Status: Acute Qualifiers: Encounter type: initial encounter Qualified Code(s): T67.0XXA - Heatstroke and sunstroke, initial encounter (3) Diarrhea Status: Resolved Qualifiers: Diarrhea type: presumed infectious Qualified Code(s): R19.7 - Diarrhea, unspecified (4) Methamphetamine abuse Status: Chronic Brief History of Present Illness: Patient is a 34-year-old gentleman who presents to the hospital with intractable nausea and vomiting with persistent diarrhea. This has been going on for last 24 hours. Patient with no significant past medical history. He does have a history of IV drug abuse. He did and fed it means intravenously. He says the needle was dirty and he did really clean himself. There is a concern for sepsis from the intravenous drug use and also possibly from the gastroenteritis. Patient will be admitted to the hospital for further evaluation. Patient has been having nausea and vomiting along with diarrhea for the last 24 hours. He does not have any sick contacts. He says that he has gotten really dehydrated and lightheaded. In the emergency room he was given 3 L of IV fluids and his blood pressure only went up to a 80/50. Normally he states his blood pressure is 110/70. He will be admitted for further evaluation in the intensive care unit. Continue IV fluid boluses along with IV antibiotics. We will now for sepsis and also check echocardiogram. Blood cultures are pending as well. Patient will need inpatient hospitalization. Hospital Course: Overall During hospital Stay patient remained stable. Pt was initially admitted to the hospital for sepsis. Pt stated he used a dirty needle for his IVDA. Pt also c/o of having N/V and diarrhea and stated he passed out in the hot room. Pt was started on IV fluids along with IV abx (Vanc/ Flagyl/Levaquin). Blood, stool and sputum culture was collected. Pt also had ECHO and ABD CT done. ABD CT was negative and ECHO was negative for any vegetations. Blood culture initially was growing Gram + rods. However final Results were consistent with Collection containment. Pt was then switched to PO levaquin. WBC declined and Pt remained stabled while here in the hospital. Pt thus was dc home under stable condition. Vital Signs/Physical Exam: Temp Pulse Resp BP Pulse Ox 98.9 F 55 16 132/79 98 05/25/19 08:00 05/25/19 08:00 05/25/19 08:00 05/25/19 08:00 05/25/19 08:00 General: Alert, In no apparent distress HEENT: Atraumatic, PERRLA, EOMI Neck: Supple, JVD not distended Respiratory: Clear to auscultation bilaterally, Normal air movement Cardiovascular: Regular rate/rhythm, Normal S1 S2 Gastrointestinal: Normal bowel sounds, No tenderness Musculoskeletal: No tenderness Integumentary: No rashes Neurological: Normal speech, Normal tone, Normal affect Lymphatics: No axilla or inguinal lymphadenopathy Laboratory Data at Discharge: WBC 19.5 K/uL (4.3-10.9) H D 05/25/19 05:35 Hgb 13.6 g/dL (13.6-17.9) 05/25/19 05:35 Hct 40.8 % (39.6-49.0) 05/25/19 05:35 Plt Count 276 K/uL (152-406) 05/25/19 05:35 PT 15.8 SECONDS (9.5-12.5) H 05/21/19 18:45 INR 1.35 05/21/19 18:45 Sodium 144 mmol/L (136-145) 05/25/19 05:35 Potassium 3.6 mmol/L (3.5-5.1) 05/25/19 05:35 BUN 9 mg/dL (7-18) 05/25/19 05:35 Creatinine 0.95 mg/dL (0.55-1.3) 05/25/19 05:35 Glucose 110 mg/dL (74-106) H 05/25/19 05:35 Phosphorus 2.2 mg/dL (2.5-4.9) L 05/23/19 06:08 Magnesium 1.8 mg/dL (1.8-2.4) D 05/23/19 06:08 Total Bilirubin 0.3 mg/dL (0.2-1.0) 05/25/19 05:35 AST 26 U/L (15-37) 05/25/19 05:35 ALT 57 U/L (12-78) 05/25/19 05:35 Alkaline Phosphatase 174 U/L (45-117) H 05/25/19 05:35 Lipase 38 U/L (73-393) L 05/21/19 18:45 Home Medications: Levofloxacin [Levaquin] 500 mg PO BID #28 tablet 05/25/19 metroNIDAZOLE [Flagyl] 500 mg PO Q6H #52 tablet 05/25/19 New Medications: Levofloxacin [Levaquin] 500 mg PO BID #28 tablet metroNIDAZOLE [Flagyl] 500 mg PO Q6H #52 tablet Diet: Regular Activity: Ad rashmi
[2019-05-25 12:38] LABS: HIV AG/AB 4TH GEN Non-reactive (Non-reactive)
[2019-05-25 19:24] LABS: HBsAG Nonreactive (Nonreactive)
[2019-05-26 21:30] LABS: Hep C Virus RNA (PCR)log <1.18 log IU/mL
== END 2019-05-25 11:00 | disposition home or self-care (01) | DRG 392 ==
LOC: ER 18:04 → ERHOLD 22:17 → 3RD-ICU 23:13 → 4TH 05-23 13:07
PROVIDERS: ADMIT Hospitalist; ATTEND Hospitalist
DX: A09 Infectious gastroenteritis and colitis, unspecified (principal); T67.0XXA Heatstroke and sunstroke, initial encounter; R78.81 Bacteremia; X30.XXXA Exposure to excessive natural heat, initial encounter; Y93.9 Activity, unspecified; F15.10 Other stimulant abuse, uncomplicated
CPT/HCPCS: 36415; 70450; 71045; 74176; 76700; 80048; 80053; 80074; 80076; 80202; 80307; 81003; 81015; 82550; 83605; 83690; 83735; 83880; 84100; 84145; 84484; 85025; 85610; 87040; 87086; 87088; 87205; 87389; 87522; 93005; 93306; 96361; 96365; 96375; 99285; J0692; J1720; J2405; J2543; J3475; J7030

== ENCOUNTER 2019-06-05 16:04 | Emergency (ER) | payer SELFPAY ==
[2019-06-05 16:37] LABS: Absolute Lymphocytes (CBC) 3.2 K/uL (0.7-4.9); Basophils % 0.8 % (0-1.3); Hematocrit 40.3 % (39.6-49.0); Lymphocytes % 31.6 % (15.3-44.8); MPV 9.1 fL (7.6-11.3); RBC Red Blood Cell Count 4.29 M/uL (4.33-5.43)
[2019-06-05 16:52] LABS: Protime INR 0.96
[2019-06-05 17:01] LABS: Blood Morphology Comment NOT SEEN (NOT SEEN); Platelet Estimate ADEQ; Urine White Blood Cell Casts OK
[2019-06-05 17:04] LABS: ALT/SGPT 30 U/L (12-78); AST/SGOT 25 U/L (15-37); Albumin 3.8 g/dL (3.4-5.0); Alkaline Phosphatase 109 U/L (45-117); BUN Blood Urea Nitrogen 13 mg/dL (7-18); Bicarbonate 29 mmol/L (21-32); Bilirubin Direct < 0.1 mg/dL (0-0.2); Bilirubin Total 0.3 mg/dL (0.2-1.0); Glucose Level 73 mg/dL (74-106); Lipase 143 U/L (73-393); Magnesium 2.3 mg/dL (1.8-2.4); NT PRO-BNP 41 pg/mL (<125); Potassium 4.1 mmol/L (3.5-5.1); Protein, Total 7.6 g/dL (6.4-8.2); Sodium Level 144 mmol/L (136-145); Troponin (Emerg Dept Use Only) < 0.02 ng/mL (0.0-0.045)
[2019-06-05] MEDS ORDERED: NA CHLORIDE 0.9% 1,000 ML ONE (17:09)
[2019-06-05 17:26] LABS: Urine Blood NEGATIVE (NEG); Urine Glucose NEGATIVE (NEG); Urine Protein TRACE (NEG); Urine pH 7.5 (5.0-7.0)
[2019-06-05 17:42] LABS: Barbiturates NEGATIVE (NEGATIVE); Benzodiazepines NEGATIVE (NEGATIVE); Cocaine NEGATIVE (NEGATIVE); METHAMPHETAM POSITIVE (NEGATIVE); Methadone NEGATIVE (NEGATIVE); Opiates NEGATIVE (NEGATIVE); Phencyclidine NEGATIVE (NEGATIVE); THC Cannibis NEGATIVE (NEGATIVE)
[2019-06-05] MEDS ORDERED: ONDANSETRON 4 MG/2 ML VIAL ONE (17:42)
[2019-06-05] MEDS ORDERED: KETOROLAC 30 MG/ML INJ ONE (17:42)
--- NOTE | 2019-06-05 18:28 | RAD REPORT ---
EXAM DESCRIPTION: CT - Abdomen Pelvis W Contrast - 06/05/2019 6:02 pm CLINICAL HISTORY: Abdominal pain with vomiting COMPARISON: April 2019 TECHNIQUE: Computed axial tomography of the abdomen pelvis was obtained. 100 cc Isovue-300 was admin istered intravenously. Oral contrast was not requested which limits evaluation of bowel. All CT scans are performed using dose optimization technique as appropriate and may include automated exposure control or mA/KV adjustment according to patient size. FINDINGS: The stomach is distended The liver, spleen, pancreas, adrenal and kidneys appear unremarkable. There is no evidence of diverticulitis. A moderate amount stool within the colon IMPRESSION: Gastric distention. Moderate amount stool within the colon
--- NOTE | 2019-06-05 18:29 | RAD REPORT ---
EXAM DESCRIPTION: Sadiq Single View06/05/2019 4:40 pm CLINICAL HISTORY: Chest pain COMPARISON: April 2019 FINDINGS: The lungs appear clear of acute infiltrate. The heart is normal size IMPRESSION: No acute abnormalities displayed
--- NOTE | 2019-06-05 18:30 | EKG ---
Test Date: 2019-06-05 Test Time: 16:07:23 Head Golf Coach: WILL MEASUREMENT RESULTS: Intervals: Rate: 56 PA: 112 QRSD: 110 QT: 450 QTc: 434 [place]: P: 50 PA: 112 QRS: 74 T: 38 INTERPRETIVE STATEMENTS: Sinus bradycardia Incomplete right bundle branch block Moderate voltage criteria for LVH, may be normal variant Lateral infarct, age undetermined Abnormal ECG Compared to ECG 05/21/2019 18:26:39 Incomplete right bundle-branch block now present Myocardial infarct finding now present Sinus rhythm no longer present Electronically Signed On 06-05-19 18:29:13 CDT by Edmund Rios
[2019-06-05] MEDS ORDERED: ONDANSETRON 4 MG (ODT) TAB ONE (19:12)
--- NOTE | 2019-06-05 19:37 | ER ---
Nurse's Notes [facility] Name: Karson Gant Age: 34 yrs Sex: Male : 1985 Arrival Date: 06/05/2019 Time: 16:07 Bed 20 Private MD: Diagnosis: Unspecified abdominal pain;Chest pain, unspecified;Other stimulant abuse-methamphetamine abuse Presentation: 06/05 16:07 Presenting complaint: EMS states: Reports chest and abdominal pain, N/V and SOB, ph recently seen in ED for similar symptoms and prescribed antibiotics bu cannot afford them, VS WNL. Transition of care: patient was not received from another setting of care. Onset of symptoms was June 05, 2019. Risk Assessment: Do you want to hurt yourself or someone else? Patient reports no desire to harm self or others. Initial Sepsis Screen: Does the patient meet any 2 criteria? No. Patient's initial sepsis screen is negative. Does the patient have a suspected source of infection? No. Patient's initial sepsis screen is negative. Care prior to arrival: None. 16:07 Method Of Arrival: EMS: [facility] 16:07 Acuity: BASIL 3 ph Historical: - Allergies: 16:10 PENICILLINS; ph - PMHx: 16:10 Hypertension; Hypothyroidism; ph - Immunization history:: Adult Immunizations unknown. - Social history:: Smoking status: unknown. - Ebola Screening: : Patient negative for fever greater than or equal to 101.5 degrees Fahrenheit, and additional compatible Ebola Virus Disease symptoms. Screenin:15 Abuse screen: Denies threats or abuse. Nutritional screening: No deficits noted. jd3 Tuberculosis screening: No symptoms or risk factors identified. Fall Risk IV access (20 points). Ambulatory Aid- None/Bed Rest/Nurse Assist (0 pts). Gait- Normal/Bed Rest/Wheelchair (0 pts) Mental Status- Oriented to own ability (0 pts). Total Blas Fall Scale indicates No Risk (0-24 pts). Assessment: 16:30 General: Appears in no apparent distress. comfortable, slender, unkempt, Behavior is ph calm, cooperative, appropriate for age, Denies fever. Pain: Complains of pain in epigastric area, right upper quadrant, left upper quadrant, right lower quadrant and left lower quadrant Pain currently is 6 out of 10 on a pain scale. Neuro: Level of Consciousness is awake, alert, obeys commands, Oriented to person, place, time, situation. Cardiovascular: Reports chest pain, nausea, shortness of breath, vomiting, Capillary refill < 3 seconds in bilateral fingers Patient's skin is warm and dry. Rhythm is regular. Respiratory: Airway is patent Respiratory effort is even, unlabored, Respiratory pattern is regular, symmetrical. GI: Abdomen is flat, non-distended, Bowel sounds present X 4 quads. Abd is soft X 4 quads Reports lower abdominal pain, upper abdominal pain, nausea, vomiting. Derm: Skin is intact, Skin is pink, warm \T\ dry. 17:30 Reassessment: Patient appears in no apparent distress at this time. Patient and/or ph family updated on plan of care and expected duration. Pain level reassessed. Patient is alert, oriented x 3, equal unlabored respirations, skin warm/dry/pink. 19:05 Reassessment: Patient appears in no apparent distress at this time. Patient and/or ph family updated on plan of care and expected duration. Pain level reassessed. Patient is alert, oriented x 3, equal unlabored respirations, skin warm/dry/pink. Pt given sandwich and juice for PO challenge, tolerating well. 19:14 General: Appears in no apparent distress. comfortable, Behavior is calm, cooperative, jd3 appropriate for age. Pain: Denies pain. Neuro: Level of Consciousness is awake, alert, obeys commands, Oriented to person, place, time, situation. Cardiovascular: Denies chest pain, Capillary refill < 3 seconds Patient's skin is warm and dry. Respiratory: Airway is patent Respiratory effort is even, unlabored, Respiratory pattern is regular, symmetrical, Denies cough, shortness of breath. GI: Abdomen is flat, non-distended, Reports nausea. : No signs and/or symptoms were reported regarding the genitourinary system. EENT: No signs and/or symptoms were reported regarding the EENT system. Derm: Skin is intact, Skin is dry, Skin is normal, Skin temperature is warm. Musculoskeletal: Circulation, motion, and sensation intact. Range of motion: intact in all extremities. 19:42 Reassessment: Patient appears in no apparent distress at this time. Patient and/or jd3 family updated on plan of care and expected duration. Pain level reassessed. Patient is alert, oriented x 3, equal unlabored respirations, skin warm/dry/pink. reported understanding of discharge instructions. even and steady gait upon discharge. Vital Signs: 16:09 BP 129 / 80; Pulse 56; Resp 18; Temp 98.1; Pulse Ox 100% on R/A; Pain 7/10; ph 17:00 BP 121 / 87; Pulse 60; Resp 17; Temp 98.3(O); Pulse Ox 100% ; mh5 18:00 BP 122 / 95; Pulse 57; Resp 17; Temp 97.9(O); Pulse Ox 100% on R/A; mh5 19:03 BP 108 / 80; Pulse 58; Resp 18; Temp 98.1; Pulse Ox 100% on R/A; ph ED Course: 16:07 Patient arrived in ED. ph 16:09 Triage completed. ph 16:11 EKG done, by hydro technician. reviewed by Husam Obrien MD. sm3 16:15 Sachin Carvalho NP is PHCP. pm1 16:15 Husam Obrien MD is Attending Physician. pm1 16:43 XRAY Chest (1 view) In Process Unspecified. EDMS 17:05 Caity Koch, RN is Primary Nurse. ph 18:05 Patient has correct armband on for positive identification. Placed in gown. Bed in low mh5 position. Call light in reach. Warm blanket given. awake overnight monitor on. Pulse ox on. NIBP on. 18:09 CT Abd/Pelvis - IV Contrast Only In Process Unspecified. EDMS 19:15 Arm band placed on. jd3 19:43 No provider procedures requiring assistance completed. IV discontinued, intact, jd3 bleeding controlled, No redness/swelling at site. Pressure dressing applied. Administered Medications: 17:14 Drug: NS 0.9% 1000 ml Route: IV; Rate: 1000 ml; Site: left antecubital; ph 19:13 Follow up: Response: No adverse reaction; IV Status: Completed infusion; IV Intake: ph 1000ml 17:52 Drug: TORadol 30 mg Route: IVP; Site: left antecubital; ph 19:14 Follow up: Response: No adverse reaction; Pain is decreased ph 17:53 Drug: Zofran 4 mg Route: IVP; Site: left antecubital; ph 19:14 Follow up: Response: No adverse reaction ph 19:14 Drug: Zofran 4 mg Route: PO; jd3 19:44 Follow up: Response: No adverse reaction jd3 Intake: 19:13 IV: 1000ml; Total: 1000ml. ph Outcome: 19:17 Discharge ordered by . pm1 19:43 Discharged to home ambulatory. jd3 19:43 Condition: stable 19:43 Discharge instructions given to patient, Instructed on discharge instructions, follow up and referral plans. medication usage, Demonstrated understanding of instructions, follow-up care, medications, Prescriptions given X 3. 19:44 Patient left the ED. jd3 Signatures: Dispatcher [employer] EDMS Caity Koch RN RN ph Sachin Carvalho NP HEALTH CARE SPECIALIST pm1 Tara Lainez 5 Felipe Nettles RN RN jd3 Julia Stevens 3
--- NOTE | 2019-06-05 19:38 | EDPHYS ---
Physician Documentation [facility] Name: Karson Gant Age: 34 yrs Sex: Male : 1985 Arrival Date: 06/05/2019 Time: 16:07 Bed 20 Private MD: ED Physician Husam Obrien HPI: 06/05 17:03 This 34 yrs old Male presents to ER via EMS with complaints of Abdominal pm1 Pain, Chest Pain. 17:03 The patient presents with abdominal pain in the upper abdomen. Onset: The pm1 symptoms/episode began/occurred today. The symptoms do not radiate. Associated signs and symptoms: Pertinent positives: chest pain, Palpitations, vomit x 2, Pertinent negatives: constipation, diarrhea, dysuria, fever. The symptoms are described as achy. Modifying factors: The symptoms are alleviated by nothing, the symptoms are aggravated by nothing. Severity of pain: in the emergency department the pain has improved. The patient has experienced a previous episode, approximately 3 weeks ago, possibly due to methamphetamine abuse. Historical: - Allergies: 16:10 PENICILLINS; ph - PMHx: 16:10 Hypertension; Hypothyroidism; ph - Immunization history:: Adult Immunizations unknown. - Social history:: Smoking status: unknown. - Ebola Screening: : Patient negative for fever greater than or equal to 101.5 degrees Fahrenheit, and additional compatible Ebola Virus Disease symptoms. ROS: 17:03 Constitutional: Negative for fever, chills, and weight loss, Eyes: Negative for injury, pm1 pain, redness, and discharge, ENT: Negative for injury, pain, and discharge, Neck: Negative for injury, pain, and swelling. 17:03 Respiratory: Negative for shortness of breath, cough, wheezing, and pleuritic chest pain. 17:03 Back: Negative for injury and pain, : Negative for injury, bleeding, discharge, and swelling, MS/Extremity: Negative for injury and deformity, Skin: Negative for injury, rash, and discoloration, Neuro: Negative for headache, weakness, numbness, tingling, and seizure. 17:03 Cardiovascular: Positive for chest pain, palpitations, Negative for edema, orthopnea. 17:03 Abdomen/GI: Positive for abdominal pain, nausea and vomiting, Negative for diarrhea, constipation. Exam: 17:03 Constitutional: This is a well developed, well nourished patient who is awake, alert, pm1 and in no acute distress. Head/Face: Normocephalic, atraumatic. Neck: Trachea midline, no thyromegaly or masses palpated, and no cervical lymphadenopathy. Supple, full range of motion without nuchal rigidity, or vertebral point tenderness. No Meningismus. Chest/axilla: Normal chest wall appearance and motion. Nontender with no deformity. No lesions are appreciated. Cardiovascular: Regular rate and rhythm with a normal S1 and S2. No gallops, murmurs, or rubs. Normal PMI, no JVD. No pulse deficits. Respiratory: Lungs have equal breath sounds bilaterally, clear to auscultation and percussion. No rales, rhonchi or wheezes noted. No increased work of breathing, no retractions or nasal flaring. Abdomen/GI: Soft, non-tender, with normal bowel sounds. No distension or tympany. No guarding or rebound. No evidence of tenderness throughout. Back: No spinal tenderness. No costovertebral tenderness. Full range of motion. Skin: Warm, dry with normal turgor. Normal color with no rashes, no lesions, and no evidence of cellulitis. MS/ Extremity: Pulses equal, no cyanosis. Neurovascular intact. Full, normal range of motion. 17:03 Neuro: Orientation: is normal, Motor: is normal, moves all fours, Sensation: is normal, no obvious gross deficits. Vital Signs: 16:09 BP 129 / 80; Pulse 56; Resp 18; Temp 98.1; Pulse Ox 100% on R/A; Pain 7/10; ph 17:00 BP 121 / 87; Pulse 60; Resp 17; Temp 98.3(O); Pulse Ox 100% ; mh5 18:00 BP 122 / 95; Pulse 57; Resp 17; Temp 97.9(O); Pulse Ox 100% on R/A; mh5 19:03 BP 108 / 80; Pulse 58; Resp 18; Temp 98.1; Pulse Ox 100% on R/A; ph MDM: 16:17 Patient medically screened. pm1 17:05 Data reviewed: vital signs. Data interpreted: Pulse oximetry: on room air is 100 %. pm1 Interpretation: normal. 19:16 Counseling: I had a detailed discussion with the patient and/or guardian regarding: the pm1 historical points, exam findings, and any diagnostic results supporting the discharge/admit diagnosis, lab results, radiology results, the need for outpatient follow up, to return to the emergency department if symptoms worsen or persist or if there are any questions or concerns that arise at home. 06/05 16:25 Order name: Basic Metabolic Panel; Complete Time: 17:21 pm06/05 16:25 Order name: CBC with Diff; Complete Time: 17:03 pm06/05 16:25 Order name: LFT's; Complete Time: 17:21 pm06/05 16:25 Order name: Magnesium; Complete Time: 17:21 pm06/05 16:25 Order name: NT PRO-BNP; Complete Time: 17:21 pm06/05 16:25 Order name: PT-INR; Complete Time: 17:03 pm06/05 16:25 Order name: Troponin (emerg Dept Use Only); Complete Time: 17:21 pm06/05 16:25 Order name: XRAY Chest (1 view) pm06/05 16:25 Order name: Lipase; Complete Time: 17:21 pm06/05 16:25 Order name: UDS; Complete Time: 17:45 pm06/05 16:29 Order name: CT Abd/Pelvis - IV Contrast Only pm06/05 17:02 Order name: CBC Smear Scan; Complete Time: 17:03 EDMS 06/05 17:02 Order name: Urine Dipstick--Ancillary (enter results); Complete Time: 17:45 bd 06/05 16:25 Order name: EKG; Complete Time: 16:26 pm06/05 16:25 Order name: Cardiac monitoring; Complete Time: 17:05 pm06/05 16:25 Order name: EKG - Nurse/Tech; Complete Time: 17:05 pm06/05 16:25 Order name: IV Saline Lock; Complete Time: 17:05 pm06/05 16:25 Order name: Labs collected and sent; Complete Time: 17:05 pm06/05 16:25 Order name: O2 Per Protocol; Complete Time: 17:05 pm06/05 16:25 Order name: O2 Sat Monitoring; Complete Time: 17:05 pm06/05 16:25 Order name: Urine Dipstick-Ancillary (obtain specimen); Complete Time: 17:05 pm1 06/05 18:46 Order name: PO challenge; Complete Time: 18:57 pm1 Administered Medications: 17:14 Drug: NS 0.9% 1000 ml Route: IV; Rate: 1000 ml; Site: left antecubital; ph 19:13 Follow up: Response: No adverse reaction; IV Status: Completed infusion; IV Intake: ph 1000ml 17:52 Drug: TORadol 30 mg Route: IVP; Site: left antecubital; ph 19:14 Follow up: Response: No adverse reaction; Pain is decreased ph 17:53 Drug: Zofran 4 mg Route: IVP; Site: left antecubital; ph 19:14 Follow up: Response: No adverse reaction ph 19:14 Drug: Zofran 4 mg Route: PO; jd3 19:44 Follow up: Response: No adverse reaction jd3 Disposition: 06/05/19 19:17 Discharged to Home. Impression: Other stimulant abuse - methamphetamine abuse, Unspecified abdominal pain, Chest pain, unspecified. - Condition is Stable. - Discharge Instructions: Abdominal Pain, Adult, Nonspecific Chest Pain, Stimulant Use Disorder-Methamphetamines. - Prescriptions for Bentyl 20 mg Oral Tablet - take 1 tablet by ORAL route every 6 hours As needed; 20 tablet. Pepcid 20 mg Oral Tablet - take 1 tablet by ORAL route every 12 hours for 10 days; 20 tablet. Zofran 4 mg Oral Tablet - take 1 tablet by ORAL route every 12 hours As needed; 20 tablet. - Medication Reconciliation Form, Thank You Letter, Antibiotic Education, Prescription Opioid Use form. - Follow up: Emergency Department; When: As needed; Reason: Worsening of condition. Follow up: Private Physician; When: 2 - 3 days; Reason: Recheck today's complaints, Continuance of care, Re-evaluation by your physician. - Problem is new. - Symptoms have improved. Addendum: 06/08/2019 07:02 Co-signature as Attending Physician, Husam Obrien MD. r n Signatures: Dispatcher [employer] EDHusam Coelho MD MD rn Hall, Patricia, RN RN ph Marinas, Patrick, CURRICULUM COACH CURRICULUM COACH pm1 Felipe Nettles RN RN jd3 Corrections: (The following items were deleted from the chart) 06/05 19:44 19:17 06/05/2019 19:17 Discharged to Home. Impression: Other stimulant abuse - jd3 methamphetamine abuseUnspecified abdominal pain; Chest pain, unspecified. Condition is Stable. Forms are Medication Reconciliation Form, Thank You Letter, Antibiotic Education, Prescription Opioid Use. Follow up: Emergency Department; When: As needed; Reason: Worsening of condition. Follow up: Private Physician; When: 2 - 3 days; Reason: Recheck today's complaints, Continuance of care, Re-evaluation by your physician. Problem is new. Symptoms have improved. pm1
[2019-06-05 21:04] VITALS: O2SAT 100
[2019-06-05 21:13] VITALS: BP 108/80; TEMP 98.1
== END 2019-06-05 19:44 | disposition home or self-care (01) ==
LOC: ER 16:04
DX: F15.10 Other stimulant abuse, uncomplicated (principal); R10.10 Upper abdominal pain, unspecified; I10 Essential (primary) hypertension; Z88.0 Allergy status to penicillin
CPT/HCPCS: 36415; 71045; 74177; 80048; 80076; 80307; 81003; 83690; 83735; 83880; 84484; 85025; 85610; 93005; 96361; 96374; 96375; 99284; J2405; J7030; Q9967

== ENCOUNTER 2019-10-22 00:07 | Emergency (ER) | payer SELFPAY ==
[2019-10-22 00:58] LABS: BUN Blood Urea Nitrogen 14 mg/dL (7-18); Bicarbonate 29 mmol/L (21-32); Glucose Level 108 mg/dL (74-106); Potassium 3.8 mmol/L (3.5-5.1); Sodium Level 139 mmol/L (136-145); Troponin (Emerg Dept Use Only) < 0.02 ng/mL (0.0-0.045)
--- NOTE | 2019-10-22 01:16 | EDPHYS ---
Physician Documentation [facility] Name: Karson Gant Age: 34 yrs Sex: Male : 1985 Arrival Date: 10/22/2019 Time: 00:08 Bed 3 Private MD: ED Physician Husam Obrien HPI: 10/22 00:54 This 34 yrs old Male presents to ER via EMS with complaints of Chest Pain. rn 00:54 The patient or guardian reports chest pain that is located primarily in the anterior rn chest wall. The pain does not radiate. Associated signs and symptoms: Pertinent positives: None. Pertinent negatives: None. The chest pain is described as aching. Duration: The patient or guardian reports a single episode, that is still ongoing. Modifying factors: The symptoms are alleviated by nothing. the symptoms are aggravated by nothing. Severity of pain: At its worst the pain was mild in the emergency department the pain is unchanged. The patient has experienced similar episodes in the past. Reports used meth and marijuana around noon, has been walking around town, began to feel chest pain and sob, came in for eval. No trauma. . Historical: - Allergies: 00:14 PENICILLINS; fc - Home Meds: 00:14 None [Active]; fc - PMHx: 00:14 Hypertension; Hypothyroidism; fc - PSHx: 00:14 tear duct surg; fc - Immunization history:: Last tetanus immunization: up to date Flu vaccine is not up to date. - Coronavirus screen:: The patient has NOT traveled to [place], [place], or [place] in the past 14 days. The patient has NOT had contact with known/suspected case of Coronavirus?. - Social history:: Smoking status: Patient reports the use of cigarette tobacco products, smokes one pack cigarettes per day. Patient uses street drugs, marijuana, Methamphetamine (Meth). - Family history:: not pertinent. - Ebola Screening: : Patient negative for fever greater than or equal to 101.5 degrees Fahrenheit, and additional compatible Ebola Virus Disease symptoms Patient denies exposure to infectious person Patient denies travel to an Ebola-affected area in the 21 days before illness onset. - Hospitalizations: : No recent hospitalization is reported. ROS: 00:54 Constitutional: Negative for fever, chills, and weight loss, Eyes: Negative for injury, rn pain, redness, and discharge, Neck: Negative for injury, pain, and swelling, Cardiovascular: + chest pain Respiratory: Negative for cough, wheezing, and pleuritic chest pain, Abdomen/GI: Negative for abdominal pain, nausea, vomiting, diarrhea, and constipation, MS/Extremity: Negative for injury and deformity, Skin: Negative for injury, rash, and discoloration, Neuro: Negative for headache, weakness, numbness, tingling, and seizure. Exam: 00:54 Constitutional: Thin male, calm and no acute distress Head/Face: Normocephalic, rn atraumatic. Eyes: Pupils equal round and reactive to light, extra-ocular motions intact. Lids and lashes normal. Conjunctiva and sclera are non-icteric and not injected. Cornea within normal limits. Periorbital areas with no swelling, redness, or edema. Neck: Trachea midline, no thyromegaly or masses palpated, and no cervical lymphadenopathy. Supple, full range of motion without nuchal rigidity, or vertebral point tenderness. No Meningismus. Cardiovascular: Regular rate and rhythm. No pulse deficits. Respiratory: No increased work of breathing, no retractions or nasal flaring. Abdomen/GI: soft, non-tender MS/ Extremity: Pulses equal, no cyanosis. Neurovascular intact. Full, normal range of motion. Equal circumference. Neuro: Awake and alert, GCS 15, oriented to person, place, time, and situation. Cranial nerves II-XII grossly intact. Motor strength 5/5 in all extremities. Sensory grossly intact. Vital Signs: 00:00 BP 133 / 91; Pulse 81; Resp 16; Temp 98.1(O); Pulse Ox 100% on R/A; Weight 58.97 kg fc (R); Height 5 ft. 6 in. (167.64 cm) (R); Pain 0/10; 01:15 BP 125 / 91; Pulse 53; Resp 18; Pulse Ox 99% on R/A; ea 00:00 Body Mass Index 20.98 (58.97 kg, 167.64 cm) fc MDM: 00:09 Patient medically screened. rn 01:15 Differential diagnosis: acute pericarditis, anxiety, chest wall pain, pleurisy, rn pneumonia, pneumothorax. Data reviewed: vital signs, nurses notes, lab test result(s), EKG, radiologic studies, plain films, and as a result, I will discharge patient. Counseling: I had a detailed discussion with the patient and/or guardian regarding: the historical points, exam findings, and any diagnostic results supporting the discharge/admit diagnosis, lab results, radiology results, the need for outpatient follow up, to return to the emergency department if symptoms worsen or persist or if there are any questions or concerns that arise at home. Special discussion: Based on the patient's history, exam, and Dx evaluation, there is no indication for emergent intervention or inpatient Tx. It is understood by the patient/guardian that if the Sx's persist or worsen they need to return immediately for re-evaluation. I discussed with the patient/guardian in detail that at this point there is no indication for admission to the hospital. It is understood, however, that if the symptoms persist or worsen the patient needs to return immediately for re-evaluation. 01:16 ED course: trop neg 12 hours after stimulant use, cxr neg, ecg normal.. rn 10/22 00:27 Order name: Basic Metabolic Panel; Complete Time: 01:15 rn 10/22 00:27 Order name: Troponin (emerg Dept Use Only); Complete Time: 01:15 rn 10/22 00:27 Order name: IV Start; Complete Time: 01: rn 10/22 00:27 Order name: XRAY Chest (1 view) rn Administered Medications: 01:25 Drug: TORadol - Ketorolac 15 mg Route: IVP; Site: right antecubital; ea 01:43 Follow up: Response: No adverse reaction ea Disposition: 10/22/19 01:16 Discharged to Home. Impression: Chest pain, unspecified. - Condition is Stable. - Discharge Instructions: Nonspecific Chest Pain. - Medication Reconciliation Form, Thank You Letter, Antibiotic Education, Prescription Opioid Use form. - Follow up: Private Physician; When: As needed; Reason: Recheck today's complaints, Re-evaluation by your physician. - Problem is new. - Symptoms have improved. Signatures: Dispatcher [employer] EDMS Lala Jain RN RN fc Nieto, Roman, MD MD rn Antunez, Elena, RN RN ea Corrections: (The following items were deleted from the chart) 01:43 01:16 10/22/2019 01:16 Discharged to Home. Impression: Chest pain, unspecified. ea Condition is Stable. Forms are Medication Reconciliation Form, Thank You Letter, Antibiotic Education, Prescription Opioid Use. Follow up: Private Physician; When: As needed; Reason: Recheck today's complaints, Re-evaluation by your physician. Problem is new. Symptoms have improved. rn
--- NOTE | 2019-10-22 01:16 | ER ---
Nurse's Notes [facility] Name: Karson Gant Age: 34 yrs Sex: Male : 1985 Arrival Date: 10/22/2019 Time: 00:08 Bed 3 Private MD: Diagnosis: Chest pain, unspecified Presentation: 10/22 00:00 Presenting complaint: EMS states: that pt is homeless and has been walking around in the cold and walking through the water. His feet and soaked, wrinkled and numb. Pt also having chest pain but ONLY with deep breathing. Just laying there pt has no pain at all. Pt did smoke Meth today. Transition of care: patient was not received from another setting of care. Onset of symptoms was October 21, 2019. Risk Assessment: Do you want to hurt yourself or someone else? Patient reports no desire to harm self or others. Initial Sepsis Screen: Does the patient meet any 2 criteria? No. Patient's initial sepsis screen is negative. Does the patient have a suspected source of infection? No. Patient's initial sepsis screen is negative. Care prior to arrival: Glucose check: 87. 00:00 Method Of Arrival: [facility] 00:00 Acuity: BASIL 4 Historical: - Allergies: 00:14 PENICILLINS; fc - Home Meds: 00:14 None [Active]; fc - PMHx: 00:14 Hypertension; Hypothyroidism; fc - PSHx: 00:14 tear duct surg; fc - Immunization history:: Last tetanus immunization: up to date Flu vaccine is not up to date. - Coronavirus screen:: The patient has NOT traveled to [place], [place], or [place] in the past 14 days. The patient has NOT had contact with known/suspected case of Coronavirus?. - Social history:: Smoking status: Patient reports the use of cigarette tobacco products, smokes one pack cigarettes per day. Patient uses street drugs, marijuana, Methamphetamine (Meth). - Family history:: not pertinent. - Ebola Screening: : Patient negative for fever greater than or equal to 101.5 degrees Fahrenheit, and additional compatible Ebola Virus Disease symptoms Patient denies exposure to infectious person Patient denies travel to an Ebola-affected area in the 21 days before illness onset. - Hospitalizations: : No recent hospitalization is reported. Screenin:13 Abuse screen: Denies threats or abuse. Nutritional screening: No deficits noted. ea Tuberculosis screening: No symptoms or risk factors identified. Fall Risk IV access (20 points). Assessment: 00:12 General: Appears in no apparent distress. Behavior is cooperative. Pain: Complains of ea pain in chest. Neuro: Level of Consciousness is awake, alert, obeys commands, Oriented to person, place, situation. Cardiovascular: Patient's skin is warm and dry. Respiratory: Airway is patent Respiratory effort is even, unlabored, Respiratory pattern is regular, symmetrical. Derm: Skin is pink, warm \T\ dry. 01:15 Reassessment: Patient and/or family updated on plan of care and expected duration. Pain ea level reassessed. Pt resting with eyes closed, respirations even and unlabored, chest expansions even and symmetrical. No s/s of pain or discomfort noted at this time. 01:39 Reassessment: Patient and/or family updated on plan of care and expected duration. Pain ea level reassessed. Patient is alert, oriented x 3, equal unlabored respirations, skin warm/dry/pink. Discharge instruction given to patient, verbalized the understanding of instruction. Pt left ED ambulatory. Vital Signs: 00:00 BP 133 / 91; Pulse 81; Resp 16; Temp 98.1(O); Pulse Ox 100% on R/A; Weight 58.97 kg fc (R); Height 5 ft. 6 in. (167.64 cm) (R); Pain 0/10; 01:15 BP 125 / 91; Pulse 53; Resp 18; Pulse Ox 99% on R/A; ea 00:00 Body Mass Index 20.98 (58.97 kg, 167.64 cm) ED Course: 00:00 Arm band placed on Patient placed in an exam room, on a stretcher. 00:08 Patient arrived in ED. ds1 00:09 Husam Obrien MD is Attending Physician. rn 00:12 Triage completed. fc 00:12 Margarita Hernandez, SALUD is Primary Nurse. ea 00:13 Patient has correct armband on for positive identification. Bed in low position. Call ea light in reach. Side rails up X 1. all source intelligence on. Pulse ox on. NIBP on. 00:15 Inserted saline lock: 20 gauge in right upper arm, using aseptic technique. Blood jb5 collected. 00:58 XRAY Chest (1 view) In Process Unspecified. EDMS 01:41 No provider procedures requiring assistance completed. IV discontinued, intact, ea bleeding controlled, No redness/swelling at site. Pressure dressing applied. Administered Medications: 01:25 Drug: TORadol - Ketorolac 15 mg Route: IVP; Site: right antecubital; ea 01:43 Follow up: Response: No adverse reaction ea Outcome: 01:16 Discharge ordered by . rn 01:42 Discharged to home ambulatory. ea 01:42 Condition: stable 01:42 Discharge instructions given to patient, Instructed on discharge instructions, follow up and referral plans. Demonstrated understanding of instructions, follow-up care. 01:43 Patient left the ED. ea Signatures: Dispatcher [employer] EDMS Lala Jain, RN RN Lisa Brock ds1 Husam Obrien MD MD rn Broussard, Jennifer jb5 Margarita Hernandez RN RN ea
[2019-10-22] MEDS ORDERED: KETOROLAC 30 MG/ML INJ ONE (01:26)
[2019-10-22 01:53] VITALS: BP 125/91; O2SAT 99
--- NOTE | 2019-10-22 07:50 | RAD REPORT ---
EXAM DESCRIPTION: Sadiq Single View10/22/2019 12:58 am CLINICAL HISTORY: Chest pain COMPARISON: May 2019 FINDINGS: The lungs appear clear of acute infiltrate. The heart is normal size IMPRESSION: No acute abnormalities displayed
--- NOTE | 2019-10-22 08:04 | EKG ---
Test Date: 2019-10-22 Test Time: 00:21:20 Advertising Inserter: LILA MEASUREMENT RESULTS: Intervals: Rate: 75 AZ: 122 QRSD: 112 QT: 392 QTc: 437 Wit[place]: P: 66 AZ: 122 QRS: 69 T: 47 INTERPRETIVE STATEMENTS: Normal sinus rhythm Normal ECG Compared to ECG 06/05/2019 16:07:23 Sinus bradycardia no longer present Incomplete right bundle-branch block no longer present Left ventricular hypertrophy no longer present Myocardial infarct finding no longer present Electronically Signed On 10-22-19 08:04:00 IRON WORKER APPRENTICE by Deven Barlow
== END 2019-10-22 01:43 | disposition home or self-care (01) ==
LOC: ER 00:07
DX: R07.9 Chest pain, unspecified (principal); I10 Essential (primary) hypertension; F17.210 Nicotine dependence, cigarettes, uncomplicated; Z88.0 Allergy status to penicillin
CPT/HCPCS: 36415; 71045; 80048; 84484; 93005; 96374; 99284

== ENCOUNTER 2020-05-16 22:11 | Emergency (ER) | payer SELFPAY ==
[2020-05-16] MEDS ORDERED: ONDANSETRON 4 MG/2 ML VIAL ONE (23:07)
[2020-05-16] MEDS ORDERED: NA CHLORIDE 0.9% 1,000 ML ONE (23:07)
[2020-05-16] MEDS ORDERED: METOCLOPRAMIDE 10 MG/2mL INJ ONE (23:07)
[2020-05-16] MEDS ORDERED: PANTOPRAZOLE 40 MG INJ ONE (23:07)
[2020-05-16 23:33] LABS: Absolute Lymphocytes (CBC) 2.1 K/uL (0.7-4.9); Basophils % 0.4 % (0-1.3); Hematocrit 42.7 % (39.6-49.0); Lymphocytes % 19.8 % (15.3-44.8); MPV 9.6 fL (7.6-11.3); RBC Red Blood Cell Count 4.63 M/uL (4.33-5.43)
[2020-05-16 23:38] LABS: ALT/SGPT 24 U/L (12-78); AST/SGOT 23 U/L (15-37); Albumin 4.2 g/dL (3.4-5.0); Alkaline Phosphatase 97 U/L (45-117); BUN Blood Urea Nitrogen 15 mg/dL (7-18); Bicarbonate 30 mmol/L (21-32); Bilirubin Direct 0.2 mg/dL (0-0.2); Bilirubin Total 0.7 mg/dL (0.2-1.0); Creatine Phosphokinase 254 U/L (39-308); Glucose Level 90 mg/dL (74-106); Lipase 62 U/L (73-393); Magnesium 2.4 mg/dL (1.8-2.4); Potassium 3.8 mmol/L (3.5-5.1); Protein, Total 8.2 g/dL (6.4-8.2); Sodium Level 142 mmol/L (136-145); Troponin I < 0.02 ng/mL (0.0-0.045)
[2020-05-16 23:52] LABS: Urine Blood NEGATIVE (NEG); Urine Glucose NEGATIVE (NEG); Urine Protein NEGATIVE (NEG); Urine Specific Gravity >1.030 (1.005-1.030); Urine pH 5.5 (5.0-7.0)
[2020-05-17] MEDS ORDERED: KETOROLAC 30 MG/ML INJ ONE (00:11)
[2020-05-17 00:21] LABS: Barbiturates NEGATIVE (NEGATIVE); Benzodiazepines NEGATIVE (NEGATIVE); Cocaine POSITIVE (NEGATIVE); METHAMPHETAM POSITIVE (NEGATIVE); Methadone NEGATIVE (NEGATIVE); Opiates NEGATIVE (NEGATIVE); Phencyclidine NEGATIVE (NEGATIVE); THC Cannibis POSITIVE (NEGATIVE)
--- NOTE | 2020-05-17 01:42 | ER ---
Nurse's Notes [facility] Name: Karson Gant Age: 35 yrs Sex: Male : 1985 Arrival Date: 05/16/2020 Time: 22:14 Bed 15 Private MD: Diagnosis: Headache;Weakness-general;Cocaine abuse;Methamphetamine abuse Presentation: 05/16 22:15 Chief complaint: EMS states: Pt C/O headache for the past 4 hour and generalized wh weakness. Pt also complaining of nausea and vomiting after eating about half an hour ago. Coronavirus screen: Client denies travel out of the [place] in the last 14 days. At this time, the client does not indicate any symptoms associated with coronavirus-19. Ebola Screen: Patient negative for fever greater than or equal to 101.5 degrees Fahrenheit, and additional compatible Ebola Virus Disease symptoms Patient denies exposure to infectious person. Initial Sepsis Screen: Does the patient meet any 2 criteria? No. Patient's initial sepsis screen is negative. Does the patient have a suspected source of infection? No. Patient's initial sepsis screen is negative. Risk Assessment: Do you want to hurt yourself or someone else? Patient reports no desire to harm self or others. Onset of symptoms was May 16, 2020. 22:15 Method Of Arrival: EMS: [facility] 22:15 Acuity: BASIL 3 Triage Assessment: 22:20 Pain: Pain currently is 5 out of 10 on a pain scale. Pain began 4 hours ago. Also wh complains of nausea. 22:20 Headache History: Denies prior headaches. General: Appears unkempt. Historical: - Allergies: 22:18 PENICILLINS; - Home Meds: 22:18 None [Active]; - PMHx: 22:18 Hypertension; Hypothyroidism; - Immunization history:: Adult Immunizations not up to date. - Social history:: Smoking status: Patient reports the use of cigarette tobacco products, smokes one-half pack cigarettes per day, Patient uses alcohol, occasionally. street drugs, Methamphetamine (Meth). Screenin:19 Abuse screen: Denies threats or abuse. Denies injuries from another. Nutritional screening: No deficits noted. Tuberculosis screening: No symptoms or risk factors identified. Fall Risk None identified. Assessment: 22:18 General: Appears unkempt, Behavior is calm, cooperative, appropriate for age. Pain: wh Complains of pain in headache. Neuro: Level of Consciousness is awake, alert, obeys commands, Oriented to person, place, time, situation, Appropriate for age Implementation Consultant are equal bilaterally Moves all extremities. Gait is steady, Speech is normal, Facial symmetry appears normal, Pupils are PERRLA, Reports headache frontal area. Cardiovascular: Capillary refill < 3 seconds. Respiratory: Airway is patent Respiratory effort is even, unlabored, Respiratory pattern is regular, symmetrical. GI: Abdomen is flat, non-distended, Reports nausea, vomiting. : No signs and/or symptoms were reported regarding the genitourinary system. EENT: No signs and/or symptoms were reported regarding the EENT system. Derm: Skin is intact, is healthy with good turgor, Skin is pink, warm \T\ dry. normal. Musculoskeletal: Circulation, motion, and sensation intact. 23:45 Reassessment: No changes from previously documented assessment. Patient and/or family wh updated on plan of care and expected duration. Pain level reassessed. Patient is alert, oriented x 3, equal unlabored respirations, skin warm/dry/pink. 05/17 01:35 Reassessment: Patient and/or family updated on plan of care and expected duration. Pain wh level reassessed. Patient is alert, oriented x 3, equal unlabored respirations, skin warm/dry/pink. Vital Signs: 05/16 22:15 BP 128 / 90; Pulse 67; Resp 18; Temp 97.7; Pulse Ox 100% ; Weight 58.97 kg; Height 5 wh ft. 6 in. (167.64 cm); Pain 5/10; 23:36 BP 121 / 85; Pulse 61; Resp 18 S; Pulse Ox 99% on R/A; bb 05/17 00:30 BP 126 / 89; Pulse 59; Resp 18; Pulse Ox 100% on R/A; wh 01:45 BP 122 / 83; Pulse 71; Resp 18; Pulse Ox 100% on R/A; Pain 0/10; wh 05/16 22:15 Body Mass Index 20.98 (58.97 kg, 167.64 cm) Ruskin Coma Score: 01:41 Eye Response: spontaneous(4). Verbal Response: oriented(5). Motor Response: obeys cp commands(6). Total: 15. ED Course: 05/16 22:14 Patient arrived in ED. 22:17 Triage completed. 22:20 Arm band placed on right wrist. 22:21 Patient has correct armband on for positive identification. Bed in low position. Call light in reach. Side rails up X 1. Pulse ox on. NIBP on. 22:24 Kris Andre PA is PHCP. cp 22:24 Chay Franklin MD is Attending Physician. cp 22:40 Maira Lees is Primary Nurse. 23:05 Inserted saline lock: 20 gauge in right antecubital area, using aseptic technique. Blood collected. 05/17 01:18 CT Head Brain wo Cont In Process Unspecified. EDMS 02:15 No provider procedures requiring assistance completed. IV discontinued, intact, bleeding controlled, No redness/swelling at site. Administered Medications: 05/16 23:09 Drug: NS 0.9% 1000 ml Route: IV; Rate: 1 bolus; Site: right antecubital; 05/17 01:09 Follow up: Response: No adverse reaction; IV Status: Completed infusion 05/16 23:11 Drug: ProTONIX 40 mg Route: IVP; Site: right antecubital; 05/17 01:09 Follow up: Response: No adverse reaction 05/16 23:13 Drug: Zofran (Ondansetron) 4 mg Route: IVP; Site: right antecubital; 05/17 01:09 Follow up: Response: No adverse reaction; Nausea is decreased 05/16 23:15 Drug: Reglan 10 mg Route: IVP; Site: right antecubital; 05/17 01:08 Follow up: Response: No adverse reaction; Nausea is decreased 00:03 Drug: TORadol - Ketorolac 15 mg Route: IVP; Site: right antecubital; 01:10 Follow up: Response: No adverse reaction Outcome: 01:42 Discharge ordered by . cp 02:15 Discharged to home ambulatory. 02:15 Condition: stable 02:15 Discharge instructions given to patient, Instructed on discharge instructions, follow up and referral plans. POC Demonstrated understanding of instructions, follow-up care, POC 02:16 Patient left the ED. Signatures: Dispatcher [employer] EDFarhana Chowdary, RN RN bb Kris Andre PA PA cp Yoana, [facility] Corrections: (The following items were deleted from the chart) 05/16 22:21 22:18 GI: Abdomen is flat, non-distended, [facility] 05/17 02:15 01:45 BP 122 / 83; Pulse 71bpm; Resp 18bpm; Pulse Ox 100% RA; [facility]
--- NOTE | 2020-05-17 01:42 | EDPHYS ---
Physician Documentation [facility] Name: Karson Gant Age: 35 yrs Sex: Male : 1985 Arrival Date: 05/16/2020 Time: 22:14 Bed 15 Private MD: ED Physician Chay Franklin HPI: 05/16 22:45 This 35 yrs old Male presents to ER via EMS with complaints of Headache. cp Historical: - Allergies: 22:18 PENICILLINS; wh - Home Meds: 22:18 None [Active]; wh - PMHx: 22:18 Hypertension; Hypothyroidism; - Immunization history:: Adult Immunizations not up to date. - Social history:: Smoking status: Patient reports the use of cigarette tobacco products, smokes one-half pack cigarettes per day, Patient uses alcohol, occasionally. street drugs, Methamphetamine (Meth). ROS: 22:50 Constitutional: Negative for body aches, chills, fever, poor PO intake. cp 22:50 Eyes: Negative for injury, pain, redness, and discharge. cp 22:50 Cardiovascular: Negative for chest pain. cp 22:50 Respiratory: Negative for cough, shortness of breath, wheezing. 22:50 Abdomen/GI: Positive for nausea, vomiting, hematemesis, Negative for abdominal pain, diarrhea, constipation. 22:50 Neuro: Positive for headache, weakness, Negative for altered mental status, seizure activity. 22:50 All other systems are negative. cp Exam: 22:55 Constitutional: The patient appears in no acute distress, alert, awake, comfortable, cp non-toxic, well developed, well nourished. 22:55 Head/Face: Normocephalic, atraumatic. cp 22:55 Eyes: Periorbital structures: appear normal, Pupils: equal, round, and reactive to light and accomodation, Extraocular movements: intact throughout, Conjunctiva: normal, no exudate, no injection, Sclera: no appreciated abnormality, Lids and lashes: appear normal, bilaterally. 22:55 ENT: External ear(s): are unremarkable, Nose: is normal, Mouth: Lips: moist, Oral mucosa: moist, Posterior pharynx: Airway: no evidence of obstruction, patent, Tonsils: are normal in appearance, erythema, is not appreciated, exudate, is not appreciated. 22:55 Neck: ROM/movement: is normal, is supple, without pain, no range of motions limitations, no meningismus. 22:55 Chest/axilla: Inspection: normal, Palpation: is normal, no crepitus, no tenderness. 22:55 Cardiovascular: Rate: normal, Rhythm: regular. 22:55 Respiratory: the patient does not display signs of respiratory distress, Respirations: normal, no use of accessory muscles, no retractions, labored breathing, is not present, Breath sounds: are clear throughout, no decreased breath sounds, no stridor, no wheezing. 22:55 Abdomen/GI: Inspection: abdomen appears normal, Palpation: soft, in all quadrants, nontender, in all quadrants, involuntary guarding, is not appreciated. 22:55 Back: pain, is absent, ROM is normal. 22:55 Neuro: Orientation: to person, place \T\ time. Mentation: is normal, Motor: moves all fours, strength is normal. 23:14 ECG was reviewed by the Attending Physician. cp Vital Signs: 22:15 BP 128 / 90; Pulse 67; Resp 18; Temp 97.7; Pulse Ox 100% ; Weight 58.97 kg; Height 5 wh ft. 6 in. (167.64 cm); Pain 5/10; 23:36 BP 121 / 85; Pulse 61; Resp 18 S; Pulse Ox 99% on R/A; bb 05/17 00:30 BP 126 / 89; Pulse 59; Resp 18; Pulse Ox 100% on R/A; wh 01:45 BP 122 / 83; Pulse 71; Resp 18; Pulse Ox 100% on R/A; Pain 0/10; wh 05/16 22:15 Body Mass Index 20.98 (58.97 kg, 167.64 cm) Brandy Coma Score: 01:41 Eye Response: spontaneous(4). Verbal Response: oriented(5). Motor Response: obeys cp commands(6). Total: 15. MDM: 05/16 22:34 Patient medically screened. cp 23:00 Differential diagnosis: hypoglycemia, intracerebral hemorrhage, meningitis, migraine, cp tension headache. 05/17 01:40 Data reviewed: vital signs, nurses notes, lab test result(s), radiologic studies, CT cp scan, and as a result, I will discharge patient. 01:41 Test interpretation: by ED physician or midlevel provider: ECG. Counseling: I had a cp detailed discussion with the patient and/or guardian regarding: the historical points, exam findings, and any diagnostic results supporting the discharge/admit diagnosis, lab results, radiology results, to return to the emergency department if symptoms worsen or persist or if there are any questions or concerns that arise at home. Response to treatment: patient is well hydrated. VSS. No active vomiting observed in ED. Patient observed tolerating po fluids and food, and as a result, I will discharge patient. 05/16 22:37 Order name: Basic Metabolic Panel; Complete Time: 23:50 cp 05/16 23:50 Interpretation: Normal except: GFR 77. cp 05/16 22:37 Order name: CBC with Diff; Complete Time: 23:50 cp 05/16 22:37 Order name: Hepatic Function; Complete Time: 23:50 cp 05/16 23:50 Interpretation: Normal except: GLOB 4.0. cp 05/16 22:37 Order name: Lipase; Complete Time: 23:50 cp 05/16 22:37 Order name: CPK; Complete Time: 23:50 cp 05/16 22:38 Order name: UDS; Complete Time: 00:23 cp 05/17 00:23 Interpretation: Normal except: LIZ POSITIVE; METHAMPHETAMINE POSITIVE; THC POSITIVE. cp 05/16 22:38 Order name: Troponin I; Complete Time: 23:50 cp 05/16 23:51 Interpretation: Reviewed. cp 05/16 22:38 Order name: Magnesium; Complete Time: 23:50 cp 05/16 23:37 Order name: CT Head Brain wo Cont cp 05/16 23:45 Order name: Urine Dipstick--Ancillary (enter results) tt3 05/16 23:45 Order name: Urine Dipstick-Ancillary; Complete Time: 00:23 EDMS 05/16 22:37 Order name: IV Saline Lock; Complete Time: 23:15 cp 05/16 22:37 Order name: Labs collected and sent; Complete Time: 23:15 cp 05/16 22:38 Order name: Urine Dipstick-Ancillary (obtain specimen); Complete Time: 23:42 cp 05/16 22:38 Order name: EKG; Complete Time: 22:39 cp 05/16 22:38 Order name: EKG - Nurse/Tech; Complete Time: 23:07 cp 05/16 23:51 Order name: PO challenge; Complete Time: 00:03 cp EC/21 23:14 Rate is 59 beats/min. Rhythm is regular. ND interval is normal. QRS interval is cp prolonged at 118 msec. QT interval is normal. T waves are Inverted in lead aVR. Reviewed by me. Administered Medications: 23:09 Drug: NS 0.9% 1000 ml Route: IV; Rate: 1 bolus; Site: right antecubital; 05/17 01:09 Follow up: Response: No adverse reaction; IV Status: Completed infusion 05/16 23:11 Drug: ProTONIX 40 mg Route: IVP; Site: right antecubital; 05/17 01:09 Follow up: Response: No adverse reaction 05/16 23:13 Drug: Zofran (Ondansetron) 4 mg Route: IVP; Site: right antecubital; 05/17 01:09 Follow up: Response: No adverse reaction; Nausea is decreased 05/16 23:15 Drug: Reglan 10 mg Route: IVP; Site: right antecubital; 05/17 01:08 Follow up: Response: No adverse reaction; Nausea is decreased 00:03 Drug: TORadol - Ketorolac 15 mg Route: IVP; Site: right antecubital; 01:10 Follow up: Response: No adverse reaction Disposition: 03:37 Co-signature as Attending Physician, Chay Franklin MD. [email or web address] Disposition: 05/17/20 01:42 Discharged to Home. Impression: Headache, Weakness - general, Cocaine abuse, Methamphetamine abuse. - Condition is Stable. - Discharge Instructions: Stimulant Use Disorder-Cocaine, General Headache Without Cause, Weakness, Stimulant Use Disorder-Methamphetamines. - Medication Reconciliation Form, Thank You Letter, Antibiotic Education, Prescription Opioid Use form. - Follow up: Private Physician; When: 1 - 2 days; Reason: Recheck today's complaints. - Problem is new. - Symptoms have improved. Signatures: Dispatcher [employer] EDMS Kris Andre PA PA cp [place], Winsy Chay Franklin MD MD [email or web address] Corrections: (The following items were deleted from the chart) 01:44 01:42 05/17/2020 01:42 Discharged to Home. Impression: Headache; Weakness - general; cp Cocaine abuse. Condition is Stable. Forms are Medication Reconciliation Form, Thank You Letter, Antibiotic Education, Prescription Opioid Use. Follow up: Private Physician; When: 1 - 2 days; Reason: Recheck today's complaints. Problem is new. Symptoms have improved. cp 02:16 01:44 05/17/2020 01:42 Discharged to Home. Impression: Headache; Weakness - general; wh Cocaine abuse; Methamphetamine abuse. Condition is Stable. Discharge Instructions: Stimulant Use Disorder-Cocaine, General Headache Without Cause, Weakness, Stimulant Use Disorder-Methamphetamines. Forms are Medication Reconciliation Form, Thank You Letter, Antibiotic Education, Prescription Opioid Use. Follow up: Private Physician; When: 1 - 2 days; Reason: Recheck today's complaints. Problem is new. Symptoms have improved. cp 21:01 05/16 22:50 Abdomen/GI: Negative for abdominal pain, vomiting, diarrhea, constipation, cp cp
--- NOTE | 2020-05-17 14:39 | RAD REPORT ---
EXAM DESCRIPTION: CT - Head Brain Wo Cont - 05/17/2020 5:06 am CLINICAL HISTORY: HEADACHE, generalized weakness and nausea and vomiting TECHNIQUE: Multiple axial CT images of the brain were performed followed by sagittal and coronal rec onstructed images. The CT study is performed according to ALARA (as low as reasonably achievable) or ALARA/IMAGE GENTLY, with automatic adjustment of mA and/or kV according to patient size. Performed on: 05/17/2020 at 1:06 AM COMPARISON: 05/21/2019. FINDINGS: Brain: There is no evidence of mass, acute mass effect or midline shift. There are no acut e extra-axial fluid collections. There is no evidence of acute intracranial hemorrhage. The cerebra l sulci and ventricles are normal in size and configuration..There are no focal abnormal areas of inc reased or decreased attenuation. Paranasal Sinuses and Mastoids: There is no significant mucosal thickening of the paranasal sinuses. The mastoid air cells are clear. Orbits: The orbital contents are grossly unremarkable. There is an old medial wall blowout fracture o f the right orbit. Bones: No acute osseous abnormalities are identified. Soft Tissues: No focal soft tissue abnormalities are identified. IMPRESSION: There is no evidence of acute intracranial pathology. No significant change when compare d to the prior study. Electronically signed by: Melissa Snyder DO 05/17/2020 1:28 AM CDT Due to temporary technical issues with the PACS/Fluency reporting system, reports are being signed by the in house radiologist without review as a courtesy to ensure prompt reporting. The interpreting r adiologist is fully responsible for the content of the report.
== END 2020-05-17 02:16 | disposition home or self-care (01) ==
LOC: ER 22:11
DX: R51 Headache (principal); R53.1 Weakness; F14.10 Cocaine abuse, uncomplicated; F15.10 Other stimulant abuse, uncomplicated; Z88.0 Allergy status to penicillin; F17.210 Nicotine dependence, cigarettes, uncomplicated
CPT/HCPCS: 36415; 70450; 80048; 80076; 80307; 81003; 82550; 83690; 83735; 84484; 85025; 93005; 96361; 96374; 96375; 99284; C9113; J2405; J2765; J7030

== ENCOUNTER 2021-02-25 14:00 | Inpatient (IN) | payer SELFPAY ==
[2021-02-25] MEDS ORDERED: KETOROLAC 30 MG/ML INJ ONE (14:41)
[2021-02-25] MEDS ORDERED: ONDANSETRON 4 MG/2 ML VIAL ONE (14:41)
[2021-02-25] MEDS ORDERED: NA CHLORIDE 0.9% 1,000 ML ONE (14:42)
[2021-02-25 15:05] LABS: Basophils % 0.2 % (0-1.3); Lymphocytes % 29.6 % (15.3-44.8); MPV 8.4 fL (7.6-11.3); RBC Red Blood Cell Count 4.72 M/uL (4.33-5.43)
[2021-02-25 15:26] LABS: ALT/SGPT 29 U/L (12-78); AST/SGOT 16 U/L (15-37); Albumin 4.2 g/dL (3.4-5.0); Alkaline Phosphatase 105 U/L (45-117); BUN Blood Urea Nitrogen 11 mg/dL (7-18); Bicarbonate 30 mmol/L (21-32); Bilirubin Direct < 0.1 mg/dL (0-0.2); Bilirubin Total 0.3 mg/dL (0.2-1.0); Glucose Level 79 mg/dL (74-106); Lipase 58 U/L (73-393); Potassium 4.2 mmol/L (3.5-5.1); Protein, Total 8.5 g/dL (6.4-8.2); Sodium Level 145 mmol/L (136-145)
--- NOTE | 2021-02-25 16:31 | RAD REPORT ---
EXAM DESCRIPTION: CT - Abdomen Pelvis W Contrast - 02/25/2021 4:07 pm CLINICAL HISTORY: lower abdomen pain COMPARISON: CT abdomen and pelvis May 2019 TECHNIQUE: Biphasic, helical CT imaging of the abdomen and pelvis was performed following 100 ml non -ionic IV contrast. No oral contrast administered. All CT scans are performed using dose optimization technique as appropriate and may include automated exposure control or mA/KV adjustment according to patient size. FINDINGS: No suspicious findings in the lung bases. The liver, spleen, and pancreas show no suspicious findings. Gallbladder is normal size. Gallstones c an be occult. Intrahepatic biliary tree dilatation is present without extrahepatic dilatation. Duct s tones can be occult. No evidence for biliary mass or other abnormality proximal to the common bile du ct. This pattern was present in 2018. Symmetric renal function is seen with no hydronephrosis or suspicious renal mass. No pyelonephritis o r acute parenchymal process. No bladder abnormalities. No adrenal abnormalities. No gastric dilatation or wall thickening. Small bowel loops are not dilated. No acute finding at the ileocecal valve. The appendix cannot be clearly identifiable as a unique structure. There is no wall thickening at the tip of the cecum. No direct or indirect findings that would indicate acute appendic itis. Patient has a very large amount of stool distending the colon from cecum to distal sigmoid colo n. The sigmoid colon is tortuous and redundant. A few nondilated fluid-filled small bowel loops are p resent but nonspecific. No free air, free fluid or inflammatory stranding. No hernia, mass or bulky lymphadenopathy. No suspicious bony findings. IMPRESSION: Constipation pattern with a large amount of stool distending the entirety of the colon. No colon wall thickening or mass. The appendix is not clearly identifiable. No direct or indirect evidence for acute appendicitis. Patient has intrahepatic biliary tree dilatation without common duct dilatation or gallbladder abnorm ality. No mass or abnormality identifiable. The pattern is similar to 2019.
[2021-02-25] MEDS ORDERED: MORPHINE 2 MG/ML SYR ONE (18:07)
[2021-02-25] MEDS ORDERED: Levofloxacin 750mg IV 750 MG/150 ML BAG IV ONE (18:07)
[2021-02-25] MEDS ORDERED: METRONIDAZOLE 500mg IVPB 500 MG/100 ML BAG IV ONE (18:08)
--- NOTE | 2021-02-25 18:47 | ER ---
Nurse's Notes [facility] Name: Karson Gant Age: 35 yrs Sex: Male : 1985 Arrival Date: 02/25/2021 Time: 14:01 Bed 23 Private MD: Diagnosis: Lower abdominal pain, unspecified-RLQ Presentation: 02/25 14:02 Chief complaint: EMS states: RLQ abdominal pain since this morning, reports N/V this jl7 morning and diarrhea once the other day. Coronavirus screen: Client denies travel out of the [place] in the last 14 days. At this time, the client does not indicate any symptoms associated with coronavirus-19. Ebola Screen: No symptoms or risks identified at this time. Initial Sepsis Screen: Does the patient meet any 2 criteria? No. Patient's initial sepsis screen is negative. Does the patient have a suspected source of infection? No. Patient's initial sepsis screen is negative. Risk Assessment: Do you want to hurt yourself or someone else? Patient reports no desire to harm self or others. Onset of symptoms was February 25, 2021. Care prior to arrival: None. 14:02 Method Of Arrival: EMS: [facility] 7 14:02 Acuity: BASIL 3 jl7 Triage Assessment: 14:57 General: Appears in no apparent distress. uncomfortable, Behavior is calm, cooperative. ap3 Historical: - Allergies: 14:05 PENICILLINS; jl7 - PMHx: 14:05 Hypertension; Hypothyroidism; jl7 - Immunization history:: Adult Immunizations up to date, Client reports having NOT received the Covid vaccine. - Social history:: Smoking status: Patient reports the use of cigarette tobacco products, daily, Patient uses alcohol, on a daily basis. street drugs, Methamphetamine (Meth). Screenin:57 Abuse screen: Denies threats or abuse. Nutritional screening: No deficits noted. ap3 Tuberculosis screening: No symptoms or risk factors identified. Fall Risk None identified. Assessment: 14:55 General: Reports feeling ill for 12-24 hours. Pain: Complains of pain in right lower ap3 quadrant Pain does not radiate. Pain currently is 5 out of 10 on a pain scale. Pain began patient states pain began this morning. Neuro: Level of Consciousness is awake, alert, obeys commands, Oriented to person, place, time, situation. Cardiovascular: Capillary refill < 3 seconds. Respiratory: Airway is patent Respiratory effort is even, unlabored, Respiratory pattern is regular, symmetrical. GI: Bowel sounds present X 4 quads. Abd is soft X 4 quads Abdomen is tender to palpation in right lower quadrant Reports diarrhea, nausea, vomiting, since this morning. : No signs and/or symptoms were reported regarding the genitourinary system. EENT: No signs and/or symptoms were reported regarding the EENT system. Derm: No signs and/or symptoms reported regarding the dermatologic system. 16:22 Reassessment: Patient and/or family updated on plan of care and expected duration. Pain ap3 level reassessed. Patient is alert, oriented x 3, equal unlabored respirations, skin warm/dry/pink. 16:58 Reassessment: Patient states symptoms have improved. ap3 17:22 Reassessment: Patient and/or family updated on plan of care and expected duration. Pain ap3 level reassessed. Patient is alert, oriented x 3, equal unlabored respirations, skin warm/dry/pink. 18:22 Reassessment: patient in bed, side rails are up x's 2. patient resting with eyes ap3 closed, respirations are even and unlabored at this time. call light is within reach. . 18:45 General: patient provided with ice chips. ap3 19:14 General: patient provided with a sandwich and snack.. ap3 19:46 Reassessment: Patient and/or family updated on plan of care and expected duration. Pain ap3 level reassessed. Patient is alert, oriented x 3, equal unlabored respirations, skin warm/dry/pink. Patient denies pain at this time. Patient states symptoms have improved. patient provided with a snack. 20:56 General: nurse attempted report. Nurse was informed that the receiving nurse would have ap3 to call me back. . 21:05 General:. ap3 Vital Signs: 14:02 BP 118 / 93; Pulse 80; Resp 15 S; Temp 97.5(O); Pulse Ox 100% on R/A; Weight 63.5 kg; jl7 Pain 6/10; 14:55 BP 118 / 93; Pulse 54; Pulse Ox 100% on R/A; Pain 4/10; ap3 15:30 BP 105 / 78; Pulse 60; Pulse Ox 98% on R/A; Pain 3/10; ap3 16:22 BP 118 / 93; Pulse 57; Pulse Ox 99% on R/A; ap3 17:22 BP 107 / 89; Pulse 60; Resp 17; Pulse Ox 100% on R/A; ap3 18:21 BP 95 / 73; Pulse 81; Resp 16; Pulse Ox 100% on R/A; ap3 19:14 BP 92 / 78; Pulse 76; Resp 16; Pulse Ox 99% on R/A; ap3 20:29 BP 104 / 78; Pulse 70; Pulse Ox 100% on R/A; Pain 0/10; ap3 ED Course: 14:01 Patient arrived in ED. ap3 14:03 Kris Andre PA is PHCP. cp 14:03 Avel Lundberg MD is Attending Physician. cp 14:05 Triage completed. jl7 14:05 Arm band placed on right wrist. jl7 14:18 Yuko Baum RN is Primary Nurse. ap3 14:51 Inserted saline lock: 20 gauge in right antecubital area, using aseptic technique. ap3 Blood collected. 14:58 Patient has correct armband on for positive identification. Bed in low position. Call ap3 light in reach. Side rails up X2. Pulse ox on. NIBP on. 16:07 CT Abd/Pelvis - IV Contrast Only In Process Unspecified. EDMS 17:21 ED physician to see patient. ap3 18:46 Dann Cheema PA is Hospitalizing Provider. cp 19:01 Admitting physician to see patient. ap3 20:28 Door closed. Noise minimized. Warm blanket given. ap3 21:37 No provider procedures requiring assistance completed. Patient admitted, IV remains in ap3 place. Administered Medications: 14:51 Drug: NS 0.9% 1000 ml Route: IV; Rate: 1 bolus; Site: right antecubital; ap3 20:56 Follow up: Response: No adverse reaction; IV Status: Completed infusion; IV Intake: ap3 1000ml 14:52 Drug: Zofran (Ondansetron) 4 mg Route: IVP; Site: right antecubital; ap3 17:32 Follow up: Response: No adverse reaction; Nausea is decreased ap3 14:52 Drug: TORadol - (ketorolac) 15 mg Route: IVP; Site: right antecubital; ap3 17:33 Follow up: Response: No adverse reaction; Pain is decreased ap3 17:55 Drug: morphine 2 mg {Note: RASS 1.} Route: IVP; Site: right antecubital; ap3 19:01 Follow up: Response: No adverse reaction; Pain is decreased; RASS: Restless (+1) ap3 17:55 Drug: LevaQUIN (levofloxacin) 750 mg Volume: 150 ml; Route: IVPB; Infused Over: 90 ap3 mins; Site: right antecubital; 19:24 Follow up: Response: No adverse reaction; IV Status: Completed infusion ap3 19:37 Drug: metroNIDAZOLE 500 mg Volume: 100 ml; Route: IVPB; Infused Over: 30 mins; Site: ap3 right antecubital; 20:29 Follow up: Response: No adverse reaction; IV Status: Completed infusion ap3 Intake: 20:56 IV: 1000ml; Total: 1000ml. ap3 Outcome: 18:46 Decision to Hospitalize by Provider. cp 21:05 Admitted to Tele accompanied by nurse, via wheelchair, room 408, with chart, Report ap3 called to mary 21:38 Condition: good ap3 21:38 Patient left the ED. ap3 Signatures: Dispatcher [employer] EDMS Kris Andre PA PA cp Leal, Jahala, RN RN jl7 Yuko Baum RN RN ap3
--- NOTE | 2021-02-25 18:47 | EDPHYS ---
Physician Documentation [facility] Name: Karson Gant Age: 35 yrs Sex: Male : 1985 Arrival Date: 02/25/2021 Time: 14:01 Bed 23 Private MD: ED Physician Avel Lundberg HPI: 02/25 14:15 This 35 yrs old Male presents to ER via EMS with complaints of Abdominal Pain.cp 14:15 The patient presents with abdominal pain in the lower abdomen. Onset: The cp symptoms/episode began/occurred this morning. The symptoms do not radiate. 14:15 Associated signs and symptoms: Pertinent positives: nausea and vomiting, anorexia, cp Pertinent negatives: diarrhea, dysuria, fever, testicular pain, vomiting. 14:15 The symptoms are described as constant. cp Historical: - Allergies: 14:05 PENICILLINS; jl7 - PMHx: 14:05 Hypertension; Hypothyroidism; jl7 - Immunization history:: Adult Immunizations up to date, Client reports having NOT received the Covid vaccine. - Social history:: Smoking status: Patient reports the use of cigarette tobacco products, daily, Patient uses alcohol, on a daily basis. street drugs, Methamphetamine (Meth). ROS: 14:20 Constitutional: Negative for body aches, chills, fever, poor PO intake. cp 14:20 Eyes: Negative for injury, pain, redness, and discharge. cp 14:20 Abdomen/GI: Positive for abdominal pain, of the lower abdomen, Negative for vomiting, diarrhea, constipation. 14:20 Back: Negative for pain at rest, pain with movement. 14:20 : Negative for urinary symptoms, testicular pain Exam: 14:25 Constitutional: The patient appears in no acute distress, alert, awake, non-toxic, well cp developed, well nourished, uncomfortable. 14:25 Head/Face: Normocephalic, atraumatic. cp 14:25 Eyes: Periorbital structures: appear normal, Conjunctiva: normal, no exudate, no injection, Sclera: no appreciated abnormality, Lids and lashes: appear normal, bilaterally. 14:25 ENT: External ear(s): are unremarkable, Nose: is normal, Mouth: Lips: moist, Oral mucosa: moist, Posterior pharynx: Airway: no evidence of obstruction, patent. 14:25 Chest/axilla: Inspection: normal, Palpation: is normal, no crepitus, no tenderness. 14:25 Cardiovascular: Rate: normal, Rhythm: regular. 14:25 Respiratory: the patient does not display signs of respiratory distress, Respirations: normal, no use of accessory muscles, no retractions, labored breathing, is not present, Breath sounds: are clear throughout, no decreased breath sounds, no stridor, no wheezing. 14:25 Abdomen/GI: Inspection: abdomen appears normal, Bowel sounds: active, all quadrants, Palpation: soft, in all quadrants, moderate abdominal tenderness, in the umbilical area and right lower quadrant, rebound tenderness, is not appreciated, voluntary guarding, is elicited in the umbilical area and right lower quadrant. 14:25 Back: CVA tenderness, is absent. 14:25 Skin: cellulitis, is not appreciated, no rash present. Vital Signs: 14:02 BP 118 / 93; Pulse 80; Resp 15 S; Temp 97.5(O); Pulse Ox 100% on R/A; Weight 63.5 kg; jl7 Pain 6/10; 14:55 BP 118 / 93; Pulse 54; Pulse Ox 100% on R/A; Pain 4/10; ap3 15:30 BP 105 / 78; Pulse 60; Pulse Ox 98% on R/A; Pain 3/10; ap3 16:22 BP 118 / 93; Pulse 57; Pulse Ox 99% on R/A; ap3 17:22 BP 107 / 89; Pulse 60; Resp 17; Pulse Ox 100% on R/A; ap3 18:21 BP 95 / 73; Pulse 81; Resp 16; Pulse Ox 100% on R/A; ap3 19:14 BP 92 / 78; Pulse 76; Resp 16; Pulse Ox 99% on R/A; ap3 20:29 BP 104 / 78; Pulse 70; Pulse Ox 100% on R/A; Pain 0/10; ap3 MDM: 14:04 Patient medically screened. cp 17:25 Physician consultation: Jaleel Russell MD was called at 17:25, was contacted at 17:25, cp regarding admission, patient's condition, requests admission to hospitalist for observation, repeat CT with po contrast in morning and give IV antibiotics. 17:30 Data reviewed: vital signs, nurses notes, lab test result(s), radiologic studies, CT cp scan, I have discussed the patient's presentation/case with the attending Emergency Department Physician;. 02/25 14:08 Order name: Basic Metabolic Panel 02/25 14:08 Order name: CBC with Diff 02/25 14:08 Order name: Hepatic Function; Complete Time: 15:42 02/25 15:42 Interpretation: Normal except: TP 8.5; GLOB 4.3; A/G 1.0. cp 02/25 14:08 Order name: Lipase; Complete Time: 15:42 02/25 14:08 Order name: Urine Microscopic Only 02/25 14:09 Order name: Basic Metabolic Panel; Complete Time: 15:42 EDMS 02/25 14:08 Order name: CT Abd/Pelvis - IV Contrast Only; Complete Time: 16:34 02/25 14:09 Order name: CBC with Automated Diff; Complete Time: 15:42 EDMA 02/25 15:43 Interpretation: Normal except: WBC 13.50; MCHC 31.8; PLT 419. 02/25 20:14 Order name: SARS-COV-2 RT PCR EDMA 02/25 14:08 Order name: IV Saline Lock; Complete Time: 14:51 02/25 14:08 Order name: Labs collected and sent; Complete Time: 14:51 02/25 19:13 Order name: CONS Physician Consult EDMS Administered Medications: 14:51 Drug: NS 0.9% 1000 ml Route: IV; Rate: 1 bolus; Site: right antecubital; ap3 20:56 Follow up: Response: No adverse reaction; IV Status: Completed infusion; IV Intake: ap3 1000ml 14:52 Drug: Zofran (Ondansetron) 4 mg Route: IVP; Site: right antecubital; ap3 17:32 Follow up: Response: No adverse reaction; Nausea is decreased ap3 14:52 Drug: TORadol - (ketorolac) 15 mg Route: IVP; Site: right antecubital; ap3 17:33 Follow up: Response: No adverse reaction; Pain is decreased ap3 17:55 Drug: morphine 2 mg {Note: RASS 1.} Route: IVP; Site: right antecubital; ap3 19:01 Follow up: Response: No adverse reaction; Pain is decreased; RASS: Restless (+1) ap3 17:55 Drug: LevaQUIN (levofloxacin) 750 mg Volume: 150 ml; Route: IVPB; Infused Over: 90 ap3 mins; Site: right antecubital; 19:24 Follow up: Response: No adverse reaction; IV Status: Completed infusion ap3 19:37 Drug: metroNIDAZOLE 500 mg Volume: 100 ml; Route: IVPB; Infused Over: 30 mins; Site: ap3 right antecubital; 20:29 Follow up: Response: No adverse reaction; IV Status: Completed infusion ap3 Disposition: 02/25/21 18:46 Hospitalization ordered by Dann Cheema for Observation. Preliminary diagnosis is Lower abdominal pain, unspecified - RLQ. - Bed requested for Telemetry/MedSurg (observation). - Status is Observation. ap3 - Condition is Stable. - Problem is new. - Symptoms have improved. Signatures: Dispatcher [employer] EDMA Aminata Emmanuel RN RN tl1 Kris Andre PA PA cp Leal, Jahala, RN RN jl7 Yuko Baum RN RN ap3 Corrections: (The following items were deleted from the chart) 19:26 18:19 CORONAVIRUS+MR.LAB.BRZ ordered. EDMA EDMS 20:46 18:46 Hospitalization Ordered by Dann BABCOCK for Observation. Preliminary diagnosis tl1 is Lower abdominal pain, unspecified - RLQ. Bed requested for Telemetry/MedSurg (observation). Status is Observation. Condition is Stable. Problem is new. Symptoms have improved. cp 21:38 20:46 02/25/2021 18:46 Hospitalization Ordered by Dann BABCOCK for Observation. ap3 Preliminary diagnosis is Lower abdominal pain, unspecified - RLQ. Bed requested for Telemetry/MedSurg (observation). Status is Observation. Condition is Stable. Problem is new. Symptoms have improved. tl1 06 17:28 02/25 14:15 Associated signs and symptoms: Pertinent positives: anorexia, Pertinent cp negatives: diarrhea, dysuria, fever, testicular pain, vomiting, cp
--- NOTE | 2021-02-25 21:35 | P.HP ---
Certification for Inpatient Patient admitted to: Inpatient With expected LOS: >2 Midnights Patient will require the following post-hospital care: None Practitioner: I am a practitioner with admitting privileges, knowledge of patient current condition, hospital course, and medical plan of care. Services: Services provided to patient in accordance with Admission requirements found in Title 42 Section 412.3 of the Code of Federal Regulations <Dann Cheema - Last Filed: 02/25/21 21:59> Patient History Date of Service: 02/25/21 Reason for admission: abdominal pain History of Present Illness: Mr. Gant is a 35 yo M who woke up at 9am today with 6/10 abdominal pain beginning in the epigastric are and migrating to the RLQ. Pain is worse with walking. Reports anorexia, nausea, vomiting, chills. He smokes 1/2 ppd and uses methamphetamines daily. Ct scan could not rule out appendicitis and also showed large amount of stool in the colon. WBC 13.5. - Past Medical/Surgical History Diabetic: No -: HTN -: hypothyroidism -: tear duct sx - Family History Family History: Reviewed- Non-Contributory - Social History Smoking Status: Current every day smoker Alcohol use: No CD- Drugs: Yes Caffeine use: Yes Place of Residence: Home <Dann Cheema - Last Filed: 02/25/21 21:59> Date of Service: 02/25/21 <Debby Mckeon - Last Filed: 02/26/21 14:37> Allergies Penicillins Allergy (Severe, Verified 02/25/21 23:49) Anaphylaxis Home Medications: NK [No Home Meds] 02/25/21 Review of Systems General: Chills, As per HPI Eyes: Unremarkable ENT: Unremarkable Respiratory: Unremarkable Cardiovascular: Unremarkable Gastrointestinal: Nausea, Vomiting, Abdominal Pain, As per HPI Genitourinary: Unremarkable Musculoskeletal: Unremarkable Integumentary: Unremarkable Neurological: Unremarkable Lymphatics: Unremarkable <Dann Cheema - Last Filed: 02/25/21 21:59> Physical Examination - Physical Exam General: Alert, In no apparent distress, Oriented x3, Cooperative HEENT: Atraumatic, Normocephalic, PERRLA, Mucous membr. moist/pink, EOMI, Sclerae nonicteric Neck: Supple, 2+ carotid pulse no bruit, JVD not distended, No Thyromegaly, No LAD Respiratory: Clear to auscultation bilaterally, Normal air movement Cardiovascular: No edema, Normal pulses, Regular rate/rhythm, Normal S1 S2, No gallops, No rubs, No murmurs Capillary refill: <2 Seconds Gastrointestinal: Normal bowel sounds, Soft and benign, Non-distended, No ascites, No masses, No rebound, No guarding, Tenderness Musculoskeletal: No clubbing, No swelling, No contractures, No erythema, No tenderness, No warmth Integumentary: No rashes, No breakdown, No significant lesion, No tenderness/swelling, No erythema, No warmth, No cyanosis Neurological: Normal speech, Normal strength at 5/5 x4 extr, Normal tone, Sensation intact, Cranial nerves 3-12 intact, Normal affect Lymphatics: No axilla or inguinal lymphadenopathy - Studies Laboratory Data (last 24 hrs) 02/25/21 14:48: WBC 13.50 H, Hgb 14.0, Hct 44.0, Plt Count 419 H 02/25/21 14:48: Sodium 145, Potassium 4.2, BUN 11, Creatinine 0.92, Glucose 79, Total Bilirubin 0.3, AST 16, ALT 29, Alkaline Phosphatase 105, Lipase 58 L <aDnn Cheema - Last Filed: 02/25/21 21:59> - Studies Laboratory Data (last 24 hrs) 02/25/21 14:48: WBC 13.50 H, Hgb 14.0, Hct 44.0, Plt Count 419 H 02/25/21 14:48: Sodium 145, Potassium 4.2, BUN 11, Creatinine 0.92, Glucose 79, Total Bilirubin 0.3, AST 16, ALT 29, Alkaline Phosphatase 105, Lipase 58 L <Debby Mckeon - Last Filed: 02/26/21 14:37> Assessment and Plan - Problems (Diagnosis) (1) Abdominal pain Current Visit: Yes Status: Acute Qualifiers: Abdominal location: unspecified location Qualified Code(s): R10.9 - Unspecified abdominal pain (2) Methamphetamine abuse Current Visit: No Status: Chronic - Plan surgery consulted repeat CT scan in the AM to rule out appendicitis continue IV levaquin and flagyl, continue IVF NPO after midnight pain management as needed will start bowel regimen tomorrow once appendicitis is ruled out Discharge Plan: Home Plan to discharge in: 48 Hours - Advance Directives Does patient have a Living Will: No Does patient have a Durable POA for Healthcare: No - Code Status/Comfort Care Code Status Assessed: Yes (full code) Critical Care: No Time Spent Managing Pts Care (In Minutes): 70 <Dann Cheema - Last Filed: 02/25/21 21:59> Date of Service: 02/25/21 Patient doing well. Anticipate discharge in a.m. if symptoms are improved. Physical Examination Vitals: Afebrile vital signs are stable Abdomen: Soft, slightly tender in the lower quadrant Cardiovascular exam: Regular rate rhythm no murmur Neuro no focal deficits Advanced diet as tolerated anticipate discharge in a.m. <Debby Mckeon - Last Filed: 02/26/21 14:37>
[2021-02-25] MEDS ORDERED: ACETAMINOPHEN 500 MG TAB PO PRN (21:41)
[2021-02-25] MEDS ORDERED: MORPHINE 2 MG/ML SYR IV PRN (21:41)
[2021-02-25] MEDS ORDERED: ONDANSETRON 4 MG/2 ML VIAL IV PRN (21:41)
[2021-02-25] MEDS ORDERED: DOCUSATE NA/SENNA CONC 1 TAB PO PRN (21:45)
[2021-02-25] MEDS ORDERED: POLYETHYL GLY 3350 17 GM/DOSE PO PRN (21:45)
[2021-02-25 22:12] VITALS: BMI 22.8
[2021-02-25] MEDS: NA CHLORIDE 0.9% 1,000 ML IV SCH (22:13)
[2021-02-26] MEDS: METRONIDAZOLE 500mg IVPB 500 MG/100 ML BAG IV SCH ×2 (01:31→08:38)
[2021-02-26 04:48] LABS: Urine Appearance CLEAR (Clear); Urine Bilirubin NEGATIVE (Negative); Urine Blood NEGATIVE (Negative); Urine Color YELLOW (Yellow); Urine Glucose NEGATIVE (Negative); Urine Protein NEGATIVE (Negative); Urine Specific Gravity >=1.030 (1.005-1.030); Urine Urobilinogen 0.2 mg/dL (0.2-1.0); Urine pH 6.5 (5.0-7.0)
[2021-02-26 05:12] LABS: Barbiturates NEGATIVE (NEGATIVE); Benzodiazepines NEGATIVE (NEGATIVE); Cocaine POSITIVE (NEGATIVE); METHAMPHETAM POSITIVE (NEGATIVE); Methadone NEGATIVE (NEGATIVE); Phencyclidine NEGATIVE (NEGATIVE); THC Cannibis NEGATIVE (NEGATIVE)
[2021-02-26 05:13] LABS: Opiates POSITIVE (NEGATIVE)
[2021-02-26 05:40] LABS: Absolute Lymphocytes (CBC) 4.5 K/uL (0.7-4.9); Basophils % 0.4 % (0-1.3); Hematocrit 36.5 % (39.6-49.0); Lymphocytes % 41.1 % (15.3-44.8); MPV 8.7 fL (7.6-11.3); RBC Red Blood Cell Count 3.96 M/uL (4.33-5.43)
[2021-02-26 05:45] LABS: ALT/SGPT 22 U/L (12-78); AST/SGOT 9 U/L (15-37); Alkaline Phosphatase 76 U/L (45-117); BUN Blood Urea Nitrogen 12 mg/dL (7-18); Bicarbonate 29 mmol/L (21-32); Bilirubin Total 0.3 mg/dL (0.2-1.0); Glucose Level 87 mg/dL (74-106); Magnesium 1.8 mg/dL (1.8-2.4); Potassium 3.6 mmol/L (3.5-5.1); Protein, Total 5.9 g/dL (6.4-8.2); Sodium Level 142 mmol/L (136-145)
[2021-02-26 05:50] LABS: Urine Bacteria <20 /HPF (NONE SEEN)
[2021-02-26 05:51] LABS: Calcium Oxalate Crystals- Ur FEW (NONE SEEN); Urine RBC NONE SEEN /HPF (NONE SEEN)
[2021-02-26] MEDS: NA CHLORIDE 0.9% 1,000 ML IV SCH (07:09)
[2021-02-26] MEDS ORDERED: MAGNESIUM SULFATE 1 gm IVPB 1 GM/100 ML BAG IV ONE (08:00)
[2021-02-26] MEDS ORDERED: KCL 20 MEQ/100 mL IVPB 20 MEQ/100 ML BAG IV SCH (09:00)
[2021-02-26 09:44] VITALS: O2SAT 99
--- NOTE | 2021-02-26 09:46 | RAD REPORT ---
EXAM DESCRIPTION: CT - Abdomen Pelvis Wo Contrast - 02/26/2021 9:26 am CLINICAL HISTORY: Abdominal pain COMPARISON: February 25, 2021 TECHNIQUE: Computed axial tomography of the abdomen and pelvis was obtained. IV was not requested. O ral contrast was given. Coronal reconstructions performed. All CT scans are performed using dose optimization technique as appropriate and may include automated exposure control or mA/KV adjustment according to patient size. FINDINGS: The evaluation of solid organs and vessels is limited secondary to the lack of contrast a dministration. The liver, spleen, pancreas, adrenals and kidneys appear grossly normal. The proximal and mid appendix are normal caliber and contains contrast. Distal appendix is not clearl y seen. An abnormal appendix is not visualized. Large amount stool is present throughout the colon. Minimal amount of ascites IMPRESSION: Minimal amount ascites Proximal and mid appendix are normal. Distal appendix is not clearly seen. An abnormal appendix is no t visualized. My suspicion for appendicitis is low. If patient continues to have symptoms to suggest this then followup CT imaging would be recommended Large amount stool within the colon
[2021-02-26] MEDS ORDERED: BISACODYL 10 MG RECTAL SUPP PR ONE (10:49)
[2021-02-26 12:17] VITALS: BP 102/71; TEMP 97.2
--- NOTE | 2021-02-26 14:41 | P.DS ---
Discharge Date: 02/26/21 Disposition: ROUTINE DISCHARGE Discharge Condition: GOOD Reason for Admission: abdominal pain Brief History of Present Illness: Mr. Gant is a 35 yo M who woke up at 9am today with 6/10 abdominal pain beginning in the epigastric are and migrating to the RLQ. Pain is worse with walking. Reports anorexia, nausea, vomiting, chills. He smokes 1/2 ppd and uses methamphetamines daily. Ct scan could not rule out appendicitis and also showed large amount of stool in the colon. WBC 13.5. Hospital Course: Patient done well during hospital stay. Patient is clinically doing well in stable for discharge. Vital Signs/Physical Exam: Temp Pulse Resp BP Pulse Ox 97.2 F 57 15 102/71 98 02/26/21 12:00 02/26/21 12:00 02/26/21 12:00 02/26/21 12:00 02/26/21 12:00 General: Alert, In no apparent distress, Oriented x3 Laboratory Data at Discharge: WBC 10.80 K/uL (4.3-10.9) D 02/26/21 05:00 Hgb 12.1 g/dL (13.6-17.9) L 02/26/21 05:00 Hct 36.5 % (39.6-49.0) L D 02/26/21 05:00 Plt Count 331 K/uL (152-406) D 02/26/21 05:00 Sodium 142 mmol/L (136-145) 02/26/21 05:00 Potassium 3.6 mmol/L (3.5-5.1) 02/26/21 05:00 BUN 12 mg/dL (7-18) 02/26/21 05:00 Creatinine 0.69 mg/dL (0.55-1.3) 02/26/21 05:00 Glucose 87 mg/dL (74-106) 02/26/21 05:00 Phosphorus 3.0 mg/dL (2.5-4.9) 02/26/21 05:00 Magnesium 1.8 mg/dL (1.8-2.4) D 02/26/21 05:00 Total Bilirubin 0.3 mg/dL (0.2-1.0) 02/26/21 05:00 AST 9 U/L (15-37) L 02/26/21 05:00 ALT 22 U/L (12-78) 02/26/21 05:00 Alkaline Phosphatase 76 U/L (45-117) 02/26/21 05:00 Lipase 58 U/L (73-393) L 02/25/21 14:48 Home Medications: NK [No Home Meds] 02/25/21 Physician Discharge Instructions: OK TO DC IV AND DC HOME FOLLOW-UP WITH PRIMARY CARE PROVIDER IN 1-2 WEEKS RETURN TO THE ER IF symptoms worsen CALL or TEXT DR. SANTO AT [phone] IF ANY QUESTIONS REGARDING HOSPITAL STAY. PLEASE CALL THE FLOOR AT [phone] IF ANY MEDICATION OR NURSING QUESTIONS. Diet: Regular Activity: Fall precautions Followup: NONE,NONE [Primary Care Provider] - Time spent managing pt's care (in minutes): 25
--- NOTE | 2021-02-26 15:42 | CON ---
Date of Consultation: 02/26/2021 Brief History Of Present Illness: The patient is a 35-year-old homeless male, who presents to the [facility] with complaints of abdominal pain beginning at 9 a.m. on 02/25/2021, 03/05 at its worst. He is homeless and has been homeless for approximately 10 years, living on the streets. His diet is very inconsistent. He had been using some methamphetamines as well as cocaine the day before of the prese ntation of his pain. He reported loss of appetite, nausea, vomiting, fever, chills. He presented to the emergency room with the above-stated complaints. Since being admitted to the hospital, he feels significant symptomatic improvement. He has been having spontaneous bowel movements. No nausea. N o vomiting. His abdominal pain is resolved during my examination. Past Medical History: Hypertension, hypothyroidism. Past Surgical History: Tear duct surgery. Home Medications: None. Allergies: TO PENICILLIN. Social History: Unknown. Smoking, he smokes cigarettes every day. He uses recreational cocaine and methamphetamines daily. He denies alcohol use. Review of Systems: Ten-point review of systems other than HPI, denies. Physical Examination: Vital Signs: At the time of my examination; his BMI was 22.8. His temperature was 97.2, heart rate is 57, respiratory rate is 18, SpO2 98% on room air. General: He is awake, alert, and oriented. Psychiatric: Appropriate. Conversive. HEENT: Normocephalic. Sclerae anicteric. Mucous membranes are moist. Oropharynx clear. Neck: Supple without JVD. Chest: Normal expansion and excursion. Cardiovascular: Regular rate and rhythm. Pulmonary: Clear to auscultation bilaterally. Abdomen: Soft, nontender, nondistended. No rebound. No guarding. No focal peritonitis. Extremities: No clubbing, cyanosis, or edema. Skin: Warm and dry. Laboratory Data: Reveals a white blood cell count of 10.8, hemoglobin 12.1, hematocrit 36.5, platele t count is 331. His neutrophils were normal at 44.5%. Sodium 142, potassium 3.6, chloride 109, carb on dioxide 29, BUN 12, creatinine 0.69. His glucose was 87. Total bilirubin is 0.3, AST 9, ALT 22, alkaline phosphatase 76, lipase 58. UA is negative. Tox screen was positive for opioids, methamphet amines and cocaine. COVID was negative. He had imaging performed, which included a CT scan of the a bdomen and pelvis with repeat CT of the abdomen and pelvis with p.o. contrast. The subsequent CT sca n from 02/26/2021 shows proximal and mid appendix are normal, distal appendix not clearly seen. Appe ndicitis is not visualized. My suspicion for appendicitis is low. The patient continues to have sym ptoms, a followup CT could be recommended. A large amount of stool within the colon. Assessment And Plan: This is a 35-year-old male, who presents with signs and symptoms of constipatio n. 1.IV fluid hydration. 2.Antibiotic coverage. 3.Serial abdominal exams. 4.I recommend starting clear liquid diet and advance as tolerated and Shoe Shanker consult for th e patient's social situations. I have explained the risks, benefits, and alternatives of the above s tated plan. The patient agrees to proceed as indicated. SILVANA/MANA Voice ID: [id number] Report ID: [id number]
[2021-02-26] MEDS ORDERED: Levofloxacin 750mg IV 750 MG/150 ML BAG IV SCH (20:00)
[2021-02-26] MEDS ORDERED: FLEET ENEMA ADULT PR PRN (21:00)
== END 2021-02-26 14:47 | disposition left against medical advice (07) | DRG 392 ==
LOC: ER 14:00 → ERHOLD 19:12 → 4TH 21:12
PROVIDERS: ADMIT Hospitalist; ATTEND Hospitalist
DX: R10.9 Unspecified abdominal pain (principal); Z59.0 Homelessness; I10 Essential (primary) hypertension; E03.9 Hypothyroidism, unspecified; F15.10 Other stimulant abuse, uncomplicated; F14.90 Cocaine use, unspecified, uncomplicated; F17.210 Nicotine dependence, cigarettes, uncomplicated; Z88.0 Allergy status to penicillin; Z20.822 Contact with and (suspected) exposure to COVID-19; Z53.29 Procedure and treatment not carried out because of patient's decision for other reasons
CPT/HCPCS: 36415; 74176; 74177; 80048; 80053; 80076; 80307; 81001; 83690; 83735; 84100; 85025; 94760; 96361; 96365; 96367; 96375; 99285; J2270; J2405; J3475; J3480; J7030; Q9967; U0003

== ENCOUNTER 2021-03-12 00:42 | Emergency (ER) | payer SELFPAY ==
[2021-03-12 01:07] LABS: Absolute Lymphocytes (CBC) 4.6 K/uL (0.7-4.9); Basophils % 0.8 % (0-1.3); Lymphocytes % 35.7 % (15.3-44.8); MPV 8.5 fL (7.6-11.3); RBC Red Blood Cell Count 4.51 M/uL (4.33-5.43)
[2021-03-12 01:19] LABS: BUN Blood Urea Nitrogen 23 mg/dL (7-18); Bicarbonate 27 mmol/L (21-32); Glucose Level 80 mg/dL (74-106); Potassium 3.4 mmol/L (3.5-5.1); Sodium Level 142 mmol/L (136-145); Troponin (Emerg Dept Use Only) < 0.02 ng/mL (0.0-0.045)
--- NOTE | 2021-03-12 02:48 | ER ---
Nurse's Notes [facility] Name: Karson Gant Age: 36 yrs Sex: Male : 1985 Arrival Date: 03/12/2021 Time: 00:45 Bed 18 Private MD: Diagnosis: Chest pain, unspecified Presentation: 03/12 00:45 Chief complaint: EMS states: called out for chest pain 1 hour, used meth. 2 hours ago, em reports chest tightness, denies N/V. Coronavirus screen: Client denies travel out of the [place] in the last 14 days. Ebola Screen: Patient negative for fever greater than or equal to 101.5 degrees Fahrenheit, and additional compatible Ebola Virus Disease symptoms Patient denies exposure to infectious person. Patient denies travel to an Ebola-affected area in the 21 days before illness onset. No symptoms or risks identified at this time. Initial Sepsis Screen: Does the patient meet any 2 criteria? No. Patient's initial sepsis screen is negative. Does the patient have a suspected source of infection? No. Patient's initial sepsis screen is negative. Risk Assessment: Do you want to hurt yourself or someone else? Patient reports no desire to harm self or others. Onset of symptoms was March 12, 2021. 00:45 Method Of Arrival: EMS: [facility] em 00:45 Acuity: BASIL 3 em Historical: - Allergies: 00:47 PENICILLINS; em - PMHx: 00:47 Hypertension; Hypothyroidism; em - PSHx: 00:47 None; em - Immunization history:: Adult Immunizations. - Social history:: Smoking status: Patient denies any tobacco usage or history of. - Family history:: not pertinent. - Hospitalizations: : No recent hospitalization is reported. Screenin:08 Abuse screen: Denies threats or abuse. Denies injuries from another. Nutritional jm8 screening: No deficits noted. Tuberculosis screening: No symptoms or risk factors identified. Fall Risk None identified. Assessment: 01:09 General: Appears in no apparent distress. comfortable, Behavior is calm, cooperative. jm8 Pain: Complains of pain in chest Pain does not radiate. Pain currently is 4 out of 10 on a pain scale. Pain began 2 hours ago. Also complains of no other associated symptoms. Neuro: No deficits noted. Cardiovascular: Reports chest pain, Patient's skin is warm and dry. Rhythm is sinus rhythm. Respiratory: No deficits noted. Respiratory: Airway is patent Trachea midline Respiratory effort is even, unlabored, Respiratory pattern is regular, symmetrical. GI: No deficits noted. No signs and/or symptoms were reported involving the gastrointestinal system. : No deficits noted. No signs and/or symptoms were reported regarding the genitourinary system. EENT: No deficits noted. No signs and/or symptoms were reported regarding the EENT system. Derm: No deficits noted. No signs and/or symptoms reported regarding the dermatologic system. Musculoskeletal: No deficits noted. No signs and/or symptoms reported regarding the musculoskeletal system. Vital Signs: 00:45 BP 122 / 85; Pulse 86; Resp 18; Temp 97.7; Pulse Ox 100% on R/A; Weight 58.97 kg; em Height 5 ft. 6 in. (167.64 cm); Pain 3/10; 03:04 BP 105 / 74; Pulse 67; Resp 16; Pulse Ox 98% on R/A; jm8 00:45 Body Mass Index 20.98 (58.97 kg, 167.64 cm) em ED Course: 00:45 Patient arrived in ED. em 00:46 Husam Obrien MD is Attending Physician. rn 00:47 Triage completed. em 00:47 Arm band placed on. em 01:08 Patient has correct armband on for positive identification. Bed in low position. Call jm8 light in reach. Side rails up X2. clinical research monitor on. Pulse ox on. NIBP on. 01:12 Patient maintains SpO2 saturation greater than 95% on room air. jm8 01:12 Inserted saline lock: 18 gauge in left antecubital area, using aseptic technique. jm8 01:26 XRAY Chest (1 view) In Process Unspecified. EDMS 03:17 No provider procedures requiring assistance completed. IV discontinued, intact. jm8 Administered Medications: No medications were administered Outcome: 02:48 Discharge ordered by . rn 03:16 Discharged to home ambulatory. jm8 03:16 Condition: good 03:16 Discharge instructions given to patient, Instructed on discharge instructions, follow up and referral plans. medication usage, Demonstrated understanding of instructions, follow-up care, medications. 03:17 Patient left the ED. jm8 Signatures: Dispatcher [employer] EDMT Thierno Osborne, Husam Mancilla RN, MD MD rn Malcaba, Joseph, SALUD RN jm8
--- NOTE | 2021-03-12 02:49 | EDPHYS ---
Physician Documentation [facility] Name: Karson Gant Age: 36 yrs Sex: Male : 1985 Arrival Date: 03/12/2021 Time: 00:45 Bed 18 Private MD: ED Physician Husam Obrien HPI: 03/12 00:46 This 36 yrs old Male presents to ER via Unassigned with complaints of Chest rn Pain. 00:46 The patient or guardian reports chest pain that is located primarily in the substernal rn area. The pain radiates to Associated signs and symptoms: Pertinent negatives: abdominal pain, cough, diaphoresis, headache, shortness of breath, syncope, vomiting. The chest pain is described as a heaviness. Duration: The patient or guardian reports a single episode. Modifying factors: The symptoms are alleviated by nothing. the symptoms are aggravated by nothing. Severity of pain: At its worst the pain was moderate in the emergency department the pain has resolved. The patient has not experienced similar symptoms in the past. The patient has not recently seen a physician. 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 No famhx of early cardiac problems. No trauma. No recent illness or cough.. Historical: - Allergies: 00:47 PENICILLINS; em - PMHx: 00:47 Hypertension; Hypothyroidism; em - PSHx: 00:47 None; em - Immunization history:: Adult Immunizations. - Social history:: Smoking status: Patient denies any tobacco usage or history of. - Family history:: not pertinent. - Hospitalizations: : No recent hospitalization is reported. ROS: 00:46 Constitutional: Negative for fever, chills, and weight loss, Eyes: Negative for injury, rn pain, redness, and discharge, Neck: Negative for injury, pain, and swelling, Cardiovascular: Negative for edema, Respiratory: Negative for shortness of breath, cough, wheezing, and pleuritic chest pain, Abdomen/GI: Negative for abdominal pain, nausea, vomiting, diarrhea, and constipation, Back: Negative for injury and pain, : Negative for injury, bleeding, discharge, and swelling, MS/Extremity: Negative for injury and deformity, Skin: Negative for injury, rash, and discoloration, Neuro: Negative for headache, weakness, numbness, tingling, and seizure. Exam: 00:46 Constitutional: This is a well developed, well nourished patient who is awake, alert, rn and in no acute distress. Still seems intoxicated. Head/Face: Normocephalic, atraumatic. Eyes: Pupils equal round and reactive to light, extra-ocular motions intact. Lids and lashes normal. Conjunctiva and sclera are non-icteric and not injected. Cornea within normal limits. Periorbital areas with no swelling, redness, or edema. Neck: Trachea midline, no masses palpated, and no cervical lymphadenopathy. Supple, full range of motion without nuchal rigidity, or vertebral point tenderness. No Meningismus. Cardiovascular: Regular rate and rhythm. No pulse deficits. Respiratory: No increased work of breathing, no retractions or nasal flaring. Abdomen/GI: soft, non-tender Skin: Warm, dry MS/ Extremity: Pulses equal, no cyanosis Neuro: Awake and alert, GCS 15 Vital Signs: 00:45 BP 122 / 85; Pulse 86; Resp 18; Temp 97.7; Pulse Ox 100% on R/A; Weight 58.97 kg; em Height 5 ft. 6 in. (167.64 cm); Pain 3/10; 03:04 BP 105 / 74; Pulse 67; Resp 16; Pulse Ox 98% on R/A; jm8 00:45 Body Mass Index 20.98 (58.97 kg, 167.64 cm) em MDM: 00:46 Patient medically screened. rn 02:47 Differential diagnosis: acute myocardial infarction, acute pericarditis, anxiety, chest rn wall pain, pericarditis, pleurisy, pneumothorax, pulmonary embolus, drug related pain, vasospasm. Data reviewed: vital signs, nurses notes, lab test result(s), EKG, radiologic studies, plain films, and as a result, I will discharge patient. Counseling: I had a detailed discussion with the patient and/or guardian regarding: the historical points, exam findings, and any diagnostic results supporting the discharge/admit diagnosis, lab results, radiology results, the need for outpatient follow up, to return to the emergency department if symptoms worsen or persist or if there are any questions or concerns that arise at home. Special discussion: Based on the patient's history, exam, and Dx evaluation, there is no indication for emergent intervention or inpatient Tx. It is understood by the patient/guardian that if the Sx's persist or worsen they need to return immediately for re-evaluation. I discussed with the patient/guardian in detail that at this point there is no indication for admission to the hospital. It is understood, however, that if the symptoms persist or worsen the patient needs to return immediately for re-evaluation. ED course: Advised patient to stop using drugs. Trop neg, ecg without ischemia, will dc home. . 03/12 00:46 Order name: Basic Metabolic Panel rn 03/12 00:46 Order name: CBC with Diff; Complete Time: 02:47 rn 03/12 00:46 Order name: Troponin (emerg Dept Use Only); Complete Time: 02:47 rn 03/12 00:46 Order name: XRAY Chest (1 view) rn 03/12 00:47 Order name: Basic Metabolic Panel; Complete Time: 02:47 EDIN 03/12 00:46 Order name: EKG; Complete Time: 00:47 rn 03/12 00:46 Order name: Cardiac monitoring; Complete Time: 01: rn 03/12 00:46 Order name: EKG - Nurse/Tech; Complete Time: 01: rn 03/12 00:46 Order name: IV Saline Lock; Complete Time: 01: rn 03/12 00:46 Order name: Labs collected and sent; Complete Time: 01: rn 03/12 00:46 Order name: O2 Per Protocol; Complete Time: 01: rn 03/12 00:46 Order name: O2 Sat Monitoring; Complete Time: 01:01 rn Administered Medications: No medications were administered Disposition: 03/12/21 02:48 Discharged to Home. Impression: Chest pain, unspecified. - Condition is Stable. - Discharge Instructions: Nonspecific Chest Pain. - Medication Reconciliation Form, Thank You Letter, Antibiotic Education, Prescription Opioid Use form. - Follow up: Private Physician; When: As needed; Reason: Recheck today's complaints, Re-evaluation by your physician. - Problem is new. - Symptoms have improved. Signatures: Dispatcher [employer] Thierno Zaragoza RN RN em Nieto, Roman, MD MD rn Malcaba, Joseph, RN RN jm8 Corrections: (The following items were deleted from the chart) 03: 02:48 03/12/2021 02:48 Discharged to Home. Impression: Chest pain, unspecified. jm8 Condition is Stable. Forms are Medication Reconciliation Form, Thank You Letter, Antibiotic Education, Prescription Opioid Use. Follow up: Private Physician; When: As needed; Reason: Recheck today's complaints, Re-evaluation by your physician. Problem is new. Symptoms have improved. rn
[2021-03-12 03:22] VITALS: TEMP 97.7
[2021-03-12 03:23] VITALS: BP 105/74; O2SAT 98
--- NOTE | 2021-03-12 08:09 | RAD REPORT ---
EXAM DESCRIPTION: RAD - Chest Single View - 03/12/2021 1:26 am CLINICAL HISTORY: CHEST PAIN COMPARISON: Portable September 2019 TECHNIQUE: AP portable chest image was obtained 03/12/2021 1:26 am . FINDINGS: Lungs are clear. Heart and vasculature are normal. No measurable pleural effusion and no p neumothorax. No acute bony abnormality seen. No acute aortic findings suspected. IMPRESSION: No acute cardiopulmonary process. No suspicious change from comparison.
--- NOTE | 2021-03-12 08:20 | EKG ---
Test Date: 2021-03-12 Test Time: 00:52:41 Electrical Drafter: KAIDEN MEASUREMENT RESULTS: Intervals: Rate: 80 HI: 134 QRSD: 112 QT: 386 QTc: 445 [place]: P: 78 HI: 134 QRS: 78 T: 59 INTERPRETIVE STATEMENTS: Normal sinus rhythm Incomplete right bundle branch block Voltage criteria for left ventricular hypertrophy Abnormal ECG Compared to ECG 05/16/2020 23:10:19 Incomplete right bundle-branch block now present Sinus bradycardia no longer present Electronically Signed On 03-12-21 08:18:35 CDT by Edmund Rios
== END 2021-03-12 03:17 | disposition home or self-care (01) ==
LOC: ER 00:42
DX: R07.9 Chest pain, unspecified (principal); I10 Essential (primary) hypertension; Z88.0 Allergy status to penicillin
CPT/HCPCS: 36415; 71045; 80048; 84484; 85025; 93005

== ENCOUNTER 2021-03-25 05:03 | Emergency (ER) | payer SELFPAY ==
[2021-03-25] MEDS ORDERED: ONDANSETRON 4 MG/2 ML VIAL ONE (05:32)
[2021-03-25] MEDS ORDERED: NA CHLORIDE 0.9% 1,000 ML ONE (05:33)
[2021-03-25 05:48] LABS: Absolute Lymphocytes (CBC) 2.7 K/uL (0.7-4.9); Basophils % 0.2 % (0-1.3); Hematocrit 39.4 % (39.6-49.0); Lymphocytes % 18.7 % (15.3-44.8); MPV 8.6 fL (7.6-11.3); RBC Red Blood Cell Count 4.31 M/uL (4.33-5.43)
[2021-03-25 06:11] LABS: ALT/SGPT 19 U/L (12-78); AST/SGOT 12 U/L (15-37); Albumin 3.4 g/dL (3.4-5.0); Alkaline Phosphatase 93 U/L (45-117); BUN Blood Urea Nitrogen 13 mg/dL (7-18); Bicarbonate 29 mmol/L (21-32); Bilirubin Direct < 0.1 mg/dL (0-0.2); Bilirubin Total 0.2 mg/dL (0.2-1.0); Glucose Level 99 mg/dL (74-106); Lipase 49 U/L (73-393); Potassium 3.6 mmol/L (3.5-5.1); Protein, Total 6.9 g/dL (6.4-8.2); Sodium Level 143 mmol/L (136-145)
--- NOTE | 2021-03-25 07:04 | ER ---
Nurse's Notes [facility] Name: Karson Gant Age: 36 yrs Sex: Male : 1985 Arrival Date: 03/25/2021 Time: 05:05 Bed 14 Private MD: Diagnosis: Nausea Presentation: 03/25 05:05 Chief complaint: EMS states: abdominal pain and N/V that started while walking, denies em fever, also reports abdominal pain. Coronavirus screen: Client denies travel out of the [place] in the last 14 days. Ebola Screen: Patient negative for fever greater than or equal to 101.5 degrees Fahrenheit, and additional compatible Ebola Virus Disease symptoms Patient denies exposure to infectious person. Patient denies travel to an Ebola-affected area in the 21 days before illness onset. No symptoms or risks identified at this time. Initial Sepsis Screen: Does the patient meet any 2 criteria? No. Patient's initial sepsis screen is negative. Does the patient have a suspected source of infection? No. Patient's initial sepsis screen is negative. Risk Assessment: Do you want to hurt yourself or someone else? Patient reports no desire to harm self or others. Onset of symptoms was March 25, 2021. 05:05 Method Of Arrival: EMS: [facility] em 05:05 Acuity: BASIL 3 em Triage Assessment: 05:07 General: Appears in no apparent distress. uncomfortable, slender, unkempt, Behavior is em calm, cooperative, appropriate for age. Pain: Complains of pain in umbilical area Pain currently is 4 out of 10 on a pain scale. Pain began suddenly. Neuro: Level of Consciousness is awake, alert, obeys commands, Oriented to person, place, time, situation, Appropriate for age. Cardiovascular: Capillary refill < 3 seconds Patient's skin is warm and dry. Respiratory: Airway is patent Respiratory effort is even, unlabored, Respiratory pattern is regular, symmetrical. GI: Abdomen is flat, Abd is soft X 4 quads Abdomen is tender to palpation in abdomen diffusely Reports nausea, vomiting. Derm: Skin is intact, is healthy with good turgor, Skin is pink, warm \T\ dry. Musculoskeletal: Capillary refill < 3 seconds, Range of motion: intact in all extremities. Historical: - Allergies: 05:06 PENICILLINS; em - PMHx: 05:06 Hypertension; Hypothyroidism; em - PSHx: 05:06 None; em - Immunization history:: Adult Immunizations not up to date. - Social history:: Smoking status: Patient reports the use of cigarette tobacco products, smokes one pack cigarettes per day. - Family history:: not pertinent. Screenin:09 Abuse screen: Denies threats or abuse. Nutritional screening: No deficits noted. em Tuberculosis screening: No symptoms or risk factors identified. Fall Risk None identified. Assessment: 05:08 Reassessment: see triage note for assessment. em 06:04 Reassessment: Patient appears in no apparent distress at this time. No changes from ad5 previously documented assessment. Patient and/or family updated on plan of care and expected duration. Pain level reassessed. Patient is alert, oriented x 3, equal unlabored respirations, skin warm/dry/pink. 07:18 Reassessment: PT D/C HOME AMBULATORY, DX WITH NAUSEA. GI: No deficits noted. bp Vital Signs: 05:05 BP 140 / 108; Pulse 62; Resp 16; Temp 97.8; Pulse Ox 99% on R/A; Weight 58.97 kg; em Height 5 ft. 6 in. (167.64 cm); Pain 4/10; 06:05 BP 154 / 106; Pulse 54; Resp 15 S; Pulse Ox 100% on R/A; ad5 07:17 BP 151 / 95; Pulse 57; Resp 17; Temp 97.9; Pulse Ox 99% ; bp 05:05 Body Mass Index 20.98 (58.97 kg, 167.64 cm) em ED Course: 05:05 Patient arrived in ED. em 05:06 Triage completed. em 05:06 Arm band placed on. em 05:09 Patient has correct armband on for positive identification. Bed in low position. Call em light in reach. Side rails up X2. Pulse ox on. NIBP on. 05:10 Cristi Venegas is Primary Nurse. ad5 05:20 Debby Dunlap MD is Attending Physician. ma2 05:20 Initial lab(s) drawn, by me, sent to lab. ad5 05:28 Inserted saline lock: 20 gauge in left antecubital area, using aseptic technique. Blood ad5 collected. 07:18 No provider procedures requiring assistance completed. IV discontinued, intact, bp bleeding controlled, No redness/swelling at site. Pressure dressing applied. Administered Medications: 05:20 Drug: NS 0.9% 1000 ml Route: IV; Rate: 1 bolus; Site: left antecubital; ad5 07:20 Follow up: IV Status: Completed infusion; IV Intake: 1000ml bp 05:21 Drug: Zofran (Ondansetron) 4 mg Route: IVP; Site: left antecubital; ad5 05:58 Follow up: Response: No adverse reaction; Nausea is decreased ad5 Intake: 07:20 IV: 1000ml; Total: 1000ml. bp Outcome: 07:03 Discharge ordered by . benedicto 07:19 Discharged to home ambulatory. bp 07:19 Condition: stable 07:19 Discharge instructions given to patient, Instructed on discharge instructions, follow up and referral plans. medication usage, Demonstrated understanding of instructions, follow-up care, medications, Prescriptions given X 1. 07:21 Patient left the ED. bp Signatures: Thierno Osborne RN RN em Peltier, Brian, RN RN bp Alzahri, Mohammad, MD MD ma2 Davidson, Andrea ad5
--- NOTE | 2021-03-25 07:04 | EDPHYS ---
Physician Documentation [facility] Name: Karson Gant Age: 36 yrs Sex: Male : 1985 Arrival Date: 03/25/2021 Time: 05:05 Bed 14 Private MD: ED Physician Debby Dunlap HPI: 03/25 05:48 This 36 yrs old Male presents to ER via EMS with complaints of ma2 Nausea/Vomiting. 05:48 The patient presents to the emergency department with nausea, vomiting, diarrhea. ma2 Onset: The symptoms/episode began/occurred gradually, 2 day(s) ago. Associated signs and symptoms: Pertinent negatives: constipation, dysuria, fever, GI bleeding, hematuria. Severity of symptoms: At their worst the symptoms were mild in the emergency department the symptoms are unchanged. The patient has experienced similar episodes in the past. Historical: - Allergies: 05:06 PENICILLINS; em - PMHx: 05:06 Hypertension; Hypothyroidism; em - PSHx: 05:06 None; em - Immunization history:: Adult Immunizations not up to date. - Social history:: Smoking status: Patient reports the use of cigarette tobacco products, smokes one pack cigarettes per day. - Family history:: not pertinent. ROS: 05:48 Constitutional: Negative for fever, chills, and weight loss. ma2 05:48 All other systems are negative. Exam: 05:48 Constitutional: This is a well developed, well nourished patient who is awake, alert, ma2 and in no acute distress. Neck: Trachea midline, no thyromegaly or masses palpated, and no cervical lymphadenopathy. Supple, full range of motion without nuchal rigidity, or vertebral point tenderness. No Meningismus. Chest/axilla: Normal chest wall appearance and motion. Nontender with no deformity. No lesions are appreciated. Cardiovascular: Regular rate and rhythm with a normal S1 and S2. No gallops, murmurs, or rubs. Normal PMI, no JVD. No pulse deficits. Respiratory: Lungs have equal breath sounds bilaterally, clear to auscultation and percussion. No rales, rhonchi or wheezes noted. No increased work of breathing, no retractions or nasal flaring. Abdomen/GI: Soft, non-tender, with normal bowel sounds. No distension or tympany. No guarding or rebound. No evidence of tenderness throughout. MS/ Extremity: Pulses equal, no cyanosis. Neurovascular intact. Full, normal range of motion. Neuro: Awake and alert, GCS 15, oriented to person, place, time, and situation. Cranial nerves II-XII grossly intact. Motor strength 5/5 in all extremities. Sensory grossly intact. Cerebellar exam normal. Normal gait. Vital Signs: 05:05 BP 140 / 108; Pulse 62; Resp 16; Temp 97.8; Pulse Ox 99% on R/A; Weight 58.97 kg; em Height 5 ft. 6 in. (167.64 cm); Pain 4/10; 06:05 BP 154 / 106; Pulse 54; Resp 15 S; Pulse Ox 100% on R/A; ad5 07:17 BP 151 / 95; Pulse 57; Resp 17; Temp 97.9; Pulse Ox 99% ; bp 05:05 Body Mass Index 20.98 (58.97 kg, 167.64 cm) em MDM: 05:48 Differential diagnosis: gastritis, pancreatitis, viral gastroenteritis, ma2 gastroenteritis. Data reviewed: vital signs, nurses notes. Counseling: I had a detailed discussion with the patient and/or guardian regarding: the historical points, exam findings, and any diagnostic results supporting the discharge/admit diagnosis, the presence of at least one elevated blood pressure reading (>120/80) during this emergency department visit, the need for outpatient follow up. Response to treatment: the patient's symptoms have markedly improved after treatment. 07:03 Patient medically screened. ma2 03/25 05:10 Order name: Basic Metabolic Panel; Complete Time: 06:12 em 03/25 05:10 Order name: CBC with Diff; Complete Time: 06:12 em 03/25 05:10 Order name: Hepatic Function; Complete Time: 06:12 em 03/25 05:10 Order name: Lipase; Complete Time: 06:12 em 03/25 05:10 Order name: IV Saline Lock; Complete Time: :28 em 03/25 05:10 Order name: Labs collected and sent; Complete Time: :28 em Administered Medications: 05:20 Drug: NS 0.9% 1000 ml Route: IV; Rate: 1 bolus; Site: left antecubital; ad5 07:20 Follow up: IV Status: Completed infusion; IV Intake: 1000ml bp 05:21 Drug: Zofran (Ondansetron) 4 mg Route: IVP; Site: left antecubital; ad5 05:58 Follow up: Response: No adverse reaction; Nausea is decreased ad5 Disposition Summary: 03/25/21 07:03 Discharge Ordered Location: Home ma2 Condition: Stable ma2 Diagnosis - Nausea ma2 Followup: ma2 - With: Private Physician - When: Tomorrow - Reason: If symptoms return, Continuance of care Discharge Instructions: - Discharge Summary Sheet ma2 - Nausea and Vomiting, Adult ma2 - Nausea, Adult ma2 Forms: - Medication Reconciliation Form ma2 - Thank You Letter ma2 - Antibiotic Education ma2 - Prescription Opioid Use ma2 Prescriptions: - Zofran 4 mg Oral Tablet - take 1 tablet by ORAL route every 12 hours As needed; 20 tablet; Refills: 0, ma2 Product Selection Permitted Signatures: Dispatcher [employer] Thierno Zaragoza, RN RN Debby Ramos MD MD ma2 Cristi Venegas Brian RN bp
[2021-03-25 07:37] VITALS: BP 151/95; TEMP 97.9; O2SAT 99
== END 2021-03-25 07:21 | disposition home or self-care (01) ==
LOC: ER 05:03
DX: R11.0 Nausea (principal); I10 Essential (primary) hypertension; F17.210 Nicotine dependence, cigarettes, uncomplicated; Z88.0 Allergy status to penicillin
CPT/HCPCS: 36415; 80048; 80076; 83690; 85025; J2405; J7030

== ENCOUNTER 2021-03-26 05:52 | Emergency (ER) | payer SELFPAY ==
[2021-03-26] MEDS ORDERED: HYDROCODONE/APAP 5/325 MG TAB ONE (06:32)
--- NOTE | 2021-03-26 06:38 | ER ---
Nurse's Notes [facility] Name: Karson Gant Age: 36 yrs Sex: Male : 1985 Arrival Date: 03/26/2021 Time: 05:53 Bed 14 Private MD: Diagnosis: Chest pain on breathing-chest wall pain Presentation: 03/26 06:00 Chief complaint: EMS states: Pt BIB EMS for c/o pain to lower back, chest while ad5 walking. Pt reports pain intermittent, describes as dull. Pt denies other s/s, was in ED yesterday for abd pain and sent home with RX unable to fill after discharge. Pt resp even/unlabored, skin pwd. VSS. Coronavirus screen: At this time, the client does not indicate any symptoms associated with coronavirus-19. Ebola Screen: No symptoms or risks identified at this time. Initial Sepsis Screen: Does the patient meet any 2 criteria? No. Patient's initial sepsis screen is negative. Does the patient have a suspected source of infection? No. Patient's initial sepsis screen is negative. Risk Assessment: Do you want to hurt yourself or someone else? Patient reports no desire to harm self or others. Onset of symptoms was March 26, 2021. 06:00 Method Of Arrival: EMS ad5 06:00 Acuity: BASIL 3 ad5 Historical: - Allergies: 06:02 PENICILLINS; ad5 - PMHx: 06:02 Hypertension; Hypothyroidism; ad5 - PSHx: 06:02 "tear duct"; ad5 - Immunization history:: Adult Immunizations unknown. - Social history:: Smoking status: unknown. - Family history:: not pertinent. Screenin:04 Abuse screen: Denies threats or abuse. Denies injuries from another. Nutritional ad5 screening: No deficits noted. Tuberculosis screening: No symptoms or risk factors identified. Fall Risk None identified. Assessment: 06:02 General: Appears in no apparent distress. Behavior is calm, cooperative, appropriate ad5 for age. Pain: Complains of pain in chest, lower back. Neuro: No deficits noted. Level of Consciousness is awake, alert, obeys commands, Oriented to person, place, time, situation, Appropriate for age. Cardiovascular: Reports chest pain, Heart tones present Capillary refill < 3 seconds Patient's skin is warm and dry. Pulses are all present. Rhythm is regular. Respiratory: No deficits noted. Airway is patent Respiratory effort is even, unlabored, Respiratory pattern is regular, symmetrical. GI: No deficits noted. No signs and/or symptoms were reported involving the gastrointestinal system. : No deficits noted. No signs and/or symptoms were reported regarding the genitourinary system. Derm: Skin is pink, warm \\T\\ dry. 06:52 Reassessment: Patient appears in no apparent distress at this time. Patient and/or ad5 family updated on plan of care and expected duration. Pain level reassessed. Patient is alert, oriented x 3, equal unlabored respirations, skin warm/dry/pink. Vital Signs: 06:00 BP 138 / 106; Pulse 58; Resp 16 S; Temp 98.0; Pulse Ox 100% on R/A; Weight 65.77 kg; ad5 Height 5 ft. 6 in. (167.64 cm); Pain 3/10; 06:51 BP 130 / 102; Pulse 61; Resp 16 S; Pulse Ox 98% on R/A; ad5 06:00 Body Mass Index 23.40 (65.77 kg, 167.64 cm) ad5 ED Course: 05:53 Patient arrived in ED. em 06:00 Cristi Venegas is Primary Nurse. ad5 06:01 Debby Dunlap MD is Attending Physician. ma2 06:02 Triage completed. ad5 06:02 Arm band placed on right wrist. ad5 06:02 EKG completed in triage. Results shown to MD. ad5 06:04 EKG done, by ED staff, reviewed by Debby Dunlap MD. Patient maintains SpO2 ad5 saturation greater than 95% on room air. 06:52 No provider procedures requiring assistance completed. Patient did not have IV access ad5 during this emergency room visit. Administered Medications: 06:12 Drug: HYDROcodone-acetaminophen 5 mg-325 mg 2 tabs Route: PO; ad5 06:51 Follow up: BP 130 / 102; Pulse 61 bpm; Resp 16 bpm Spontaneous; Pulse Ox 98% RA; ad5 Response: No adverse reaction Outcome: 06:37 Discharge ordered by . ma2 06:52 Discharged to home ambulatory. ad5 06:52 Condition: stable 06:52 Discharge instructions given to patient, Instructed on discharge instructions, follow up and referral plans. Demonstrated understanding of instructions, follow-up care. 06:52 Patient left the ED. ad5 Signatures: Thierno Osborne, RN RN em Debby Dunlap MD MD ma2 Cristi Venegas ad5
--- NOTE | 2021-03-26 06:38 | EDPHYS ---
Physician Documentation [facility] Name: Karson Gant Age: 36 yrs Sex: Male : 1985 Arrival Date: 03/26/2021 Time: 05:53 Bed 14 Private MD: ED Physician Debby Dunlap HPI: 03/26 06:35 This 36 yrs old Male presents to ER via EMS with complaints of Chest wall ma2 Pain. 06:35 Associated signs and symptoms: Pertinent negatives: abdominal pain, diaphoresis, ma2 headache, lower extremity swelling, lightheadedness. Severity of pain: At its worst the pain was very mild in the emergency department the pain is unchanged. The patient has experienced similar episodes in the past. constant chest wall pain for few weeks, worse with chest twisting and movememnt and deep breath . Historical: - Allergies: 06:02 PENICILLINS; ad5 - PMHx: 06:02 Hypertension; Hypothyroidism; ad5 - PSHx: 06:02 "tear duct"; ad5 - Immunization history:: Adult Immunizations unknown. - Social history:: Smoking status: unknown. - Family history:: not pertinent. ROS: 06:35 Constitutional: Negative for fever, chills, and weight loss. ma2 06:35 All other systems are negative. Exam: 06:35 Constitutional: This is a well developed, well nourished patient who is awake, alert, ma2 and in no acute distress. Eyes: Pupils equal round and reactive to light, extra-ocular motions intact. Lids and lashes normal. Conjunctiva and sclera are non-icteric and not injected. Cornea within normal limits. Periorbital areas with no swelling, redness, or edema. ENT: Nares patent. No nasal discharge, no septal abnormalities noted. Tympanic membranes are normal and external auditory canals are clear. Oropharynx with no redness, swelling, or masses, exudates, or evidence of obstruction, uvula midline. Mucous membranes moist. Neck: Trachea midline, no thyromegaly or masses palpated, and no cervical lymphadenopathy. Supple, full range of motion without nuchal rigidity, or vertebral point tenderness. No Meningismus. Chest/axilla: chest wall pain reproducible on exam.. Normal chest wall appearance and motion. Nontender with no deformity. No lesions are appreciated. Cardiovascular: Regular rate and rhythm with a normal S1 and S2. No gallops, murmurs, or rubs. Normal PMI, no JVD. No pulse deficits. Respiratory: Lungs have equal breath sounds bilaterally, clear to auscultation and percussion. No rales, rhonchi or wheezes noted. No increased work of breathing, no retractions or nasal flaring. Abdomen/GI: Soft, non-tender, with normal bowel sounds. No distension or tympany. No guarding or rebound. No evidence of tenderness throughout. Vital Signs: 06:00 BP 138 / 106; Pulse 58; Resp 16 S; Temp 98.0; Pulse Ox 100% on R/A; Weight 65.77 kg; ad5 Height 5 ft. 6 in. (167.64 cm); Pain 3/10; 06:51 BP 130 / 102; Pulse 61; Resp 16 S; Pulse Ox 98% on R/A; ad5 06:00 Body Mass Index 23.40 (65.77 kg, 167.64 cm) ad5 MDM: 06:01 Patient medically screened. ma2 06:35 Differential diagnosis: anxiety, chest wall pain, esophagitis, gastroesophageal reflux ma2 disease (GERD). SOTO Risk Score: not applicable. Data reviewed: vital signs, nurses notes. Data reviewed: lab test result(s), EKG. Counseling: I had a detailed discussion with the patient and/or guardian regarding: the historical points, exam findings, and any diagnostic results supporting the discharge/admit diagnosis, the presence of at least one elevated blood pressure reading (>120/80) during this emergency department visit, the need for outpatient follow up. ED course: ekg wnl . Administered Medications: 06:12 Drug: HYDROcodone-acetaminophen 5 mg-325 mg 2 tabs Route: PO; ad5 06:51 Follow up: BP 130 / 102; Pulse 61 bpm; Resp 16 bpm Spontaneous; Pulse Ox 98% RA; ad5 Response: No adverse reaction Disposition Summary: 03/26/21 06:37 Discharge Ordered Location: Home ma2 Condition: Stable ma2 Diagnosis - Chest pain on breathing - chest wall pain ma2 Followup: ma2 - With: Private Physician - When: Tomorrow - Reason: If symptoms return, Continuance of care Discharge Instructions: - Discharge Summary Sheet ma2 - Chest Wall Pain ma2 Forms: - Medication Reconciliation Form ma2 - Thank You Letter ma2 - Antibiotic Education ma2 - Prescription Opioid Use ma2 Prescriptions: - Diclofenac Sodium 75 mg Oral Tablet Sustained Release - take 1 tablet by ORAL route 2 times per day; 30 tablet; Refills: 0, Product ma2 Selection Permitted Signatures: Debby Dunlap MD MD ma2 Cristi Venegas
[2021-03-26 06:58] VITALS: TEMP 98
[2021-03-26 07:00] VITALS: BP 130/102; O2SAT 98
--- NOTE | 2021-03-27 06:21 | EKG ---
Test Date: 2021-03-26 Test Time: 05:55:15 Concrete Worker: KAIDEN MEASUREMENT RESULTS: Intervals: Rate: 60 TX: 112 QRSD: 106 QT: 410 QTc: 410 Ralph: P: 48 TX: 112 QRS: 67 T: 63 INTERPRETIVE STATEMENTS: Normal sinus rhythm RSR' or QR pattern in V1 suggests right ventricular conduction delay Borderline ECG Compared to ECG 03/12/2021 00:52:41 RSR' in V1 or V2 now present Incomplete right bundle-branch block no longer present Left ventricular hypertrophy no longer present Electronically Signed On 03-27-21 06:18:00 CDT by Edmund Rios
== END 2021-03-26 06:52 | disposition home or self-care (01) ==
LOC: ER 05:52
DX: R07.89 Other chest pain (principal); I10 Essential (primary) hypertension; Z88.0 Allergy status to penicillin
CPT/HCPCS: 93005; 99284

== ENCOUNTER 2021-06-17 21:00 | Emergency (ER) | payer SELFPAY ==
--- NOTE | 2021-06-17 22:08 | ER ---
Nurse's Notes [facility] Name: Karson Gant Age: 36 yrs Sex: Male : 1985 Arrival Date: 06/17/2021 Time: 21:09 Bed 10 Private MD: Diagnosis: Presentation: 06/17 21:09 Chief complaint: Patient states: Pt states "dehydration". Coronavirus screen: Client df1 denies travel out of the [place] in the last 14 days. The client reports previous COVID testing was negative. Ebola Screen: Patient negative for fever greater than or equal to 101.5 degrees Fahrenheit, and additional compatible Ebola Virus Disease symptoms. Initial Sepsis Screen: Does the patient meet any 2 criteria? No. Patient's initial sepsis screen is negative. Risk Assessment: Do you want to hurt yourself or someone else? Patient reports no desire to harm self or others. Onset of symptoms was June 17, 2021. 21:09 Method Of Arrival: EMS: [facility] df1 21:09 Acuity: BASIL 4 df1 21:16 Note Pt arrived EMS found lying on sidewalk stating he is "dehydrated" and lower back df1 pain. States he is homeless. Pt calm and cooperative. 21:16 Acuity: BASIL 4 df1 21:45 Chief complaint:. df1 Triage Assessment: 21:15 General: Appears. Pain: Complains of pain in back Pain currently is 7 out of 10 on a df1 pain scale. Historical: - Allergies: 21:12 PENICILLINS; df1 - Home Meds: 21:12 None [Active]; df1 - PMHx: 21:12 Hypertension; Hypothyroidism; df1 - PSHx: 21:12 "tear duct"; df1 - Immunization history:: Client reports receiving the 1st dose of the Covid vaccine. - Social history:: Smoking status: Patient reports the use of cigarette tobacco products, smokes one-half pack cigarettes per day, smokes one pack cigarettes per day. Patient uses street drugs, Patient/guardian denies using The patient lives homeless. Vital Signs: 21:09 BP 127 / 97; Pulse 70; Resp 18; Temp 97.9; Pulse Ox 100% on R/A; Weight 61.23 kg; df1 Height 5 ft. 6 in. (167.64 cm); Pain 7/10; 21:09 Body Mass Index 21.79 (61.23 kg, 167.64 cm) df1 ED Course: 21:09 Patient arrived in ED. df1 21:12 Triage completed. df1 21:33 Uriel Arango PA is PHCP. sisi 21:34 Kris Echevarria MD is Attending Physician. jmm 22:08 Patient's name was called from ER lobby. No response. kg Administered Medications: No medications were administered Outcome: 22:08 Patient left the ED. kg 22:11 Patient left the ED. wg Signatures: Uriel Arango PA PA jmm Graham, Kristen, RN RN Jayy Duncan, SALUD Xin Zavala df1
[2021-06-17 22:48] VITALS: BP 127/97; TEMP 97.9; O2SAT 100
[2021-06-18] MEDS ORDERED: NA CHLORIDE 0.9% 2,000 ML ONE (00:17)
== END 2021-06-17 22:11 | disposition left against medical advice (07) ==
LOC: ER 21:00
DX: E86.0 Dehydration (principal); Z88.0 Allergy status to penicillin; Z53.21 Procedure and treatment not carried out due to patient leaving prior to being seen by health care provider
CPT/HCPCS: 99282

== ENCOUNTER 2021-06-17 23:31 | Emergency (ER) | payer SELFPAY ==
[2021-06-18 00:28] LABS: Absolute Lymphocytes (CBC) 1.5 K/uL (0.7-4.9); Basophils % 0.2 % (0-1.3); Hematocrit 40.4 % (39.6-49.0); MPV 8.8 fL (7.6-11.3)
[2021-06-18 01:01] LABS: ALT/SGPT 24 U/L (12-78); AST/SGOT 20 U/L (15-37); Albumin 3.8 g/dL (3.4-5.0); Alkaline Phosphatase 95 U/L (45-117); BUN Blood Urea Nitrogen 16 mg/dL (7-18); Bicarbonate 25 mmol/L (21-32); Bilirubin Direct 0.2 mg/dL (0-0.2); Bilirubin Total 0.7 mg/dL (0.2-1.0); CKMB Creatine Kinase MB 1.5 ng/mL (1.0-3.6); Creatine Phosphokinase 138 U/L (39-308); Glucose Level 119 mg/dL (74-106); Potassium 3.3 mmol/L (3.5-5.1); Protein, Total 7.5 g/dL (6.4-8.2); Sodium Level 139 mmol/L (136-145); Troponin (Emerg Dept Use Only) < 0.02 ng/mL (0.0-0.045)
--- NOTE | 2021-06-18 01:03 | ER ---
Nurse's Notes [facility] Name: Karson Gant Age: 36 yrs Sex: Male : 1985 Arrival Date: 06/17/2021 Time: 23:32 Bed 11 Private MD: Diagnosis: Weakness;Heat exhaustion, unspecified;Hypokalemia Presentation: 06/17 23:35 Chief complaint: Patient states: dehydration. Coronavirus screen: Vaccine status: df1 Patient reports being unvaccinated. Ebola Screen: Patient negative for fever greater than or equal to 101.5 degrees Fahrenheit, and additional compatible Ebola Virus Disease symptoms. Initial Sepsis Screen: Does the patient meet any 2 criteria? No. Patient's initial sepsis screen is negative. Risk Assessment: Do you want to hurt yourself or someone else? Patient reports no desire to harm self or others. Onset of symptoms was June 16, 2021. 23:35 Method Of Arrival: EMS: [facility] df1 23:35 Acuity: BASIL 4 df1 06/18 00:17 Initial Sepsis Screen: Does the patient have a suspected source of infection? No. bc5 Patient's initial sepsis screen is negative. Triage Assessment: 00:17 General: Appears in no apparent distress. Behavior is calm, cooperative, appropriate bc5 for age. Pain: Denies pain. Historical: - Allergies: 06/17 23:37 PENICILLINS; df1 - Home Meds: 23:37 None [Active]; df1 - PMHx: 23:37 Hypertension; Hypothyroidism; df1 - PSHx: 23:37 "tear duct"; df1 - Immunization history:: Adult Immunizations up to date, Client reports receiving the 1st dose of the Covid vaccine. - Social history:: Smoking status: Patient reports the use of cigarette tobacco products, smokes one pack cigarettes per day. - Family history:: not pertinent. Screenin/23 00:16 Abuse screen: Denies threats or abuse. Denies injuries from another. Nutritional bc5 screening: No deficits noted. Tuberculosis screening: No symptoms or risk factors identified. Fall Risk None identified. Vital Signs: 06/17 23:35 BP 111 / 81; Pulse 65; Resp 18; Temp 98.4; Pulse Ox 100% ; Weight 60.78 kg; Height 5 df1 ft. 6 in. (167.64 cm); Pain 7/10; 06/18 01:29 BP 121 / 58; Pulse 65; Resp 14; Temp 98.5(O); Pulse Ox 100% on R/A; Pain 5/10; bc5 06/17 23:35 Body Mass Index 21.63 (60.78 kg, 167.64 cm) df1 ED Course: 06/17 23:32 Patient arrived in ED. mr 23:33 Kris Echevarria MD is Attending Physician. [facility] 23:37 Triage completed. df1 23:51 Jie Acevedo, RN is Primary Nurse. bc5 06/18 00:05 XRAY Chest (1 view) In Process Unspecified. EDMS 00:17 Arm band placed on right wrist. bc5 00:17 Patient has correct armband on for positive identification. Bed in low position. Call bc5 light in reach. 00:17 No provider procedures requiring assistance completed. Inserted saline lock: 20 gauge bc5 in left forearm, using aseptic technique. 01:30 IV discontinued, intact, bleeding controlled, No redness/swelling at site. Pressure bc5 dressing applied. Administered Medications: 00:18 Drug: NS 0.9% 1000 ml Route: IV; Rate: 1 bolus; Site: left forearm; bc5 01:30 Follow up: IV Status: Completed infusion bc5 00:18 Drug: NS 0.9% 1000 ml Route: IV; Rate: 1 bolus; Site: left forearm; bc5 01:31 Follow up: IV Status: Completed infusion bc5 01:29 Drug: Potassium Effervescent Tablet 25 mEq Route: PO; bc5 01:31 Follow up: Response: Medication administered at discharge. bc5 01:29 Drug: Motrin (ibuprofen) 600 mg Route: PO; bc5 01:31 Follow up: Response: Medication administered at discharge. bc5 Outcome: 01:03 Discharge ordered by . [facility] 01:30 Discharged to home ambulatory. bc5 01:30 Condition: stable 01:30 Discharge instructions given to patient, Instructed on discharge instructions, follow up and referral plans. 01:31 Patient left the ED. bc5 Signatures: Dispatcher [employer] EDMS Kris Echevarria MD MD cha Rivera, Mary mr Jie Acevedo, RN RN 5 Xin Zavala df1
--- NOTE | 2021-06-18 01:03 | EDPHYS ---
Physician Documentation [facility] Name: Karson Gant Age: 36 yrs Sex: Male : 1985 Arrival Date: 06/17/2021 Time: 23:32 Bed 11 Private MD: ED Physician Kris Echevarria HPI: 06/18 00:56 This 36 yrs old Male presents to ER via EMS with complaints of Dehydration. esperanza 00:56 IN HEAT ALL DAY, FEELS DEHYDRATED. Onset: The symptoms/episode began/occurred esperanza yesterday. Severity of symptoms: At their worst the symptoms were mild in the emergency department the symptoms are unchanged. The patient has experienced similar episodes in the past. Historical: - Allergies: 06/17 23:37 PENICILLINS; df1 - Home Meds: 23:37 None [Active]; df1 - PMHx: 23:37 Hypertension; Hypothyroidism; df1 - PSHx: 23:37 "tear duct"; df1 - Immunization history:: Adult Immunizations up to date, Client reports receiving the 1st dose of the Covid vaccine. - Social history:: Smoking status: Patient reports the use of cigarette tobacco products, smokes one pack cigarettes per day. - Family history:: not pertinent. ROS: 06/18 00:56 Constitutional: Negative for fever, chills, and weight loss, Eyes: Negative for injury, esperanza pain, redness, and discharge, ENT: Negative for injury, pain, and discharge, Neck: Negative for injury, pain, and swelling, Cardiovascular: Negative for chest pain, palpitations, and edema, Respiratory: Negative for shortness of breath, cough, wheezing, and pleuritic chest pain, Abdomen/GI: Negative for abdominal pain, nausea, vomiting, diarrhea, and constipation, Back: Negative for injury and pain, : Negative for injury, bleeding, discharge, and swelling, MS/Extremity: Negative for injury and deformity, Skin: Negative for injury, rash, and discoloration, Neuro: Negative for headache, weakness, numbness, tingling, and seizure, Psych: Negative for depression, anxiety, suicide ideation, homicidal ideation, and hallucinations, Allergy/Immunology: Negative for hives, rash, and allergies, Endocrine: Negative for neck swelling, polydipsia, polyuria, polyphagia, and marked weight changes, Hematologic/Lymphatic: Negative for swollen nodes, abnormal bleeding, and unusual bruising. Exam: 00:56 Constitutional: This is a well developed, well nourished patient who is awake, alert, esperanza and in no acute distress. Head/Face: Normocephalic, atraumatic. Eyes: Pupils equal round and reactive to light, extra-ocular motions intact. Lids and lashes normal. Conjunctiva and sclera are non-icteric and not injected. Cornea within normal limits. Periorbital areas with no swelling, redness, or edema. ENT: Nares patent. No nasal discharge, no septal abnormalities noted. Tympanic membranes are normal and external auditory canals are clear. Oropharynx with no redness, swelling, or masses, exudates, or evidence of obstruction, uvula midline. Mucous membranes moist. Neck: Trachea midline, no thyromegaly or masses palpated, and no cervical lymphadenopathy. Supple, full range of motion without nuchal rigidity, or vertebral point tenderness. No Meningismus. Chest/axilla: Normal chest wall appearance and motion. Nontender with no deformity. No lesions are appreciated. Cardiovascular: Regular rate and rhythm with a normal S1 and S2. No gallops, murmurs, or rubs. Normal PMI, no JVD. No pulse deficits. Respiratory: Lungs have equal breath sounds bilaterally, clear to auscultation and percussion. No rales, rhonchi or wheezes noted. No increased work of breathing, no retractions or nasal flaring. Abdomen/GI: Soft, non-tender, with normal bowel sounds. No distension or tympany. No guarding or rebound. No evidence of tenderness throughout. Back: No spinal tenderness. No costovertebral tenderness. Full range of motion. Male : Normal genitalia with no discharge or lesions. Skin: Warm, dry with normal turgor. Normal color with no rashes, no lesions, and no evidence of cellulitis. MS/ Extremity: Pulses equal, no cyanosis. Neurovascular intact. Full, normal range of motion. Neuro: Awake and alert, GCS 15, oriented to person, place, time, and situation. Cranial nerves II-XII grossly intact. Motor strength 5/5 in all extremities. Sensory grossly intact. Cerebellar exam normal. Normal gait. Psych: Awake, alert, with orientation to person, place and time. Behavior, mood, and affect are within normal limits. 00:56 ECG was reviewed by the Attending Physician. Vital Signs: 06/17 23:35 BP 111 / 81; Pulse 65; Resp 18; Temp 98.4; Pulse Ox 100% ; Weight 60.78 kg; Height 5 df1 ft. 6 in. (167.64 cm); Pain 7/10; 06/18 01:29 BP 121 / 58; Pulse 65; Resp 14; Temp 98.5(O); Pulse Ox 100% on R/A; Pain 5/10; bc5 06/17 23:35 Body Mass Index 21.63 (60.78 kg, 167.64 cm) df1 MDM: 06/17 23:38 Patient medically screened. [facility] 06/18 00:59 Data reviewed: vital signs, nurses notes, lab test result(s), EKG, radiologic studies, esperanza plain films. Data reviewed: lab test result(s), EKG, radiologic studies. Data interpreted: groundwater monitoring technician: rate is 65 beats/min, rhythm is regular, Pulse oximetry: on room air is 100 %. Test interpretation: by ED physician or midlevel provider: ECG, plain radiologic studies. Counseling: I had a detailed discussion with the patient and/or guardian regarding: the historical points, exam findings, and any diagnostic results supporting the discharge/admit diagnosis, lab results, radiology results, the need for outpatient follow up, for definitive care, a family practitioner. 06/17 23:34 Order name: Basic Metabolic Panel; Complete Time: 01:05 [facility] 06/17 23:34 Order name: CBC with Diff; Complete Time: 00:50 [facility] 06/17 23:34 Order name: LFT's; Complete Time: 01:05 [facility] 06/17 23:34 Order name: Magnesium; Complete Time: 01:05 [facility] 06/17 23:34 Order name: Troponin (emerg Dept Use Only); Complete Time: 01:05 [facility] 06/17 23:34 Order name: CK; Complete Time: 01:05 [facility] 06/17 23:34 Order name: XRAY Chest (1 view) [facility] 06/17 23:34 Order name: EKG; Complete Time: 23:35 [facility] 06/17 23:34 Order name: Ckmb; Complete Time: 01:05 [facility] 06/18 01:01 Order name: Diet Regular; Complete Time: 01:01 [facility] 06/17 23:34 Order name: Cardiac monitoring; Complete Time: 00:00 [facility] 06/17 23:34 Order name: EKG - Nurse/Tech; Complete Time: 00:29 [facility] 06/17 23:34 Order name: IV Saline Lock; Complete Time: 00:00 [facility] 06/17 23:34 Order name: Labs collected and sent; Complete Time: 00:00 [facility] 06/17 23:34 Order name: O2 Per Protocol; Complete Time: 23:51 [facility] 06/17 23:34 Order name: O2 Sat Monitoring; Complete Time: 23:51 [facility] 06/17 23:34 Order name: Urine Dipstick-Ancillary (obtain specimen) [facility] EC:56 Rate is 59 beats/min. Rhythm is regular. QRS [place] is Normal. ND interval is normal. QRS esperanza interval is normal. QT interval is normal. No Q waves. T waves are Normal. No ST changes noted. Clinical impression: Normal ECG and No evidence of ischemia. Interpreted by me. Reviewed by me. Administered Medications: 00:18 Drug: NS 0.9% 1000 ml Route: IV; Rate: 1 bolus; Site: left forearm; bc5 01:30 Follow up: IV Status: Completed infusion bc5 00:18 Drug: NS 0.9% 1000 ml Route: IV; Rate: 1 bolus; Site: left forearm; bc5 01:31 Follow up: IV Status: Completed infusion bc5 01:29 Drug: Potassium Effervescent Tablet 25 mEq Route: PO; bc5 01:31 Follow up: Response: Medication administered at discharge. bc5 01:29 Drug: Motrin (ibuprofen) 600 mg Route: PO; bc5 01:31 Follow up: Response: Medication administered at discharge. 5 Disposition Summary: 06/18/21 01:03 Discharge Ordered Location: Home esperanza Problem: new esperanza Symptoms: have improved esperanza Condition: Stable esperanza Diagnosis - Weakness esperanza - Heat exhaustion, unspecified esperanza - Hypokalemia esperanza Followup: esperanza - With: Private Physician - When: 2 - 3 days - Reason: Recheck today's complaints, Continuance of care, Re-evaluation by your physician Discharge Instructions: - Discharge Summary Sheet esperanza - Potassium Content of Foods esperanza - Weakness esperanza - Heat Exhaustion esperanza - Weakness, Wksk-er-Lunc esperanza - Hypokalemia esperanza Forms: - Medication Reconciliation Form esperanza - Thank You Letter esperanza - Antibiotic Education esperanza - Prescription Opioid Use esperanza Signatures: Dispatcher [employer] Kris Trinh MD MD cha Corado, Bella RN RN [id number] Xin Zavala df1
[2021-06-18] MEDS ORDERED: POTASSIUM 25 MEQ EFFERV TAB ONE (01:43)
[2021-06-18] MEDS ORDERED: IBUPROFEN 400 MG TAB ONE (01:43)
[2021-06-18] MEDS ORDERED: IBUPROFEN 200 MG TAB PO ONE (01:43)
[2021-06-18 02:35] VITALS: O2SAT 100
[2021-06-18 02:36] VITALS: BP 121/58; TEMP 98.5
--- NOTE | 2021-06-18 07:24 | RAD REPORT ---
EXAM DESCRIPTION: Sadiq Single View06/18/2021 12:05 am CLINICAL HISTORY: cough COMPARISON: 2019 FINDINGS: The lungs appear clear of acute infiltrate. The heart is normal size IMPRESSION: No acute abnormalities displayed
== END 2021-06-18 01:31 | disposition home or self-care (01) ==
LOC: ER 23:31
DX: E87.6 Hypokalemia (principal); T67.5XXA Heat exhaustion, unspecified, initial encounter; I10 Essential (primary) hypertension; Z88.0 Allergy status to penicillin; F17.210 Nicotine dependence, cigarettes, uncomplicated
CPT/HCPCS: 36415; 71045; 80048; 80076; 82550; 82553; 83735; 84484; 85025; 93005; 96360; 99284

== ENCOUNTER 2022-04-23 09:30 | Inpatient (IN) | payer SELFPAY ==
[2022-04-23] MEDS ORDERED: ONDANSETRON 4 MG/2 ML VIAL ONE (10:31)
[2022-04-23] MEDS ORDERED: NA CHLORIDE 0.9% 1,000 ML ONE ×2 (10:32→13:37)
[2022-04-23] MEDS ORDERED: FAMOTIDINE 20 MG/2 ML VIAL IV ONE (10:32)
[2022-04-23 10:39] LABS: Absolute Lymphocytes (CBC) 1.6 K/uL (0.7-4.9); Hematocrit 49.2 % (39.6-49.0); Lymphocytes % 9.1 % (15.3-44.8); MPV 9.8 fL (7.6-11.3); RBC Red Blood Cell Count 5.47 M/uL (4.33-5.43)
[2022-04-23 10:40] LABS: Albumin 5.8 g/dL (3.4-5.0); Bilirubin Total 1.2 mg/dL (0.2-1.0); Potassium 4.2 mmol/L (3.5-5.1); Protein, Total 10.7 g/dL (6.4-8.2)
--- NOTE | 2022-04-23 11:59 | RAD REPORT ---
EXAM DESCRIPTION: RAD - Neck Soft Tissue - 04/23/2022 11:49 am CLINICAL HISTORY: SORE THROAT COMPARISON: No comparisons FINDINGS/IMPRESSION: No acute fracture. Loss of the normal cervical lordosis. Age advanced degenerat cristin changes are present at the C5-6 level. Trace retrolisthesis is present as well as endplate spurri ng and disc height loss.
--- NOTE | 2022-04-23 12:52 | RAD REPORT ---
EXAM DESCRIPTION: CT - Abdomen Pelvis Wo Contrast - 04/23/2022 12:40 pm CLINICAL HISTORY: Abdominal pain. nausea/vomiting, diffuse abdominal pain COMPARISON: Abdomen Pelvis Wo Contrast dated 02/26/2021 TECHNIQUE: CT imaging of the abdomen and pelvis was performed without contrast. Solid organ, bowel a nd vascular assessment is limited due to lack of IV and oral contrast. All CT scans are performed using dose optimization technique as appropriate and may include automated exposure control or mA/KV adjustment according to patient size. FINDINGS: The lower lung be are clear. The liver, spleen, pancreas, adrenal glands and kidneys are within normal limits for a limited non-co ntrast examination. No bowel obstruction, free air, free fluid or abscess. Moderate stool is retained throughout the colo n. The appendix is not identified as a discrete structure, however, no secondary findings of appendic itis are identified. The osseous structures are within normal limits. IMPRESSION: No acute intra-abdominal or pelvic findings. A limited non-contrast examination was performed as detailed.
[2022-04-23 12:55] LABS: Platelet Estimate ADEQ; White Blood Cell Scan OK (OK)
[2022-04-23 12:57] LABS: Blood Morphology Comment NOT SEEN (NOT SEEN)
[2022-04-23 13:37] LABS: Urine Blood Trace-lysed (Negative); Urine Glucose Negative (Negative); Urine Protein Trace (Negative); Urine Specific Gravity >=1.030 (1.005-1.030); Urine pH 5.5 (5.0-7.0)
--- NOTE | 2022-04-23 14:04 | ER ---
Nurse's Notes [facility] Name: Karson Gant Age: 37 yrs Sex: Male : 1985 Arrival Date: 04/23/2022 Time: 09:42 Bed 5 Private MD: Diagnosis: Acute kidney failure, unspecified;Rhabdomyolysis Presentation: 04/23 09:52 Chief complaint: Patient states: dry heaving green bile X 4 hours , every 20 minutes. iw Coronavirus screen: At this time, the client does not indicate any symptoms associated with coronavirus-19. Ebola Screen: Patient negative for fever greater than or equal to 101.5 degrees Fahrenheit, and additional compatible Ebola Virus Disease symptoms Patient denies exposure to infectious person. Patient denies travel to an Ebola-affected area in the 21 days before illness onset. No symptoms or risks identified at this time. 09:52 Method Of Arrival: EMS: [facility] iw 09:52 Acuity: BASIL 3 iw 12:24 Initial Sepsis Screen: Does the patient meet any 2 criteria? No. Patient's initial ll1 sepsis screen is negative. Does the patient have a suspected source of infection? No. Patient's initial sepsis screen is negative. Risk Assessment: Do you want to hurt yourself or someone else? Patient reports no desire to harm self or others. Triage Assessment: 14:35 General: Appears uncomfortable, Behavior is cooperative, appropriate for age. GI: ll1 Reports nausea, vomiting. Historical: - Allergies: 09:58 PENICILLINS; iw - PMHx: 09:58 Hypertension; Hypothyroidism; iw - PSHx: 09:58 "tear duct"; iw - Immunization history:: Adult Immunizations. - Social history:: Smoking status: Patient denies any tobacco usage or history of. Screenin:23 Abuse screen: Denies threats or abuse. Nutritional screening: No deficits noted. ll1 Tuberculosis screening: No symptoms or risk factors identified. Fall Risk IV access (20 points). Total Blas Fall Scale indicates No Risk (0-24 pts). Assessment: 11:46 Reassessment: No changes from previously documented assessment. Patient and/or family iw updated on plan of care and expected duration. Pain level reassessed. 12:23 Reassessment: No changes from previously documented assessment. Patient and/or family ll1 updated on plan of care and expected duration. Pain level reassessed. Patient is alert, oriented x 3, equal unlabored respirations, skin warm/dry/pink. 13:41 Reassessment: Patient appears in no apparent distress at this time. Patient and/or hb family updated on plan of care and expected duration. Pain level reassessed. Patient is alert, oriented x 3, equal unlabored respirations, skin warm/dry/pink. 14:35 Reassessment: No changes from previously documented assessment. Patient and/or family ll1 updated on plan of care and expected duration. Pain level reassessed. Patient is alert, oriented x 3, equal unlabored respirations, skin warm/dry/pink. 15:15 Reassessment: No changes from previously documented assessment. Patient and/or family ll1 updated on plan of care and expected duration. Pain level reassessed. Patient is alert, oriented x 3, equal unlabored respirations, skin warm/dry/pink. 15:15 GI: Abdomen is flat. ll1 Vital Signs: 09:58 BP 128 / 88; Pulse 89; Resp 16; Temp 97.4; Pulse Ox 100% on R/A; iw 12:23 BP 128 / 90; Pulse 67; Resp 16; Pulse Ox 98% ; ll1 14:34 BP 130 / 75; Pulse 87; ll1 ED Course: 09:42 Patient arrived in ED. mr 09:46 Vi Davis, CHRISTIANA [facility]. jh7 09:46 Kris Echevarria MD is Attending Physician. jh7 09:53 Triage completed. iw 10:09 Inserted saline lock: 20 gauge in left antecubital area, using aseptic technique. iw 11:45 Arm band placed on Patient placed in an exam room, on a stretcher. iw 11:51 XRAY Neck Soft Tissue In Process Unspecified. EDMS 12:05 Jane Bundy, SALUD is Primary Nurse. ll1 12:42 CT Abd/Pelvis - Without Contrast In Process Unspecified. EDMS 14:03 Kasi Kim is Hospitalizing Provider. jh7 14:35 No provider procedures requiring assistance completed. Patient admitted, IV remains in ll1 place. 14:36 Patient has correct armband on for positive identification. Bed in low position. Call ll1 light in reach. Side rails up X 1. vat overhauler on. Pulse ox on. NIBP on. 15:20 IV discontinued, intact, bleeding controlled, No redness/swelling at site. Pressure 1 dressing applied. Administered Medications: 10:45 Drug: NS 0.9% 1000 ml Route: IV; Rate: 1 bolus; Site: left antecubital; iw 12:05 Follow up: Response: No adverse reaction; IV Status: Completed infusion; IV Intake: ll1 1000ml 10:45 Drug: Pepcid (famotidine) 20 mg Route: IVP; Site: left antecubital; iw 12:05 Follow up: Response: No adverse reaction ll1 10:45 Drug: Zofran (Ondansetron) 4 mg Route: IVP; Site: left antecubital; iw 12:06 Follow up: Response: No adverse reaction ll1 13:41 Drug: NS 0.9% 1000 ml Route: IV; Rate: 1 bolus; Site: left antecubital; hb 15:16 Follow up: Response: No adverse reaction; IV Status: Completed infusion; IV Intake: ll1 1000ml Medication: 14:36 VIS not applicable for this client. ll1 Intake: 12:05 IV: 1000ml; Total: 1000ml. ll1 15:16 IV: 1000ml; Total: 2000ml. 1 Outcome: 14:04 Decision to Hospitalize by Provider. [facility] 15:15 AMA AMA form signed [facility] 15:15 Condition: stable 15:15 Instructed on the need for admit, signed AMA. Refused to be admitted. 15:20 Patient left the ED. [facility] Signatures: Dispatcher [employer] JOSELINMA DriverMarianne campbell Irene, RN RN Linda Colby RN RN Jane Bundy RN RN [facility] Vi Davis, HIGH SCHOOL ASSISTANT PRINCIPAL HIGH SCHOOL ASSISTANT PRINCIPAL [facility]
--- NOTE | 2022-04-23 14:04 | EDPHYS ---
Physician Documentation [facility] Name: Karson Gant Age: 37 yrs Sex: Male : 1985 Arrival Date: 04/23/2022 Time: 09:42 Bed 5 Private MD: ED Physician Kris Echevarria HPI: 04/23 10:00 This 37 yrs old Male presents to ER via EMS with complaints of Vomiting. jh7 10:00 The patient presents to the emergency department with nausea, vomiting. Onset: The jh7 symptoms/episode began/occurred at 03:00. Associated signs and symptoms: Pertinent positives: Sore throat, fatigue, Pertinent negatives: diarrhea. Vomiting starting 3 to 4 hours ago. The patient states that he has been vomiting green bile, and is concerned that he has another esophageal tear. He reports that this occurred 3 years ago. Reports mild neck pain and fatigue. History of hypertension.. Historical: - Allergies: 09:58 PENICILLINS; iw - PMHx: :58 Hypertension; Hypothyroidism; iw - PSHx: :58 "tear duct"; iw - Immunization history:: Adult Immunizations. - Social history:: Smoking status: Patient denies any tobacco usage or history of. ROS: 10:00 Constitutional: Negative for fever, chills, and weight loss. jh7 10:00 Eyes: Negative for injury, pain, redness, and discharge, Cardiovascular: Negative for chest pain, palpitations, and edema, Respiratory: Negative for shortness of breath, cough, wheezing, and pleuritic chest pain, MS/Extremity: Negative for injury and deformity, Skin: Negative for injury, rash, and discoloration, Neuro: Negative for headache, weakness, numbness, tingling, and seizure. 10:00 ENT: Positive for sore throat, Negative for injury or acute deformity. 10:00 Neck: Positive for pain at rest, Negative for stiffness, swollen nodes, tenderness, bony tenderness. 10:00 Abdomen/GI: Positive for abdominal pain, nausea, vomiting, Negative for diarrhea. 10:00 All other systems are negative. Exam: 10:00 Constitutional: This is a well developed, well nourished patient who is awake, alert, jh7 and in no acute distress. ENT: Nares patent. No nasal discharge, no septal abnormalities noted. Oropharynx with no redness, swelling, or masses, exudates, or evidence of obstruction, uvula midline. Mucous membranes moist. Neck: Trachea midline, no thyromegaly or masses palpated, and no cervical lymphadenopathy. Supple, full range of motion without nuchal rigidity, or vertebral point tenderness. No Meningismus. Cardiovascular: Regular rate and rhythm with a normal S1 and S2. No gallops, murmurs, or rubs. Normal PMI, no JVD. No pulse deficits. Respiratory: Lungs have equal breath sounds bilaterally, clear to auscultation and percussion. No rales, rhonchi or wheezes noted. No increased work of breathing, no retractions or nasal flaring. Abdomen/GI: Soft, non-tender, with normal bowel sounds. No distension or tympany. No guarding or rebound. No evidence of tenderness throughout. Back: No spinal tenderness. No costovertebral tenderness. Full range of motion. Neuro: Awake and alert, GCS 15, oriented to person, place, time, and situation. Normal Gait. Vital Signs: 09:58 BP 128 / 88; Pulse 89; Resp 16; Temp 97.4; Pulse Ox 100% on R/A; iw 12:23 BP 128 / 90; Pulse 67; Resp 16; Pulse Ox 98% ; ll1 14:34 BP 130 / 75; Pulse 87; ll1 MDM: 10:15 Patient medically screened. [facility] 13:45 Differential diagnosis: Nonspecific abd pain, viral gastroenteritis, Acute renal [facility] failure, rhabdomyolysis. Data reviewed: vital signs, nurses notes, lab test result(s), radiologic studies, CT scan, plain films. Data interpreted: Pulse oximetry: is 98 %. Interpretation: normal. Counseling: I had a detailed discussion with the patient and/or guardian regarding: the historical points, exam findings, and any diagnostic results supporting the discharge/admit diagnosis, the need for further work-up and treatment in the hospital. ED course: Patient discussed with Dr. Kim and admitted under inpatient status. 04/23 09:59 Order name: CBC with Diff; Complete Time: 12:58 [facility] 04/23 09:59 Order name: CMP; Complete Time: 10:42 [facility] 04/23 09:59 Order name: Lipase; Complete Time: 10:42 [facility] 04/23 09:59 Order name: Urine Microscopic Only; Complete Time: 15:28 [facility] 04/23 09:59 Order name: CK; Complete Time: 10:42 [facility] 04/23 11:49 Order name: Lactate; Complete Time: 12:58 [facility] 04/23 10:01 Order name: XRAY Neck Soft Tissue; Complete Time: 12:13 [facility] 04/23 12:19 Order name: CT Abd/Pelvis - Without Contrast; Complete Time: 12:58 [facility] 04/23 12:57 Order name: CBC Smear Scan; Complete Time: 12:58 [facility] 04/23 13:37 Order name: Urine Dipstick-Ancillary; Complete Time: 13:42 [facility] 04/23 09:59 Order name: IV Saline Lock; Complete Time: 10:21 [facility] 04/23 09:59 Order name: Labs collected and sent; Complete Time: 10:21 [facility] 04/23 09:59 Order name: Urine Dipstick-Ancillary (obtain specimen); Complete Time: 13:41 [facility] Administered Medications: 10:45 Drug: NS 0.9% 1000 ml Route: IV; Rate: 1 bolus; Site: left antecubital; iw 12:05 Follow up: Response: No adverse reaction; IV Status: Completed infusion; IV Intake: ll1 1000ml 10:45 Drug: Pepcid (famotidine) 20 mg Route: IVP; Site: left antecubital; iw 12:05 Follow up: Response: No adverse reaction ll1 10:45 Drug: Zofran (Ondansetron) 4 mg Route: IVP; Site: left antecubital; iw 12:06 Follow up: Response: No adverse reaction ll1 13:41 Drug: NS 0.9% 1000 ml Route: IV; Rate: 1 bolus; Site: left antecubital; hb 15:16 Follow up: Response: No adverse reaction; IV Status: Completed infusion; IV Intake: ll1 1000ml Disposition Summary: 04/23/22 14:04 Hospitalization Ordered Hospitalization Status: Inpatient Admission [facility] Provider: Kasi Kim [facility] Location: Telemetry/MedSurg (Inpatient) [facility] Condition: Stable [facility] Problem: new [facility] Symptoms: have improved [facility] Bed/Room Type: Standard [facility] Room Assignment: [facility] Diagnosis - Acute kidney failure, unspecified [facility] - Rhabdomyolysis [facility] Forms: - Medication Reconciliation Form jh7 - SBAR form jh7 Signatures: Dispatcher [employer] Chasity Garza, RN RN iw Linda Colby RN RN Jane Bundy RN RN [facility] Vi Davis, CHRISTIANA [facility]
--- NOTE | 2022-04-23 15:04 | P.HP ---
Certification for Inpatient With expected LOS: >2 Midnights Practitioner: I am a practitioner with admitting privileges, knowledge of patient current condition, hospital course, and medical plan of care. Services: Services provided to patient in accordance with Admission requirements found in Title 42 Section 412.3 of the Code of Federal Regulations Patient History Date of Service: 04/23/22 Reason for admission: Nausea and vomiting History of Present Illness: 37-year-old gentleman with history of hypothyroidism and hypertension presented to the emergency department with a complaint of nausea and vomiting of onset this morning. Patient reported vomiting about 5 times, fourth episode was bloodstained, another episode bile-stained. Symptoms associated with abdominal pain. Patient denied any fever. He states that he was just released from incarceration 3 days ago. He reported limited access to food and water in sn[place]. Blood work done in the ED shows evidence of dehydration and acute renal failure. UA is negative for UTI. Patient hospitalized for further management. Allergies Penicillins Allergy (Severe, Verified 02/25/21 23:49) Anaphylaxis Home Medications: NK [No Home Meds] 02/25/21 - Past Medical/Surgical History Diabetic: No -: HTN -: hypothyroidism -: tear duct sx -: right eye surgery - Social History Alcohol use: No CD- Drugs: Yes Caffeine use: Yes Review of Systems Other: He denies chest pain, he denied any recent upper respiratory symptoms. Except as documented, all other systems reviewed and negative. Physical Examination - Physical Exam General: Alert, In no apparent distress, Oriented x3 HEENT: Normocephalic, PERRLA, Mucous membr. moist/pink, EOMI, Sclerae nonicteric Neck: Supple, JVD not distended, No Thyromegaly Respiratory: Clear to auscultation bilaterally, Normal air movement Cardiovascular: No edema, Regular rate/rhythm, Normal S1 S2, No murmurs Capillary refill: <2 Seconds Gastrointestinal: Normal bowel sounds, Soft and benign, Non-distended, No tenderness Musculoskeletal: No swelling, No tenderness Integumentary: No rashes, No erythema, No cyanosis Neurological: Normal speech, Normal strength at 5/5 x4 extr, Cranial nerves 3-12 intact Lymphatics: No axilla or inguinal lymphadenopathy - Studies Laboratory Data (last 24 hrs) 04/23/22 10:00: Sodium 133 L, Potassium 4.2, BUN 64 H, Creatinine 3.71 H, Glucose 136 H, Total Bilirubin 1.2 H, AST 26, ALT 24, Alkaline Phosphatase 117, Lipase 43 L 04/23/22 10:00: WBC 18.1 H, Hgb 16.7, Hct 49.2 H, Plt Count 213 Assessment and Plan - Problems (Diagnosis) (1) Acute renal failure Current Visit: Yes Status: Acute (2) Intractable nausea and vomiting Current Visit: No Status: Acute - Plan Patient with blood work showing hypercalcemia, leukocytosis, elevated total protein. This indicates hemoconcentration from dehydration. Admit patient to the medical floor Aggressive hydration with IV normal saline. IV Protonix twice daily for reports of bloodstained vomit. GI bleed likely secondary to Cassandra-Thorpe tear. Continue to monitor for active bleeding. Supportive measures with antiemetics. Clear liquid diet. Empiric IV Levaquin given leukocytosis Check urine toxicology. Monitor renal function for improvement. Monitor CBC. - Advance Directives Does patient have a Living Will: No Does patient have a Durable POA for Healthcare: No
[2022-04-23 15:12] LABS: Urine Bacteria 20-50 /HPF (<20); Urine RBC <5 /HPF (None Seen)
[2022-04-23 15:15] LABS: Urine Mucus 3+ /HPF (None Seen)
[2022-04-23 16:22] VITALS: TEMP 97.4
[2022-04-23 16:35] VITALS: O2SAT 98
[2022-04-23 16:44] VITALS: BP 130/75
--- NOTE | 2022-04-24 17:40 | P.DS ---
Admission Date: 04/23/22 Discharge Date: 04/24/22 Disposition: AMA-LEFT AGAINST MEDICAL ADVIC Reason for Admission: Nausea and vomiting - Problems (1) Acute renal failure Status: Acute (2) Intractable nausea and vomiting Status: Acute Brief History of Present Illness: 37-year-old gentleman with history of hypothyroidism and hypertension presented to the emergency department with a complaint of nausea and vomiting of onset this morning. Patient reported vomiting about 5 times, fourth episode was bloodstained, another episode bile-stained. Symptoms associated with abdominal pain. Patient denied any fever. He states that he was just released from incarceration 3 days ago. He reported limited access to food and water in [facility]. Blood work done in the ED shows evidence of dehydration and acute renal failure. UA is negative for UTI. Patient hospitalized for further management. Hospital Course: Nurse informed me within an hour after patient seen for admission that patient signed out AGAINST MEDICAL ADVICE. I did not get the chance to again discuss the need for hospitalization and. convince him to stay for treatment Vital Signs/Physical Exam: Temp Pulse Resp BP Pulse Ox 97.4 F 87 16 130/75 04/23/22 16:20 04/23/22 16:42 04/23/22 16:34 04/23/22 16:42 Laboratory Data at Discharge: WBC 18.1 K/uL (4.3-10.9) H 04/23/22 10:00 Hgb 16.7 g/dL (13.6-17.9) 04/23/22 10:00 Hct 49.2 % (39.6-49.0) H 04/23/22 10:00 Plt Count 213 K/uL (152-406) 04/23/22 10:00 Sodium 133 mmol/L (136-145) L 04/23/22 10:00 Potassium 4.2 mmol/L (3.5-5.1) 04/23/22 10:00 BUN 64 mg/dL (7-18) H 04/23/22 10:00 Creatinine 3.71 mg/dL (0.55-1.3) H 04/23/22 10:00 Glucose 136 mg/dL (74-106) H 04/23/22 10:00 Total Bilirubin 1.2 mg/dL (0.2-1.0) H 04/23/22 10:00 AST 26 U/L (15-37) 04/23/22 10:00 ALT 24 U/L (12-78) 04/23/22 10:00 Alkaline Phosphatase 117 U/L (45-117) 04/23/22 10:00 Lipase 43 U/L (73-393) L 04/23/22 10:00 Home Medications: NK [No Home Meds] 02/25/21 Followup: NONE,NONE [Primary Care Provider] -
== END 2022-04-23 15:20 | disposition left against medical advice (07) | DRG 684 ==
LOC: ER 09:30 → ERHOLD 14:49
PROVIDERS: ADMIT Internal Medicine; ATTEND Internal Medicine
DX: N17.9 Acute kidney failure, unspecified (principal); R11.2 Nausea with vomiting, unspecified; Z53.29 Procedure and treatment not carried out because of patient's decision for other reasons; E03.9 Hypothyroidism, unspecified; E86.0 Dehydration; Z88.0 Allergy status to penicillin
CPT/HCPCS: 36415; 70360; 74176; 80053; 81003; 81015; 82550; 83605; 83690; 85025; 87086; 87088; 96361; 96374; 96375; 99284; J2405; J7030

== ENCOUNTER 2023-04-29 23:25 | Inpatient (IN) | payer SELFPAY ==
[2023-04-30] MEDS ORDERED: NA CHLORIDE 0.9% 1,000 ML ONE ×2 (00:05→02:06)
[2023-04-30] MEDS ORDERED: LORazepam 2 MG/ML VIAL ONE (00:05)
[2023-04-30 00:22] LABS: Absolute Lymphocytes (CBC) 1.9 K/uL (0.7-4.9); Hematocrit 45.7 % (39.6-49.0); Lymphocytes % 7.7 % (15.3-44.8); MCV 90.5 fL (80-100); MPV 8.6 fL (7.6-11.3); Platelets 517 thou/uL (152-406); RBC Red Blood Cell Count 5.05 M/uL (4.33-5.43)
[2023-04-30 00:30] LABS: Protime INR 1.04
[2023-04-30 00:49] LABS: ALT/SGPT 43 U/L (16-61); Albumin 4.3 g/dL (3.4-5.0); Alkaline Phosphatase 73 U/L (45-117); BUN Blood Urea Nitrogen 36 mg/dL (7-18); Bicarbonate 23 mEq/L (21-32); Bilirubin Direct 0.1 mg/dL (0-0.2); Bilirubin Indirect, Calculated 0.6 mg/dL (0.2-0.8); Bilirubin Total 0.7 mg/dL (0.2-1.0); Glomerular Filtration Rate 30 ml/min (=/>90); Glucose Level 140 mg/dL (74-106); NT PRO-BNP 700 pg/mL (<125); Protein, Total 8.2 g/dL (6.4-8.2); Sodium Level 136 mEq/L (136-145)
[2023-04-30 00:50] LABS: AST/SGOT 44 U/L (15-37); Magnesium 2.3 mg/dL (1.6-2.4); Potassium 3.8 mEq/L (3.5-5.1)
[2023-04-30 00:51] LABS: Troponin High Sensitivity 79.6 pg/mL (<58.9)
--- NOTE | 2023-04-30 01:52 | EDPHYS ---
Physician Documentation [facility] Name: Karson Gant Age: 38 yrs Sex: Male : 1985 Arrival Date: 04/29/2023 Time: 23:25 Bed 7 Private MD: ED Physician Kris Echevarria HPI: 04/30 01:36 This 38 yrs old Male presents to ER via EMS with complaints of cp/sob. esperanza 01:36 The patient has shortness of breath at rest, with light activity. Onset: The esperanza symptoms/episode began/occurred just prior to arrival. Duration: The symptoms are intermittent, with no pattern. The patient's shortness of breath has no apparent modifying factors. The patient or guardian reports chest pain that is located primarily in the substernal area. The pain does not radiate. Associated signs and symptoms: Pertinent positives: chest pain, productive cough. Severity of symptoms: At their worst the symptoms were mild in the emergency department the symptoms are unchanged. Associated signs and symptoms: Pertinent positives: shortness of breath. The chest pain is described as a pressure. Modifying factors: The symptoms are alleviated by nothing. the symptoms are aggravated by nothing. Severity of pain: At its worst the pain was mild moderate in the emergency department the pain has improved mildly. The patient has experienced similar episodes in the past, several times, multiple times. Historical: - Allergies: 04/29 23:49 PENICILLINS; rv - PMHx: 23:49 Hypertension; Hypothyroidism; rv - PSHx: 23:49 "tear duct"; rv - Immunization history:: Client reports receiving the 1st dose of the Covid vaccine. - Social history:: Smoking status: Patient reports the use of cigarette tobacco products, Patient uses street drugs, Methamphetamine (Meth). - Family history:: not pertinent. ROS: 04/30 01:36 Constitutional: Negative for fever, chills, and weight loss, Eyes: Negative for injury, esperanza pain, redness, and discharge, ENT: Negative for injury, pain, and discharge, Neck: Negative for injury, pain, and swelling, Abdomen/GI: Negative for abdominal pain, nausea, vomiting, diarrhea, and constipation, Back: Negative for injury and pain, : Negative for injury, bleeding, discharge, and swelling, MS/Extremity: Negative for injury and deformity, Skin: Negative for injury, rash, and discoloration, Neuro: Negative for headache, weakness, numbness, tingling, and seizure, Psych: Negative for depression, anxiety, suicide ideation, homicidal ideation, and hallucinations, Allergy/Immunology: Negative for hives, rash, and allergies, Endocrine: Negative for neck swelling, polydipsia, polyuria, polyphagia, and marked weight changes, Hematologic/Lymphatic: Negative for swollen nodes, abnormal bleeding, and unusual bruising. Cardiovascular: Positive for chest pain. Respiratory: Positive for cough, shortness of breath. Exam: 01:36 Constitutional: This is a well developed, well nourished patient who is awake, alert, esperanza and in no acute distress. Head/Face: Normocephalic, atraumatic. Eyes: Pupils equal round and reactive to light, extra-ocular motions intact. Lids and lashes normal. Conjunctiva and sclera are non-icteric and not injected. Cornea within normal limits. Periorbital areas with no swelling, redness, or edema. ENT: Nares patent. No nasal discharge, no septal abnormalities noted. Tympanic membranes are normal and external auditory canals are clear. Oropharynx with no redness, swelling, or masses, exudates, or evidence of obstruction, uvula midline. Mucous membranes moist. Neck: Trachea midline, no thyromegaly or masses palpated, and no cervical lymphadenopathy. Supple, full range of motion without nuchal rigidity, or vertebral point tenderness. No Meningismus. Chest/axilla: Normal chest wall appearance and motion. Nontender with no deformity. No lesions are appreciated. Cardiovascular: Regular rate and rhythm with a normal S1 and S2. No gallops, murmurs, or rubs. Normal PMI, no JVD. No pulse deficits. Respiratory: Lungs have equal breath sounds bilaterally, clear to auscultation and percussion. No rales, rhonchi or wheezes noted. No increased work of breathing, no retractions or nasal flaring. Abdomen/GI: Soft, non-tender, with normal bowel sounds. No distension or tympany. No guarding or rebound. No evidence of tenderness throughout. Back: No spinal tenderness. No costovertebral tenderness. Full range of motion. Male : Normal genitalia with no discharge or lesions. Skin: Warm, dry with normal turgor. Normal color with no rashes, no lesions, and no evidence of cellulitis. MS/ Extremity: Pulses equal, no cyanosis. Neurovascular intact. Full, normal range of motion. Neuro: Awake and alert, GCS 15, oriented to person, place, time, and situation. Cranial nerves II-XII grossly intact. Motor strength 5/5 in all extremities. Sensory grossly intact. Cerebellar exam normal. Normal gait. Psych: Awake, alert, with orientation to person, place and time. Behavior, mood, and affect are within normal limits. 01:36 ECG was reviewed by the Attending Physician. Vital Signs: 04/29 23:46 BP 128 / 92; Pulse 99; Resp 17; Temp 97.7(O); Pulse Ox 100% on R/A; Weight 58 kg (R); rv Height 5 ft. 6 in. ; Pain 03/05; 04/30 00:00 BP 142 / 93; Pulse 123; Resp 20; Pulse Ox 100% ; rv 01:00 BP 130 / 105; Pulse 124; Resp 18; Pulse Ox 98% on R/A; rv 02:00 BP 121 / 86; Pulse 130; Resp 18; Pulse Ox 99% on R/A; rv 03:00 BP 127 / 75; Pulse 106; Resp 16; Temp 98; Pulse Ox 100% on R/A; rv 04/29 23:46 Body Mass Index 20.64 (58.00 kg, 167.64 cm) rv 04/29 23:46 Pain Scale: Adult rv MDM: 04/29 23:44 Patient medically screened. [facility] 04/30 01:44 Differential diagnosis: Anxiety Reaction asthma, Bronchitis CHF exacerbation, abnormal [facility] EKG, acute pericarditis, anxiety, coronary artery disease congestive heart failure Cholelithiasis costochondritis, gastritis, hiatal hernia, peptic ulcer disease, pneumonia, pulmonary embolus, stable angina, unstable angina, Myocardial Infarction pneumonia, Pneumothorax pulmonary edema, Pulmonary Embolism reactive airway disease, Unstable Angina. Antibiotic administration: Not indicated. HEART Score: History: Moderately Suspicious (1), ECG: Non specific repolarization disturbance / LBTB / PM (1), Age: < or = 45 years (0), Risk Factors: > or = 3 Risk factors for atherosclerotic disease (2), [Hypertension] [Active Smoker] [+ Family HX] Troponin: > 1 and < 3 x normal limit (1), Total Score = 5. SOTO Risk Score: 1 - Three or more CAD risk factors, 1 - Elevated Cardiac Markers, 1 - ST deviation >0.5mm, TOTAL SCORE = 3. Immunization status:. Data reviewed: vital signs, nurses notes, lab test result(s), EKG, radiologic studies, plain films. Consideration of Admission/Observation Patient was admitted/placed on observation. Escalation of care including admission/observation considered. I considered the following discharge prescriptions or medication management in the emergency department Medications were administered in the Emergency Department. See MAR. Test considered but Not performed: CT: no ct chest. Historians other than the Patient: EMS: ems well informed. Care significantly affected by the following chronic conditions: Hypertension, hypothyroid. Counseling: I had a detailed discussion with the patient and/or guardian regarding: the historical points, exam findings, and any diagnostic results supporting the discharge/admit diagnosis, the presence of at least one elevated blood pressure reading (>120/80) during this emergency department visit, lab results, the need for further work-up and treatment in the hospital. 04/29 23:44 Order name: Basic Metabolic Panel; Complete Time: 04/29 23:44 Order name: CBC with Diff; Complete Time: 00:33 04/29 23:44 Order name: LFT's; Complete Time: 04/29 23:44 Order name: Magnesium; Complete Time: 04/29 23:44 Order name: NT PRO-BNP; Complete Time: 04/29 23:44 Order name: PT-INR; Complete Time: 04/29 23:44 Order name: Troponin HS; Complete Time: 04/29 23:44 Order name: Acetaminophen; Complete Time: 04/29 23:44 Order name: ETOH Level; Complete Time: 04/29 23:44 Order name: Ptt, Activated; Complete Time: 04/29 23:44 Order name: Salicylate; Complete Time: 04/29 23:44 Order name: Urine Drug Screen 04/30 01:52 Order name: CPK 1 04/30 01:52 Order name: Procalcitonin 04/30 01:52 Order name: CRP 04/30 01:55 Order name: UAM 04/29 23:44 Order name: XRAY Chest (1 view) [facility] 04/29 23:44 Order name: EKG; Complete Time: 23:45 [facility] 04/29 23:44 Order name: Cardiac monitoring; Complete Time: 23:46 [facility] 04/29 23:44 Order name: EKG - Nurse/Tech; Complete Time: 23:46 [facility] 04/29 23:44 Order name: IV Saline Lock; Complete Time: 01:50 [facility] 04/29 23:44 Order name: Labs collected and sent; Complete Time: 01:50 [facility] 04/29 23:44 Order name: O2 Per Protocol; Complete Time: 01:50 [facility] 04/29 23:44 Order name: O2 Sat Monitoring; Complete Time: 01:50 [facility] 04/29 23:44 Order name: Suicide Screening ([place]); Complete Time: :50 [facility] EC:36 Rate is 102 beats/min. Rhythm is regular. QRS [place] is Normal. UT interval is normal. [facility] QRS interval is normal. QT interval is normal. No Q waves. T waves are Normal. ST Segment is depressed in leads II, III, aVF, V5, V6. Clinical impression: Sinus tachycardia. Interpreted by me. Reviewed by me. Administered Medications: 00:00 Drug: NS 0.9% IV 1000 ml Route: IV; Rate: 1 bolus; Site: right forearm; rv 02:19 Follow up: IV Status: Completed infusion; IV Intake: 1000ml rv 00:00 Drug: Ativan IVP 1 mg Route: IVP; Site: right forearm; rv 02:19 Follow up: Response: No adverse reaction rv 02:19 Drug: Famotidine IVP 20 mg Route: IVP; Site: right antecubital; rv 03:07 Follow up: Response: No adverse reaction rv 02:19 Drug: Aspirin PO Chewable Tablet 324 mg Route: PO; rv 03:07 Follow up: Response: No adverse reaction rv 02:19 Drug: Enoxaparin Sub-Q 50 mg Route: Sub-Q; Site: abdomen; rv 03:07 Follow up: Response: No adverse reaction rv 02:19 Drug: Clopidogrel PO 300 mg Route: PO; rv 03:07 Follow up: Response: No adverse reaction rv 02:19 Drug: morphine IVP or IV 4 mg Route: IVP; Infused Over: 4 mins; Site: right antecubital;rv 03:07 Follow up: Response: No adverse reaction rv 02:19 Drug: Ondansetron IVP 4 mg Route: IVP; Site: right antecubital; rv 03:07 Follow up: Response: No adverse reaction rv 02:19 Drug: NS 0.9% IV 1000 ml Route: IV; Rate: 1000 ml; Site: right antecubital; rv 03:07 Follow up: IV Status: Infusion continued upon admission rv Disposition Summary: 04/30/23 01:51 Hospitalization Ordered Hospitalization Status: Inpatient Admission esperanza Provider: Eric Roberto cha Location: Telemetry/MedSurg (Inpatient) esperanza Condition: Fair esperanza Problem: new esperanza Symptoms: have improved esperanza Bed/Room Type: Standard [facility] Room Assignment: 206(04/30/23 02:30) cg Diagnosis - Elevated white blood cell count esperanza - Chest pain, unspecified esperanza - Unstable angina esperanza - Tobacco abuse counseling esperanza - Tobacco use esperanza - Acute kidney failure, unspecified - on chronic esperanza - Non ST elevation [place] esperanza - Abuse of other non-psychoactive substances esperanza - Adverse effect of amphetamines esperanza - Adverse effect of amphetamines, initial encounter esperanza Forms: - Medication Reconciliation Form esperanza - SBAR form esperanza Signatures: Dispatcher [employer] EDKris Friedman MD MD cha Attema, Lee, PSYCHOLOGICAL SCIENCE PROFESSOR-C PSYCHOLOGICAL SCIENCE PROFESSOR-Cla1 Isela Yoder, SALUD RN Vishal Palomino RN RN rv Corrections: (The following items were deleted from the chart) 02:30 01:51 esperanza cg
--- NOTE | 2023-04-30 01:52 | ER ---
Nurse's Notes [facility] Name: Karson Gant Age: 38 yrs Sex: Male : 1985 Arrival Date: 04/29/2023 Time: 23:25 Bed 7 Private MD: Diagnosis: Elevated white blood cell count;Chest pain, unspecified;Unstable angina;Tobacco abuse counseling;Tobacco use;Acute kidney failure, unspecified-on chronic;Non ST elevation [place];Abuse of other non-psychoactive substances;Adverse effect of amphetamines;Adverse effect of amphetamines, initial encounter Presentation: 04/29 23:46 Chief complaint: EMS states: Toned out for chest pain and SOB, pt states symptoms began rv 21 days ago after getting out of halfway, pt reports eating a "small baggie of meth" 5 hours EXERCISE PHYSIOLOGIST. Coronavirus screen: Vaccine status: Patient reports receiving the 1st dose of the Covid vaccine. At this time, the client does not indicate any symptoms associated with coronavirus-19. Ebola Screen: No symptoms or risks identified at this time. Initial Sepsis Screen: Does the patient meet any 2 criteria? Systolic BP < 90 mmHg. No. Patient's initial sepsis screen is negative. Does the patient have a suspected source of infection? No. Patient's initial sepsis screen is negative. Risk Assessment: Do you want to hurt yourself or someone else? Patient reports no desire to harm self or others. Onset of symptoms was April 08, 2023. Care prior to arrival: Medication(s) given: Normal saline infusion, 500 mL, IV initiated. 20 GA, in the left antecubital area. 23:46 Method Of Arrival: EMS: [facility] rv 23:46 Acuity: BASIL 2 rv Triage Assessment: 23:49 General: Appears comfortable, Behavior is calm, cooperative. Pain: Complains of pain in rv chest Pain does not radiate. Pain currently is 6 out of 10 on a pain scale. Pain began 21 days ago Is continuous. Cardiovascular: Patient's skin is warm and dry. Rhythm is sinus tachycardia Chest pain is described as vague, is located in anterior chest wall began 21 days ago episodes are continuous. Respiratory: Reports shortness of breath Respiratory effort is even, unlabored, Respiratory pattern is regular, symmetrical. Derm: Skin is clammy. Historical: - Allergies: 23:49 PENICILLINS; rv - PMHx: 23:49 Hypertension; Hypothyroidism; rv - PSHx: 23:49 "tear duct"; rv - Immunization history:: Client reports receiving the 1st dose of the Covid vaccine. - Social history:: Smoking status: Patient reports the use of cigarette tobacco products, Patient uses street drugs, Methamphetamine (Meth). - Family history:: not pertinent. Screenin/05 00:08 [facility] ED Fall Risk Assessment (Adult) History of falling in the last 3 months, rv including since admission No falls in past 3 months (0 pts) Confusion or Disorientation No (0 pts) Intoxicated or Sedated No (0 pts) Impaired Gait No (0 pts) Mobility Assist Device Used No (0 pt) Altered Elimination No (0 pt) Score/Fall Risk Level 0 - 2 = Low Risk Oriented to surroundings, Maintained a safe environment, Educated pt \\T\\ family on fall prevention, incl call for assistance when getting out of bed, Assessed \\T\\ reinforced patient's understanding of fall precautions, Provided non-skid footwear, Hourly rounding (assess needs \\T\\ fall precautionary measures) done, Used ambulatory aids as needed (educated on \\T\\ assisted with), Used gait belt as appropriate. Abuse screen: Denies threats or abuse. Denies injuries from another. Nutritional screening: No deficits noted. Tuberculosis screening: No symptoms or risk factors identified. Assessment: 00:08 General: Appears unkempt, Behavior is quiet, restless. Pain: Denies pain. Neuro: Level rv of Consciousness is HYPERALERT. Oriented to person, place, time, situation. Cardiovascular: Capillary refill < 3 seconds Rhythm is sinus tachycardia. Respiratory: Airway is patent Respiratory effort is even, unlabored. GI: No signs and/or symptoms were reported involving the gastrointestinal system. : No signs and/or symptoms were reported regarding the genitourinary system. 02:56 Reassessment: Patient appears in no apparent distress at this time. Patient and/or jb4 family updated on plan of care and expected duration. Pain level reassessed. Patient is alert, oriented x 3, equal unlabored respirations, skin warm/dry/pink. attempted to call report. On hold for 11 minutes. will call back in 10 minutes. Vital Signs: 04/29 23:46 BP 128 / 92; Pulse 99; Resp 17; Temp 97.7(O); Pulse Ox 100% on R/A; Weight 58 kg (R); rv Height 5 ft. 6 in. ; Pain 6/10; 04/30 00:00 BP 142 / 93; Pulse 123; Resp 20; Pulse Ox 100% ; rv 01:00 BP 130 / 105; Pulse 124; Resp 18; Pulse Ox 98% on R/A; rv 02:00 BP 121 / 86; Pulse 130; Resp 18; Pulse Ox 99% on R/A; rv 03:00 BP 127 / 75; Pulse 106; Resp 16; Temp 98; Pulse Ox 100% on R/A; rv 04/29 23:46 Body Mass Index 20.64 (58.00 kg, 167.64 cm) rv 04/29 23:46 Pain Scale: Adult rv ED Course: 04/29 23:42 Patient arrived in ED. wm 23:44 Kris Echevarria MD is Attending Physician. esperanza 23:49 Triage completed. rv 23:49 Arm band placed on Patient placed in an exam room, on a stretcher, on red leader, rv on pulse oximetry. EKG completed in triage. Results shown to MD. 04/30 00:08 Vishal Holland, RN is Primary Nurse. rv 00:08 Inserted saline lock: 20 gauge in right forearm, using aseptic technique. Blood rv collected. Maintain EMS IV. Dressing intact. Good blood return noted. Site clean \\T\\ dry. Gauge \\T\\ site: 18 LAC. 00:08 No provider procedures requiring assistance completed. rv 00:10 Patient has correct armband on for positive identification. Placed in gown. Bed in low rv position. Call light in reach. Side rails up X2. Client placed on continuous cardiac and pulse oximetry monitoring. NIBP monitoring applied. automatic cigar wrapper tender on. 00:53 XRAY Chest (1 view) In Process Unspecified. EDMS 01:48 Tyrel Robles MD is Hospitalizing Provider. esperanza 01:49 Eric Roberto MD is Hospitalizing Provider. esperanza 03:08 Provided Education on: SUBSTANCE ABUSE. rv 03:08 Patient admitted, IV remains in place. rv Administered Medications: 00:00 Drug: NS 0.9% IV 1000 ml Route: IV; Rate: 1 bolus; Site: right forearm; rv 02:19 Follow up: IV Status: Completed infusion; IV Intake: 1000ml rv 00:00 Drug: Ativan IVP 1 mg Route: IVP; Site: right forearm; rv 02:19 Follow up: Response: No adverse reaction rv 02:19 Drug: Famotidine IVP 20 mg Route: IVP; Site: right antecubital; rv 03:07 Follow up: Response: No adverse reaction rv 02:19 Drug: Aspirin PO Chewable Tablet 324 mg Route: PO; rv 03:07 Follow up: Response: No adverse reaction rv 02:19 Drug: Enoxaparin Sub-Q 50 mg Route: Sub-Q; Site: abdomen; rv 03:07 Follow up: Response: No adverse reaction rv 02:19 Drug: Clopidogrel PO 300 mg Route: PO; rv 03:07 Follow up: Response: No adverse reaction rv 02:19 Drug: morphine IVP or IV 4 mg Route: IVP; Infused Over: 4 mins; Site: right antecubital;rv 03:07 Follow up: Response: No adverse reaction rv 02:19 Drug: Ondansetron IVP 4 mg Route: IVP; Site: right antecubital; rv 03:07 Follow up: Response: No adverse reaction rv 02:19 Drug: NS 0.9% IV 1000 ml Route: IV; Rate: 1000 ml; Site: right antecubital; rv 03:07 Follow up: IV Status: Infusion continued upon admission rv Medication: 00:10 VIS not applicable for this client. rv Intake: 02:19 IV: 1000ml; Total: 1000ml. rv Outcome: 01:51 Decision to Hospitalize by Provider. esperanza 03:07 Admitted to Med/surg accompanied by nurse, via wheelchair, room 206, with chart, Report rv called to CHENTE BRANNON 03:07 Condition: stable 03:07 Instructed on the need for admit. 03:08 Patient left the ED. rv Signatures: Dispatcher [employer] EDMS Kris Echevarria MD MD cha Bryson, James RN RN jb4 Vishal Holland RN RN Prema Chen
[2023-04-30] MEDS ORDERED: CLOPIDOGREL 75 MG TABLET ONE (02:04)
[2023-04-30] MEDS ORDERED: ASPIRIN 81 MG CHEWABLE TABLET ONE (02:04)
[2023-04-30] MEDS ORDERED: MORPHINE 4 MG/ML SYR ONE (02:04)
[2023-04-30] MEDS ORDERED: FAMOTIDINE 20 MG/2 ML VIAL IV ONE (02:04)
[2023-04-30] MEDS ORDERED: ONDANSETRON 4 MG/2 ML VIAL ONE (02:04)
[2023-04-30] MEDS ORDERED: ENOXAPARIN 60 MG/0.6 ML SQ ONE (02:05)
[2023-04-30 02:11] LABS: C-Reactive Protein 13.6 mg/L (<3.00)
--- NOTE | 2023-04-30 02:23 | P.HP ---
Certification for Inpatient Patient admitted to: Inpatient With expected LOS: >2 Midnights Patient will require the following post-hospital care: None Practitioner: I am a practitioner with admitting privileges, knowledge of patient current condition, hospital course, and medical plan of care. Services: Services provided to patient in accordance with Admission requirements found in Title 42 Section 412.3 of the Code of Federal Regulations Patient History Date of Service: 04/30/23 Reason for admission: Chest pain, NSTEMI History of Present Illness: 38-year-old male with history of substance abuse, presumed CKD, hypertension, hypothyroidism who does not admit to being on any home medications presents emergency department chief complaint of chest pain. He reports that he [facility] had [place] [facility] and has been having chest pain pretty often since then. He reports taking meth earlier today. He was evaluated in the emergency department his labs are significant for initial high-sensitivity troponin 79.6 creatinine 2.69 GFR 30 glucose 140 white blood count 25.1 UA is pending chest x-ray is unremarkable UDS is pending EKG with nonspecific changes but no STEMI criteria. Last creatinine 04/23/2020 was 3.71, at that time he left AMA during admission for acute renal failure. He will be admitted for chest pain, NSTEMI. Allergies Penicillins Allergy (Severe, Verified 02/25/21 23:49) Anaphylaxis Home Medications: NK [No Home Meds] 02/25/21 - Past Medical/Surgical History Diabetic: No -: HTN -: hypothyroidism -: CKD? -: tear duct sx -: right eye surgery Psychosocial/ Personal History: Unknown - Family History Family History: Reviewed- Non-Contributory - Social History Smoking Status: Current every day smoker Alcohol use: No CD- Drugs: Yes Caffeine use: Yes Place of Residence: Home Review of Systems 10-point ROS is otherwise unremarkable Cardiovascular: Chest Pain Physical Examination - Physical Exam General: Alert, In no apparent distress, Oriented x3 HEENT: Atraumatic, PERRLA, Mucous membr. moist/pink, EOMI, Sclerae nonicteric Neck: Supple, 2+ carotid pulse no bruit, No LAD, Without JVD or thyroid abnormality Respiratory: Clear to auscultation bilaterally, Normal air movement Cardiovascular: Regular rate/rhythm, Normal S1 S2 Capillary refill: <2 Seconds Gastrointestinal: Normal bowel sounds, No tenderness Musculoskeletal: No tenderness Integumentary: No rashes Neurological: Normal speech, Normal strength at 5/5 x4 extr, Normal tone, Normal affect - Studies Laboratory Data (last 24 hrs) 04/30/23 04/30/23 04/30/23 00:03 00:03 00:03 WBC 25.10 H Hgb 14.9 Hct 45.7 Plt Count 517 H PT 11.4 INR 1.04 APTT 29.5 Sodium 136 Potassium 3.8 BUN 36 H Creatinine 2.69 H Glucose 140 H Magnesium 2.3 Total Bilirubin 0.7 AST 44 H ALT 43 Alkaline Phosphatase 73 Assessment and Plan - Plan Assessment: Chest pain, NSTEMI Substance use disorder, amphetamine abuse Hypertension Hypothyroidism CKD Plan: Chest pain, NSTEMI Substance use disorder, amphetamine abuse Trend troponin, monitor on telemetry, aspirin, statin hold off on beta-beti as it is not clear what all substances patient has ingested. As needed Ativan for agitation/anxiety. Counseled on need for cessation from amphetamines and stimulants. Patient very poor historian. Cardiology consult in place. Hypertension Hypothyroidism Obtain and continue on medications as appropriate CKD Patient left AMA from hospital last year when he was admitted for VIC, his creatinine has improved since then, continue IV fluids, monitor chemistry daily. DVT PPX: Therapeutic Lovenox Code status: Full Discharge Plan: Home Plan to discharge in: 48 Hours - Advance Directives Does patient have a Living Will: No Does patient have a Durable POA for Healthcare: No - Code Status/Comfort Care Code Status Assessed: Yes (Full code) Critical Care: No Time Spent Managing Pts Care (In Minutes): 55
[2023-04-30] MEDS ORDERED: NA CHLORIDE 0.9% 1,000 ML IV SCH (03:13)
[2023-04-30] MEDS ORDERED: LORazepam 2 MG/ML VIAL IV PRN (03:13)
[2023-04-30] MEDS ORDERED: ONDANSETRON 4 MG/2 ML VIAL IV PRN (03:13)
[2023-04-30 04:00] VITALS: BMI 21.9
[2023-04-30 04:13] VITALS: O2SAT 100
[2023-04-30 04:31] VITALS: BP 129/84; TEMP 98.7
[2023-04-30 05:07] LABS: Thyroid Stimulating Hormone 5.23 uIU/mL (0.358-3.740)
[2023-04-30 05:09] LABS: Troponin High Sensitivity 89.9 pg/mL (<58.9)
[2023-04-30] MEDS ORDERED: ASPIRIN EC 81 MG TAB PO SCH (09:00)
[2023-04-30] MEDS ORDERED: ATORVASTATIN 40 MG TAB PO SCH (21:00)
[2023-04-30] MEDS ORDERED: ENOXAPARIN 60 MG/0.6 ML SQ SCH (22:00)
--- NOTE | 2023-04-30 22:42 | RAD REPORT ---
EXAM DESCRIPTION: Chest Single View CLINICAL HISTORY CHEST PAIN. COMPARISON: None. TECHNIQUE: Single view AP chest radiograph(s). FINDINGS: The lungs are clear. No pulmonary infiltrate or edema identified. No pleural effusion. N o pneumothorax. Nonenlarged cardiomediastinal silhouette. No significant osseous abnormality. IMPRESSION: No acute cardiopulmonary abnormality identified by radiograph. Electronically signed by: Araseli Ambrosio MD 04/30/2023 1:01 AM CDT Due to temporary technical issues with the PACS/Fluency reporting system, reports are being signed by the in house radiologists without review as a courtesy to insure prompt reporting. The interpreting radiologist is fully responsible for the content of the report.
--- NOTE | 2023-05-02 13:07 | EKG ---
Test Date: 2023-04-29 Test Time: 23:43:35 Systems Engineering Manager: SMITHA MEASUREMENT RESULTS: Intervals: Rate: 102 WI: 122 QRSD: 108 QT: 346 QTc: 450 [place]: P: 81 WI: 122 QRS: 80 T: 35 INTERPRETIVE STATEMENTS: Sinus tachycardia Right atrial enlargement ST & T wave abnormality, consider inferior ischemia Abnormal ECG Compared to ECG 06/18/2021 00:28:08 Atrial abnormality now present ST (T wave) deviation now present Possible ischemia now present Sinus bradycardia no longer present Electronically Signed On 05-02-23 13:05:14 CDT by Donte Lopez
== END 2023-04-30 07:58 | disposition left against medical advice (07) | DRG 281 ==
LOC: ER 23:25 → ERHOLD 04-30 02:13 → 2ND 04-30 02:51
PROVIDERS: ADMIT Internal Medicine Sleep Medicine; ATTEND Internal Medicine Sleep Medicine
DX: I21.4 Non-ST elevation (NSTEMI) myocardial infarction (principal); N17.9 Acute kidney failure, unspecified; E03.9 Hypothyroidism, unspecified; F55.8 Abuse of other non-psychoactive substances; I12.9 Hypertensive chronic kidney disease with stage 1 through stage 4 chronic kidney disease, or unspecified chronic kidney disease; N18.9 Chronic kidney disease, unspecified; D72.829 Elevated white blood cell count, unspecified; T43.625A Adverse effect of amphetamines, initial encounter; F17.210 Nicotine dependence, cigarettes, uncomplicated; Z71.6 Tobacco abuse counseling; Z88.0 Allergy status to penicillin
CPT/HCPCS: 36415; 71045; 80048; 80061; 80076; 80143; 80179; 82077; 82550; 83735; 83880; 84145; 84439; 84443; 84484; 85025; 85610; 85730; 86140; 93005; 96372; 99285; J1650; J2405; J7030

== ENCOUNTER 2024-05-23 22:11 | Emergency (ER) | payer SELFPAY ==
--- NOTE | 2024-05-24 00:51 | ER ---
Nurse's Notes [facility] Name: Karson Gant Age: 39 yrs Sex: Male : 1985 Arrival Date: 05/23/2024 Time: 22:11 Bed IW1 Private MD: Diagnosis: Presentation: 05/23 22:23 Chief complaint: Patient states: abscess to left mid finger and left hand area swollen kl weeping reports foul smelling drainage. Coronavirus screen: Vaccine status: Patient reports being unvaccinated. Ebola Screen: Patient negative for fever greater than or equal to 101.5 degrees Fahrenheit, and additional compatible Ebola Virus Disease symptoms. Initial Sepsis Screen: Does the patient meet any 2 criteria? No. Patient's initial sepsis screen is negative. Risk Assessment: Do you want to hurt yourself or someone else? Patient reports no desire to harm self or others. Onset of symptoms was May 21, 2024. 22:23 Method Of Arrival: Ambulatory 22:23 Acuity: BASIL 3 kl Triage Assessment: 22:27 Bite description: by unknown. General: Appears comfortable, unkempt, Behavior is kl cooperative, flat. Pain: Denies pain. Derm: Abscess located on dorsal aspect of middle phalanx of left middle finger and dorsum of left hand. Historical: - Allergies: 22:26 PENICILLINS; kl - Home Meds: 22:26 None [Active]; kl - PMHx: 22:26 Hypertension; Hypothyroidism; kl - PSHx: 22:26 None; kl - Immunization history:: Last tetanus immunization: unknown. - Infectious Disease History:: Denies. - Social history:: Smoking status: Patient uses alcohol, street drugs, cocaine, marijuana, Methamphetamine (Meth). Assessment: 05/24 00:45 Reassessment: attempted to call pt from the Lobby multiple times from the lobby. Pt no jb4 where to be found. Registration reports patient was walking towards the door and not seen since. Attempted to call the phone number on file, pt's mother answered and reported he no longer lives with her. Vital Signs: 05/23 22:23 BP 118 / 80; Pulse 77; Resp 18; Temp 98.5; Pulse Ox 100% ; Height 5 ft. 6 in. ; Pain kl 0/10; 22:23 Pain Scale: Adult kl ED Course: 22:16 Patient arrived in ED. jj6 22:20 Patient's name was called from ER lobby. No response. serafin 22:26 Triage completed. serafin 22:40 Kris Echevarria MD is Attending Physician. esperanza 05/24 00:07 Patient's name was called from ER lobby. No response. xena 00:46 Patient's name was called from ER lobby. Unable to locate patient. Will disposition as jb4 left without being seen by a provider. Administered Medications: No medications were administered Outcome: 00:50 Patient left the ED. jb4 Signatures: Darlene Bundy, RN RN Kris Tucker MD MD cha Bryson, James, RN RN jbVi Son jj6
[2024-05-24 01:07] VITALS: BP 118/80; TEMP 98.5; O2SAT 100
== END 2024-05-24 00:50 | disposition left against medical advice (07) ==
LOC: ER 22:11
DX: Z53.21 Procedure and treatment not carried out due to patient leaving prior to being seen by health care provider (principal)
CPT/HCPCS: 99281

== ENCOUNTER 2024-05-30 16:27 | Emergency (ER) | payer SELFPAY ==
[2024-05-30] MEDS ORDERED: TDAP (DIPHTH,PERTUSS(ACELL),TET VAC) 0.5 ML VIAL IMVAC ONE (17:13)
[2024-05-30] MEDS ORDERED: LIDOCAINE 2% W/EPI 1:200,000 MPF 20 ML VIAL IM ONE (17:13)
--- NOTE | 2024-05-30 18:06 | ER ---
Nurse's Notes [facility] Name: Karson Gant Age: 39 yrs Sex: Male : 1985 Arrival Date: 05/30/2024 Time: 16:27 Bed 4 Private MD: Diagnosis: Cutaneous abscess of right foot Presentation: 05/30 16:47 Chief complaint: EMS states: they were toned out for right foot pain. pt has a wound kc6 that has been bothering for him for x2 days. denies injury. states he got bit by ants. Coronavirus screen: At this time, the client does not indicate any symptoms associated with coronavirus-19. Ebola Screen: No symptoms or risks identified at this time. Initial Sepsis Screen: Does the patient meet any 2 criteria? No. Patient's initial sepsis screen is negative. Does the patient have a suspected source of infection? No. Patient's initial sepsis screen is negative. Risk Assessment: Do you want to hurt yourself or someone else? Patient reports no desire to harm self or others. Onset of symptoms was May 30, 2024. 16:47 Method Of Arrival: EMS: [facility] kc6 16:47 Acuity: BASIL 3 kc6 Historical: - Allergies: 16:49 PENICILLINS; kc6 - Home Meds: 16:49 None [Active]; kc6 - PMHx: 16:49 Hypothyroidism; Hypertension; kc6 - PSHx: 16:49 None; kc6 - Immunization history:: Adult Immunizations not up to date. - Infectious Disease History:: Denies. - Social history:: Smoking status: Reported history of juuling and/or vaping. Screenin:20 [facility] ED Fall Risk Assessment (Adult) History of falling in the last 3 months, ph including since admission No falls in past 3 months (0 pts) Confusion or Disorientation No (0 pts) Intoxicated or Sedated No (0 pts) Impaired Gait No (0 pts) Mobility Assist Device Used No (0 pt) Altered Elimination No (0 pt) Score/Fall Risk Level 0 - 2 = Low Risk Oriented to surroundings, Maintained a safe environment, Hourly rounding (assess needs \T\ fall precautionary measures) done. Abuse screen: Denies threats or abuse. Denies injuries from another. Nutritional screening: No deficits noted. Tuberculosis screening: No symptoms or risk factors identified. Assessment: 17:17 General: Appears in no apparent distress. Behavior is calm, cooperative. Pain: ph Complains of pain in right foot. Neuro: Level of Consciousness is awake, alert, obeys commands, Oriented to person, place, time, situation. Cardiovascular: Capillary refill < 3 seconds in bilateral fingers Patient's skin is warm and dry. Respiratory: Airway is patent Respiratory effort is even, unlabored. Derm: Skin is pink, warm \T\ dry. Abscess located on dorsum of right foot X 2 is dime sized, is red, is raised. Vital Signs: 16:47 BP 115 / 82; Pulse 75; Resp 17 S; Temp 98.5(O); Pulse Ox 100% on R/A; Height 5 ft. 6 kc6 in. (R); Pain 6/10; 18:00 BP 118 / 78; Pulse 71; Resp 18; Temp 98; Pulse Ox 99% on R/A; ph 16:47 Pain Scale: Adult kc6 ED Course: 16:31 Patient arrived in ED. im 16:31 Prateek Almaraz DO is Attending Physician. ms3 16:49 Triage completed. kc6 16:49 Arm band placed on. kc6 17:01 Caity Koch, RN is Primary Nurse. ph 17:21 Assist provider with I \T\ D: of an abscess on right FOOT. ph 17:23 Patient has correct armband on for positive identification. Bed in low position. Call ph light in reach. Side rails up X 1. 17:23 Patient did not have IV access during this emergency room visit. ph 18:04 Jono Hawk DO is Referral Physician. ms3 Administered Medications: 17:17 Drug: Boostrix Tdap IM 0.5 ml IM once; as a single dose Route: IM; Site: right deltoid; ph 19:14 Follow up: Response: No adverse reaction ph 17:21 Drug: Lidocaine-Epinephrine Infiltration -1%: (1:100,000) 20 ml 20 ml Infiltration ph once; to bedside Volume: 20 ml; Route: Infiltration; 19:14 Follow up: Response: No adverse reaction ph 18:25 Drug: Doxycycline PO 100 mg PO once Route: PO; ll1 19:14 Follow up: Response: No adverse reaction ph Medication: 17:22 Vaccine Information Statement (VIS) provided today. Questions and/or concerns ph addressed. VIS edition date: May 01, 2021. Outcome: 18:05 Discharge ordered by . ms3 18:39 Patient left the ED. ll1 18:39 Discharged to home via wheelchair, ph 18:39 Condition: good 18:39 Discharge instructions given to patient, Instructed on discharge instructions, follow up and referral plans. medication usage, Demonstrated understanding of instructions, follow-up care, medications, Prescriptions given X 1, Signatures: Caity Koch, RN RN ph Jane Bundy RN RN ll1 Prateek Almaraz DO DO ms3 Kim Mittal RN RN kc6 Cecille Rodriguez
--- NOTE | 2024-05-30 18:07 | EDPHYS ---
Physician Documentation [facility] Name: Karson Gant Age: 39 yrs Sex: Male : 1985 Arrival Date: 05/30/2024 Time: 16:27 Bed 4 Private MD: ED Physician Prateek Almaraz HPI: 05/30 18:18 This 39 yrs old Male presents to ER via EMS with complaints of Foot Pain. ms3 18:18 39-year-old male with past medical history of hypothyroidism and hypertension presents ms3 to the emergency department for right foot erythema and abscess. Patient states his discomfort is a 6/10. Patient denies any alleviating or inciting factors. Patient does endorse injection of methamphetamines. Historical: - Allergies: 16:49 PENICILLINS; kc6 - Home Meds: 16:49 None [Active]; kc6 - PMHx: 16:49 Hypothyroidism; Hypertension; kc6 - PSHx: 16:49 None; kc6 - Immunization history:: Adult Immunizations not up to date. - Infectious Disease History:: Denies. - Social history:: Smoking status: Reported history of juuling and/or vaping. ROS: 18:18 Cardiovascular: Negative for chest pain, and palpitations. Respiratory: Negative for ms3 shortness of breath, cough, wheezing, and pleuritic chest pain, Abdomen/GI: Negative for abdominal pain, nausea, vomiting, diarrhea, and constipation, 18:18 Skin: Positive for abscess, cellulitis, Exam: 18:18 Constitutional: This is a well developed, well nourished patient who is awake, alert, ms3 and in no acute distress. Cardiovascular: Regular rate and rhythm with a normal S1 and S2. No gallops, murmurs, or rubs. Normal PMI, no JVD. No pulse deficits. Respiratory: Lungs have equal breath sounds bilaterally, clear to auscultation and percussion. No rales, rhonchi or wheezes noted. No increased work of breathing, no retractions or nasal flaring. Abdomen/GI: Soft, non-tender, with normal bowel sounds. No distension or tympany. No guarding or rebound. No evidence of tenderness throughout. 18:18 Skin: abscess, that is small, of the right foot, with fluctuance, that is mild, with surrounding cellulitis, that is moderate, cellulitis, that is moderate, on the right foot, Vital Signs: 16:47 BP 115 / 82; Pulse 75; Resp 17 S; Temp 98.5(O); Pulse Ox 100% on R/A; Height 5 ft. 6 kc6 in. (R); Pain 6/10; 18:00 BP 118 / 78; Pulse 71; Resp 18; Temp 98; Pulse Ox 99% on R/A; ph 16:47 Pain Scale: Adult kc6 Procedures: 18:49 I \T\ D: Incision and drainage was performed for an abscess of the right right foot ms3 Prepped with alcohol, Anesthetized with 3 ml's 1% Lidocaine w/ Epi. Incised with #11 blade. Drained moderate amount purulent fluid. Loculations removed. Abscess cavity explored. Packed with iodoform gauze, Dressing: sterile 4x4 gauze, the patient tolerated the procedure well. 18:49 I \T\ D: Incision and drainage was performed for an abscess of the right right foot ms3 Prepped with alcohol, Anesthetized with 2 ml's 1% Lidocaine w/ Epi. Incised with #11 blade. Drained small amount purulent fluid. Loculations removed. Abscess cavity explored. Dressing: sterile 4x4 gauze, the patient tolerated the procedure well. MDM: 16:57 Patient medically screened. ms3 18:18 Differential diagnosis: cellulitis, Abscess. Data reviewed: vital signs, nurses notes, ms3 and as a result, I will discharge patient. I considered the following discharge prescriptions or medication management in the emergency department Medications were administered in the Emergency Department. See MAR. Counseling: I had a detailed discussion with the patient and/or guardian regarding the historical points, exam findings, and any diagnostic results supporting the discharge/admit diagnosis, the need for outpatient follow up, to return to the emergency department if symptoms worsen or persist or if there are any questions or concerns that arise at home, Methamphetamine cessation. Special discussion: I discussed with the patient/guardian in detail that at this point there is no indication for admission to the hospital. It is understood, however, that if the symptoms persist or worsen the patient needs to return immediately for re-evaluation. ED course: 2 abscesses incised and drained on dorsum of right foot. Patient to follow-up Dr. Hawk in 2 to 3 days. Patient instructed to remove packing in 2 days. Patient understands agrees with plan. All questions were answered. Return precautions discussed include worsening symptoms, fevers, or any other concerns. Administered Medications: 17:17 Drug: Boostrix Tdap IM 0.5 ml IM once; as a single dose Route: IM; Site: right deltoid; ph 19:14 Follow up: Response: No adverse reaction ph 17:21 Drug: Lidocaine-Epinephrine Infiltration -1%: (1:100,000) 20 ml 20 ml Infiltration ph once; to bedside Volume: 20 ml; Route: Infiltration; 19:14 Follow up: Response: No adverse reaction ph 18:25 Drug: Doxycycline PO 100 mg PO once Route: PO; ll1 19:14 Follow up: Response: No adverse reaction ph Disposition Summary: 05/30/24 18:05 Discharge Ordered Notes: Location: Home ms3 Condition: Stable ms3 Diagnosis - Cutaneous abscess of right foot ms3 Followup: ms3 - With: Jono Hawk DO - When: 2 - 3 days - Reason: Recheck today's complaints Discharge Instructions: - Discharge Summary Sheet ms3 - Incision and Drainage ms3 - Skin Abscess, [id number] ms3 Forms: - Medication Reconciliation Form ms3 - Antibiotic Education ms3 - Prescription Opioid Use ms3 - Patient Portal Instructions ms3 - Leadership Thank You Letter ms3 Prescriptions: - Doxycycline Hyclate 100 mg Oral Tablet - take 1 tablet ORAL route every 12 hours; 20 tablet; Refills: 0, Product ms3 Selection Permitted Signatures: Caity Koch RN RN Jane Bundy RN RN ll1 Prateek Almaraz DO DO ms3 Kim Mittal RN RN kc6 Corrections: (The following items were deleted from the chart) 18:50 18:49 I \T\ D: Incision and drainage was performed for an abscess of the right right foot ms3 Prepped with alcohol, Anesthetized with 3 ml's 1% Lidocaine w/ Epi. Incised with #11 blade. Drained moderate amount purulent fluid. Packed with iodoform gauze, Dressing: sterile 4x4 gauze, the patient tolerated the procedure well, ms3
[2024-05-30] MEDS ORDERED: DOXYCYCLINE 100 MG CAP PO ONE (18:19)
[2024-05-30 19:01] VITALS: BP 115/82; TEMP 98.5; O2SAT 100
== END 2024-05-30 18:39 | disposition home or self-care (01) ==
LOC: ER 16:27
PROC: 0H9MXZZ Drainage of Right Foot Skin, External Approach (ICD-10-PCS; principal; 2024-05-30)
DX: L02.611 Cutaneous abscess of right foot (principal); L03.115 Cellulitis of right lower limb
CPT/HCPCS: 96372; 99284